=== PATIENT | male | born 1945 | race Caucasian/White ===

== ENCOUNTER 2023-06-14 07:55 | Outpatient (OUT) | payer MEDICARE, OTHER, SELFPAY ==
--- NOTE | 2023-06-14 08:04 | XR_ITS ---
The [address] [address] Patient Name: SARAH VARGAS MRN: [id number] date: 1945 Sex: M Assigned Patient Location: [facility] Current Patient Location: [facility] Accession/Order Number: [id number] Exam Date: 06/14/2023 08:10 Report Date: 06/14/2023 09:34 At the request of: PREETHI DONALD Procedure: XR chest 2V EXAM: XR chest 2V HISTORY: PRE OP EXAM COMPARISON: None. TECHNIQUE: PA and lateral views of the chest. FINDINGS: The cardiomediastinal silhouette is normal. No focal consolidation is identified. There is no pneumothorax. No pleural effusion is noted. The osseous structures are intact. XR/XR chest 2V IMPRESSION: No acute cardiopulmonary process. Electronically authenticated by: RIGO SORIA Date: 06/14/2023 09:34
--- NOTE | 2023-06-14 08:04 | ECG_ITS ---
The [facility] Test Date: 2023-06-14 Pat Name: SARAH VARGAS Department: Room: - Gender: Male Wellness Nurse: : 1945 Requested By: PREETHI DONALD Order Number: [id number] Reading MD: MAX ROGERS Measurements Intervals [place] Rate: 68 P: 60 AR: 235 QRS: 11 QRSD: 90 T: 28 QT: 382 QTc: 409 Interpretive Statements SINUS RHYTHM WITH FIRST DEGREE AV BLOCK No previous ECG available for comparison Electronically Signed On 06-16-2023 18:38:07 EDT by MAX ROGERS
--- NOTE | 2023-06-14 09:08 | P.GSHP_ITS ---
History of Present Illness History of Present Illness Chief complaint: bladder tumor, history of bladder cancer Narrative: Patient presents for preadmission testing. Please see HPI from Dr. Lafleur dated 06/12/2023. Review of Systems ROS Narrative Please see ROS from Dr. Lafleur dated 06/12/2023. [facility] Medical History (Updated 06/14/23 @ 09:01 by Tricia Archer NP) (2021) (2003) Surgical History (Updated 06/14/23 @ 09:01 by Tricia Archer NP) (05/03/22) (05/21/19) (12/16/14) (2009) (2009) (2001) (08/31/21) (06/19/18) Family History (Updated 06/14/23 @ 08:54 by Tricia Archer NP) Other Family history of breast cancer Family history of diabetes mellitus Liver disease Social History (Updated 06/14/23 @ 09:07 by Tricia Archer NP) Within the past year, how often did you have a drink containing alcohol: monthly or less Smoking status: Former smoker Previous occupational history: Retired Highest level of school completed/degree received: high school graduate Meds Home Medications and Allergies Home Medications Medication Instructions Recorded Confirmed Type atorvastatin 20 mg tablet 20 mg PO DAILY 06/14/23 06/14/23 History enalapril maleate 10 mg tablet 10 mg PO DAILY 06/14/23 06/14/23 History hydrochlorothiazide 12.5 mg capsule 12.5 mg PO DAILY 06/14/23 06/14/23 History metformin 500 mg tablet 500 mg PO BID 06/14/23 06/14/23 History omeprazole 40 mg capsule,delayed 40 mg PO BID 06/14/23 06/14/23 History release restore eye supplement PO 06/14/23 History tadalafil 20 mg tablet (Cialis) 20 mg PO DAILY PRN sexual activity 06/14/23 06/14/23 History Allergies Allergy/AdvReac Type Severity Reaction Status Date / Time Iodinated Contrast Media Allergy Rash Verified 06/14/23 08:23 Penicillins Allergy Verified 06/14/23 08:23 BCG treatment Allergy Uncoded 06/14/23 08:23 Exam Narrative Exam Narrative: Constitutional: Awake, alert, comfortable, well-appearing, nontoxic, interactive, vital signs as charted Head: Normocephalic, atraumatic Neck: Supple, normal appearance, normal range of motion, no meningeal signs, no lymphadenopathy Respiratory: No respiratory distress, breath sounds clear Cardiovascular: Regular rate and rhythm, Systolic murmur noted Abdomen: Nontender, normal bowel sounds, soft, no CVA tenderness Musculoskeletal: Normal gait, no swelling or edema Skin: No rashes or induration, no lesions, only visible skin inspected Neuro: No neurological deficits, normal sensation Psychiatric: Oriented ?3, normal affect Assessment and Plan Assessment and Plan (1) Bladder cancer: (2) Bladder tumor: Plan Cystoscopy/TURBT scheduled with Dr. Lafleur 06/20/2023.
[2023-06-14 09:17] LABS: INR 1.04; Partial Thromboplastin Time 24.4 sec (22.3-36.2)
[2023-06-14 09:47] LABS: BUN Creatinine Ratio 15.2; Calcium 8.8 mg/dL (8.5-10.1); Carbon Dioxide 30.1 mmol/L (21.0-32.0); Chloride 101 mmol/L (98-107); Estimated GFR (African America >60 (>=60); Estimated GFR (Non-African Ame >60 (>=60); Glucose 199 mg/dL (74-106); Potassium 4.1 mmol/L (3.5-5.1); Sodium 138 mmol/L (136-145)
== END 2023-06-14 07:56 | disposition home or self-care (01) ==
PROVIDERS: PCP Family Medicine; Visit Provider Urology
DX: Z01.812 Encounter for preprocedural laboratory examination (principal); Z01.810 Encounter for preprocedural cardiovascular examination; D49.4 Neoplasm of unspecified behavior of bladder; Z85.51 Personal history of malignant neoplasm of bladder; R31.9 Hematuria, unspecified; E78.5 Hyperlipidemia, unspecified; K21.9 Gastro-esophageal reflux disease without esophagitis; E11.9 Type 2 diabetes mellitus without complications; I10 Essential (primary) hypertension
CPT/HCPCS: 71046; 80048; 85610; 85730; 93005; G0463

== ENCOUNTER 2023-06-20 09:25 | Day surgery (SDC) | payer MEDICARE, OTHER, SELFPAY ==
[2023-06-14 09:02] VITALS: BP 137/72; PULSE 72; RESP 16; TEMP 36.3; O2SAT 96; BMI 27.4
[2023-06-20] VITALS (12 sets, daily range): BP systolic 132–176; BP diastolic 68–98; PULSE 60–88; RESP 10–23; TEMP 36.4–36.6; O2SAT 93–97; BMI 27.7
[2023-06-20] MEDS: LACTATED RINGER'S SOLUTION 1,000 ML 50 ML IV (09:50)
[2023-06-20 09:55] LABS: Glucometer 157 mg/dL (74-106)
[2023-06-20] MEDS: CIPROFLOXACIN IN 5 % DEXTROSE 400 MG/200 ML PIGGYBACK 200 MG IV (11:02)
--- NOTE | 2023-06-20 12:04 | P.URON_ITS ---
Urology Surgery Operative Note Operative Note Procedure Date: 06/20/23 Time Out Performed: yes Pre-op Diagnosis: recurrent bladder tumors Post-op Diagnosis: same as pre-op Procedures performed: #1. Cystoscopy. #2. Transurethral resection of bladder tumors 3cm. #3. Fulguration of tiny sheets of bladder tumors Anesthesia: FREDO Primary Surgeon: Dylan Lafleur Complications: none Estimated blood loss (mL): 0 Findings: two papillary tumors each one to one and a half centimeters in size. sheets of tiny tumors on the left wall. 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 On surveillance cystoscopy he was found to have a couple more recurren tatianna. He now presents for cystoscopy and transurethral resection of bladder tumors. He has signed an informed consent after all risks were explained to him in great detail. Detailed description of Procedure: The patient was brought to the operating room and placed on the operating room table in the supine position. SCDs were placed on the lower extremities and turned on and functioning during the entire case. Timeout was done by all parties in the room. We all agreed upon the patient's identification and the planned procedures for this patient. Genn. anesthesia was then administered. The patient was then repositioned into the modified dorsal lithotomy position. All pressure points were satisfactorily padded. Genitalia were sterilely prepped and draped in usual fashion.I started by passing a 26 Irish Olympus resectoscope with the standard bipolar loop electrode per urethra and into the bladder. Careful panendoscopy revealed 3 areas of tumors. One papillary TCC tumor on the anterior back wall which was about a centimeter and a half in size. On papillary TCC tumor on the anterior left wall which was about a centimeter and half in size.on the left wall, there was two centimeters worth of sheets of tiny tumors. I started with the papillary tumors. I uniformly and deeply resected both of these. The resection beds were coagulated Love. The ellick was used to get the tumor out of the bladder and these were sent for permanent sections. I then coagulated sheets of tiny tumors on the left wall. Upon completion there was no evidence of any bleeding or remaining tumors. The bladder was drained of its contents and the scope was then removed.the anesthetic was then reversed. The patient was then transferred to a [facility] bed and wheeled to PACU in stable condition.
--- NOTE | 2023-06-20 13:20 | PC.NURSE ---
pt urinates without difficulty
== END 2023-06-20 13:10 | disposition home or self-care (01) ==
PROVIDERS: PCP Family Medicine; Visit Provider Urology
PROC: (CPT 52234; principal; 2023-06-20 10:30)
DX: C67.9 Malignant neoplasm of bladder, unspecified (principal); Z85.51 Personal history of malignant neoplasm of bladder; R31.9 Hematuria, unspecified; E78.5 Hyperlipidemia, unspecified; K21.9 Gastro-esophageal reflux disease without esophagitis; I10 Essential (primary) hypertension; E11.9 Type 2 diabetes mellitus without complications; Z87.891 Personal history of nicotine dependence; Z79.84 Long term (current) use of oral hypoglycemic drugs; N40.1 Benign prostatic hyperplasia with lower urinary tract symptoms; E78.00 Pure hypercholesterolemia, unspecified; R97.20 Elevated prostate specific antigen [PSA]; Z87.442 Personal history of urinary calculi; N52.9 Male erectile dysfunction, unspecified; I35.0 Nonrheumatic aortic (valve) stenosis
CPT/HCPCS: 52234; 36415; 82948; 88307; J2704

== ENCOUNTER 2023-08-01 07:43 | Outpatient (RCR) | payer MEDICARE, OTHER, SELFPAY ==
[2023-08-01 07:54] VITALS: BP 163/74; PULSE 77; RESP 18; TEMP 36.3; O2SAT 96
[2023-08-01] MEDS: MITOMYCIN 40 MG in WATER FOR INJECTION,STERILE 20 ML 20 MG IRR (08:06)
[2023-08-01] MEDS: LIDOCAINE 2% JELLY 10 ML UR (08:06)
--- NOTE | 2023-08-01 08:56 | PC.NURSE ---
0805 Attempted to insert #16 rodgers catheter, unable to pass, meet resistance, notes small amount of blood in rodgers catheter. Reattempted to pass #14 Greek rodgers catheter, able to insert rodgers to y (balloon port) no urine return. irrigated with NS, with no return in rodgers catheter tubing. Balloon slowlyinflated without any complaints of pain or pressure, irrigated rodgers, with some bleeding and fluid leaking around rodgers. Patient denies any pain or discomfort, rodgers catheter dc'd. patient ambulated to bathroom, states passed small amount of blood initially then voided clear michael urine without any problems.[address] Lafleur office, Suzanna from Dr. Lafleur office instructed us to call OR at [facility] and speak with Dr. Lafleur. 0840 Called OR, spoke with charge nurse to relaymessage to Dr. Lafleur. 0845 OR returned call, to take patient to surgery department where Dr. Lafleur will place rodgers. Patient informed of this information, Patient dressed and taken ambulatory to the OR Department.
--- NOTE | 2023-08-01 09:46 | PC.NURSE ---
0940 returned to [facility]is department after having coude catheter placed per Dr. Lafleur. Returned to department with catheter plug in placed. 0938 Mitomicin infused into bladder as ordered. Patient instructed on turning position every 10 mins x 1 hour. verbalizes underdstanding.
--- NOTE | 2023-08-01 10:13 | PC.NURSE ---
0948 repositioned to rt side 1000 repositioned to left side, 1010 repositioned to abd.
== END 2023-08-15 23:59 | disposition home or self-care (01) ==
LOC: INF 07:43
PROVIDERS: PCP Family Medicine; Visit Provider Urology
DX: Z85.51 Personal history of malignant neoplasm of bladder (principal)
CPT/HCPCS: 51700; J9280

== ENCOUNTER 2023-08-01 09:11 | Outpatient (OUT) | payer MEDICARE, OTHER, SELFPAY ==
[2023-08-01] MEDS: LIDOCAINE 2% JELLY 10 ML UR (09:21)
[2023-08-01 11:15] VITALS: BP 182/78; PULSE 79; RESP 20; O2SAT 97
== END 2023-08-01 09:38 | disposition home or self-care (01) ==
PROVIDERS: PCP Family Medicine; Visit Provider Urology
DX: Z85.51 Personal history of malignant neoplasm of bladder (principal)
CPT/HCPCS: 51702; 51700; J9280

== ENCOUNTER 2024-12-14 09:46 | Outpatient (OUT) | payer MEDICARE, OTHER, SELFPAY ==
--- NOTE | 2024-12-14 10:02 | ECG_ITS ---
The [facility] Test Date: 2024-12-14 Pat Name: SARAH VARGAS Department: Room: - Gender: Male Drug Abuse Worker: : 1945 Requested By: PREETHI DONALD Order Number: [id number] Laura MD: IVONNE ALBRECHT M.D. Measurements Intervals [place] Rate: 67 P: 51 HI: 228 QRS: 20 QRSD: 92 T: 29 QT: 396 QTc: 418 Interpretive Statements SINUS RHYTHM WITH SINUS ARRHYTHMIA WITH FIRST DEGREE AV BLOCK Abnormal ECG Compared to ECG 06/14/2023 08:39:06 No significant changes Electronically Signed On 12-14-2024 20:24:59 EDT by IVONNE ALBRECHT M.D.
--- OUTSIDE RECORDS SUMMARY | 2024-12-14 10:08 | XMS_ITS | CCD ---
Author Organization [facility] Care Team Providers Care Triage Specialist Name Role Phone Ron Mcnamara Primary Care Physician Verona Aldridge Unavailable Unavailable Steffanni, Sophia Unavailable Unavailable Holleran, Suzanna Unavailable Unavailable LAFLEUR, DR ORO Consulting Unavailable REQUEST, DR WALTERS LISTED Primary Care Unavaila ble LAFLEUR, DR ORO Admitting Unavailable LAFLEUR, DR ORO Attending Unavailable LAFLEUR, DR ORO Consulting Unavailable MCNAMARA, DR VELASQUEZ Primary Care Unavailable LAFLEUR, DR ORO Attending Unavailable LAFLEUR, DR ORO Admitting Unavailable FULLER, RIAN Consulting Unavailable LAFLEUR, DR ORO Consulting Unavailable LAFLEUR, DR ORO Attending Unavailable MCNAMARA, DR VELASQUEZ Primary Care Unavailable LAFLEUR, DR ORO Admitting Unavailable PACE, FANNIE Consulting Unavailable LAFLEUR, DR ORO Consulting Unavailable LAFLEUR, DR ORO Attending Unavailable MCNAMARA, DR VELASQUEZ Referring Unavailable LAFLEUR, DR ORO Admitting Unavailable REQUEST, DR WALTERS LISTED Primary Care Unavaila ble LAFLEUR, DR ORO Consulting Unavailable LAFLEUR, DR ORO Attending Unavailable MCNAMARA, DR VELASQUEZ Primary Care Unavailable LAFLEUR, DR ORO Admitting Unavailable AGUBOSIM, JOSE FRANCISCO Consulting Unavailable LANGDAVID, YOON Consulting Unavailable LAFLEUR, DR ORO Consulting Unavailable MCNAMARA, DR VELASQUEZ Primary Care Unavailable LAFLEUR, DR ORO Admitting Unavailable LAFLEUR, DR ORO Attending Unavailable LONG, HOLLY Consulting Unavailable GRETCHEN, LISBET Consulting Unavailable LAFLEUR, DR ORO Consulting Unavailable LAFLEUR, DR ORO Attending Unavailable MCNAMARA, DR VELASQUEZ Primary Care Unavailable LAFLEUR, DR ORO Admitting Unavailable LAFLEUR, DR ORO Consulting Unavailable REQUEST, DR WALTERS LISTED Primary Care Unavaila ble LAFLEUR, DR ORO Admitting Unavailable LAFLEUR, DR ORO Attending Unavailable LAFLEUR, DR ORO Consulting Unavailable LAFLEUR, DR ORO Attending Unavailable LAFLEUR, DR ORO Admitting Unavailable REQUEST, NONE LISTED Primary Care Unavaila ble LAFLEUR, DR ORO Consulting Unavailable LAFLEUR, DR ORO Attending Unavailable LAFLEUR, DR ORO Admitting Unavailable REQUEST, NONE LISTED Primary Care Unavaila Ron Clemons MD Unavailable [phone] Ron Mcnamara MD Primary Care Provider [phone] Preethi LAFLEUR Attending Unavailable LAFLEUR, Preethi Arango Attending Unavailable LAFLEUR, Preethi Arango Attending Unavailable LAFLEUR, Preethi Arango Admitting Unavailable RON MCNAMARA Attending Unavailable RON MCNAMARA Attending Unavailable ASH BARROS Attending Unavailable SANDRA AUGUST Attending Unavailab RON Drummond Attending Unavailable Preethi LAFLEUR Attending Unavailable LAFLEURPreethi Attending Unavailable LAFLEUR, Preethi Arango Admitting Unavailable LAFLEUR, Preethi Arango Attending Unavailable Allergies Allergy Classification Reported Allergen(s) Allergy Type Date of Onset Reaction(s) Facility (10 sources) BCG, Live, [place] Strain; Translations: [BCG vaccine] Drug Allergy Fever (finding) [facility] Comment on above: had flu like symptom s (13 sources) Penicillin; Translations: [penicillin] Drug Allergy Eruption of skin (disorder) [facility] (13 sources) IVP - Intravenous pyelogram; Translations: [Intravenous pyelogram (procedure)] Drug allergy Dyspnea (finding[facility] (1 source) Iodine (And Iodine Containting Drugs) Drug allergy (disorder) 5 [facility] (1 source) Penicillins Drug allergy (disorder) 5 [facility] (1 source) BCG Live Drug allergy (disorder) 5 [facility] (10 sources) BCG, Live, [place] Strain Drug Allergy 3 Fever [facility] (10 sources) Iodine Drug Allergy 2 Unknown [facility] (10 sources) Penicillin G Drug Allergy 3 [facility] (10 sources) Iodinated Contrast Media Drug Intolerance 3 [facility] Work Phone: (3 sources) BCG; Translations: [BCG] Propensity to adverse reactions (disorder) [facility] Medications Current Medications Medication Drug Class(es) Dates Sig (Normalized) Sig (Original) aspirin 81 mg delayed release oral tablet (7 sources) Platelet Aggregation Inhibitor, Nonsteroidal Anti-inflammatory Drug Start: 01-25-2022 End: 03-25-2024 take 1 tablet by mouth once daily aspirin 81 mg Oral EC Tab 81 mg = 1 tab(s), Oral, Daily, # 30 tab(s), Refills(s) 0, Pharmacy: [facility], 182.9, cm, 01/24/22 14:35:00 EDT, Height/Length Dosing, 94.1, kg, 01/24/22 14:35:00 EDT, Weight Dosing Start Date: 01/25/22 Status: Ordered Start: 01-25-2022 take 1 tablet by esther th once daily aspirin 81 mg Oral EC Tab 81 mg = 1 tab(s), Oral, Daily, # 30 tab(s), Refills(s) 0, Pharmacy: [facility] 1985, 182.9, cm, 01/24/22 14:35:00 EDT, Height/Length Dosing, 94.1, kg, 01/24/22 14:35:00 EDT, Weight Dosing Start Date: 01/25/22 Status: Ordered atorvastatin 40 mg oral tablet (20 sources) HMG-CoA Reductase Inhibitor Start: 08-26-2023 End: 08-26-2024 atorvastatin (Lipitor) 40 MG tablet Indications: Aortic valve stenosis, etiology of cardiac valve disease unspecified TAKE 1 TABLET ONCE DAILY (INCREASED DOSE) 90 tablet 1 08/26/2024 Active Start: 08-12-2017 take 1 tablet by esther th once daily atorvastatin 20 mg Tab 20 mg = 1 tab(s), Oral, Daily, High cholesterol Start Date: 08/12/17 Status: Ordered cephalexin 500 mg oral capsule (1 source) Cephalosporin Antibacterial Start: 06-27-2022 End: 07-04-2022 take 1 capsule by mouth every twelve hours Keflex 500 mg Cap 500 mg = 1 cap(s), Oral, q12hr, Don't start antibiotic until urine submitted for culture., X 7 day(s), # 14 cap(s), Refills(s) 0, Pharmacy: [facility] 1986, 182, cm, 02/20/22 14:11:00 EDT, Height/Length Dosing, 96, kg, 02/20/22 14:11:00 EDT, Keith... Start Date: 06/27/22 Stop Date: 07/04/22 Status: Ordered ciprofloxacin 500 mg oral tablet (13 sources) Quinolone Antimicrobial Start: 06-04-2024 End: 06-09-2024 take 1 tablet by mouth in the morning ciprofloxacin (Cipro) 500 MG tablet Indications: Encounter for counseling for travel Take 1 tablet (500 mg) by mouth in the morning and 1 tablet (500 mg) before bedtime. Do all this for 5 days. 10 tablet 06/04/2024 06/09/2024 Active Start: 11-14-2022 End: 03-25-2024 ciprofloxacin (Cipro) 500 MG tablet Take 500 mg by mouth 11/14/2022 03/25/2024 Discontinued Start: 12-21-2021 take 1 tablet by esther once daily Cipro 500 mg Tab 500 mg = 1 tab(s), Oral, Daily, Take 1 tablet the day before the procedure and 1 tablet after the procedure, # 2 tab(s), Refills(s) 0, Pharmacy: [facility] 1986, 182, cm, 09/06/21 9:48:00 EST, Height/Length Dosing, 99, kg, 09/06/21 9:48:00 EST,... Start Date: 12/21/21 Status: Ordered Colace (6 sources) Start: 07-01-2023 Colace Oral, B ID, Refills(s) 0 Start Date: 07/01/23 Status: Ordered End: 03-25-2024 Docusate Calcium (STOOL SOFT ENER PO) Stool Softener 03/25/2024 Discontinued enalapril maleate 10 mg oral tablet (10 sources) Angiotensin Converting Enzyme Inhibitor Start: 03-23-2019 take 1 tablet by mouth once daily enalapril 10 mg Tab 10 mg = 1 tab(s), Oral, Daily, Refills(s) 0, High blood pressure Start Date: 03/23/19 Status: Ordered Fish Oils (6 sources) Start: 12-25-2010 take 1000 mg by mouth twice daily Fish Oil 1,000 mg, Oral, BID, Refill(s) 0, Prophylaxis Start Date: 12/25/10 Status: Ordered glipiZIDE 5 mg oral tablet (17 sources) Sulfonylurea Start: 11-13-2023 End: 08-26-2024 take 1 tablet by mouth once daily glipiZIDE (Glucotrol) 5 MG tablet Indications: Type 2 diabetes mellitus without complication, without long-term current use of insulin (CMS/HCC) Take 1 tablet (5 mg) by mouth Daily 90 tablet 1 08/26/2024 Active Start: 09-11-2017 take 5 mg by mouth once daily glipiZIDE 5 mg, Oral, Daily, Refills(s) 0, High blood sugar Start Date: 09/11/17 Status: Ordered hydroCHLOROthiazide 12.5 mg oral capsule (20 sources) Thiazide Diuretic Start: 11-13-2023 End: 08-26-2024 take 1 capsule by mouth in the morning hydroCHLOROthiazide (Microzide) 12.5 MG capsule Indications: Primary hypertension (CMS/HCC) Take 1 capsule (12.5 mg) by mouth in the morning. 90 capsule 1 08/26/2024 Active Start: 09-11-2017 take 12.5 mg by mout h once daily hydrochlorothiazide 12.5 mg, Oral, Daily, Refills(s) 0, diuretic/water pill Start Date: 09/11/17 Status: Ordered hydrocortisone 0.025 mg/mg topical ointment (10 sources) Corticosteroid Start: 08-26-2023 hydrocortisone 2.5 % ointment Indications: Diabetes mellitus without complication (CMS/HCC) APPLY TO AFFECTED AREA TWICE DAILY FOR 30 DAYS 145 g 08/26/2023 Active lisinopril 10 mg oral tablet (13 sources) Angiotensin Converting Enzyme Inhibitor Start: 08-26-2023 End: 08-26-2024 lisinopril 10 MG tablet Indications: Primary hypertension (CMS/HCC) TAKE 1 TABLET ONCE DAILY (REPLACES ENALAPRIL) 90 tablet 08/26/2024 Active metFORMIN hydrochloride 500 mg oral tablet (20 sources) Biguanide Start: 08-26-2024 End: 08-26-2025 take 1 tablet by mouth in the morning metFORMIN (Glucophage) 500 MG tablet Indications: Type 2 diabetes mellitus without complication, without long-term current use of insulin (CMS/HCC) Take 1 tablet (500 mg) by mouth in the morning and 1 tablet (500 mg) in the evening. Take with meals. 180 tablet 1 08/26/2024 08/26/2025 Active Start: 07-12-2023 End: 08-26-2024 take 0.5 tablet by mouth in the morning metFORMIN (Glucophage) 1000 MG tablet Indications: Type 2 diabetes mellitus without complication, without long-term current use of insulin (CMS/HCC) Take 0.5 tablets (500 mg) by mouth in the morning and 0.5 tablets (500 mg) in the evening. Take with meals. 180 tablet 07/12/2023 08/26/2024 Discontinued (Reorder) Start: 10-20-2020 take 1 tablet by esther th twice daily metformin 500 mg oral tablet 500 mg = 1 tab(s), Oral, BID, Refills(s) 0, Blood glucose Start Date: 10/20/20 Status: Ordered omeprazole 40 mg delayed release oral capsule (18 sources) Proton Pump Inhibitor Start: 08-11-2012 End: 08-26-2024 take 1 capsule by mouth in the morning omeprazole (PriLOSEC) [address] capsule Indications: Gastroesophageal reflux disease without esophagitis Take 1 capsule (40 mg) by mouth in the morning and 1 capsule (40 mg) before bedtime. 180 capsule 3 08/26/2024 Active Prilosec 40 mg Cap-EC (3 sources) Start: 08-11-2012 take 1 capsule by mouth twice daily Prilosec 40 mg Cap-EC 40 mg, Oral, BID, Refills(s) 0, Indigestion Start Date: 08/11/12 Status: Ordered restore- eye supplement (10 sources) Start: 10-20-2020 take 2 tablets by mouth once daily restore- eye supplement restore- eye supplement, 2 tab(s), Oral, Daily Start Date: 10/20/20 Status: Ordered sildenafil 100 mg oral tablet (2 sources) Phosphodiesterase 5 Inhibitor Start: 02-20-2024 take 1 tablet by mouth once daily as needed Viagra 100 mg Tab 100 mg = 1 tab(s), Oral, Daily, 1 hour before sexual activity as needed, # 30 tab(s), Refills(s) 3, Pharmacy: [facility], 182, cm, 06/24/23 6:36:00 EDT, Height/Length Dosing, 94.8, kg, 06/24/23 6:36:00 EDT, Weight Dosing Start Date: 02/20/24 Status: Ordered tamsulosin hydrochloride 0.4 mg oral capsule (6 sources) alpha-Adrenergic Gerard Start: 03-03-2023 take 1 capsule by mouth once daily tamsulosin 0.4 mg Cap 0.4 mg = 1 cap(s), Oral, Daily, # 30 cap(s), Refills(s) 3, Pharmacy: [facility] 1986, 182, cm, 11/14/22 7:35:00 EST, Height/Length Dosing, 98.1, kg, 11/14/22 7:35:00 EST, Weight Dosing Start Date: 03/03/23 Status: Ordered Start: 03-03-2023 End: 03-25-2024 take 1 capsule by mouth every twenty-four hours tamsulosin (Flomax) 0.4 MG 24 hr capsule Take 0.4 mg by mouth. 03/03/2023 03/25/2024 Discontinued Completed/Discontinued Medications Medication Drug Class(es) Dates Sig (Normalized) Sig (Original) acetaminophen 325 mg / oxyCODONE hydrochloride 5 mg oral tablet (3 sources) Opioid Agonist Start: 07-01-2023 End: 03-25-2024 take 1 tablet by mouth every six hours as needed oxyCODONE-acetamino phen (Percocet) 5-325 MG tablet TAKE 1 TABLET BY MOUTH EVERY 6 HOURS NEEDED WITH FOOD OR MILK FOR PAIN . DO NOT EXCEED 4000 MG OF ACETAMINOPHEN PER 24 HOURS 07/01/2023 03/25/2024 Discontinued Insulin Lispro (2 sources) Insulin Analog Start: 01-25-2022 End: 01-25-2022 Insulin Lispro Sliding Scale 0-10 Units, Injection-Insulin, SubCutaneous, Start date 01/25/22 16:30:00 EDT Start Date: 01/25/22 Stop Date: 01/25/22 Status: Completed Start: 01-25-2022 End: 01-25-2022 Insulin Lispro Sliding Scale 0-10 Units, Injection-Insulin, SubCutaneous, Start date 01/25/22 11:30:00 EDT Start Date: 01/25/22 Stop Date: 01/25/22 Status: Completed Isopropyl Alcohol (2 sources) Start: 10-01-2022 End: 03-25-2024 SURE COMFORT INS SYR 1CC/28G 28G X 1/2 1 ML misc 10/01/2022 03/25/2024 Discontinued tadalafil 20 mg oral tablet (8 sources) Phosphodiesterase 5 Inhibitor Start: 08-09-2021 take 1 tablet by mouth once daily Cialis 20 mg Tab 20 mg = 1 tab(s), Oral, Daily, Take 1 tab daily, # 30 tab(s), Refills(s) 3, Pharmacy: [facility] 1986, 182, cm, 08/09/21 7:49:00 EST, Height/Length Dosing, 99, kg, 08/09/21 7:49:00 EST, Weight Dosing Start Date: 08/09/21 Status: Ordered Problems Active Problems Problem Classification Problem Date Documented Date Episodic/Chronic Cancer of bladder (20 sources) Malignant tumor of urinary bladder; Translations: [Malignant neoplasm of bladder, unspecified] Onset: 12-07-2021 03-23-2019 Chronic Cancer of bladder (20 sources) History of malignant neoplasm of bladder; Translations: [Personal history of malignant neoplasm of bladder] Onset: 12-26-2018 Episodic Cancer; other and unspecified primary (10 sources) H/O: malignant neoplasm 09-06-2021 Episodic Cancer; other and unspecified primary (10 sources) History of bladder neoplasm 09-04-2019 Episodic Chronic obstructive pulmonary disease and bronchiectasis (3 sources) Chronic obstructive pulmonary disease, unspecified; Translations: [Chronic obstructive lung disease] Onset: 09-12-2021 10-06-2024 Chronic Conduction disorders (10 sources) First degree atrioventricular block; Translations: [Atrioventricular block, first degree] Onset: 05-17-2016 04-10-2023 Chronic Deficiency and other anemia (1 source) Aplastic anemia, unspecified; Translations: [APLASTIC ANEMIA UNSPECIFIED] Onset: 01-17-2022 Chronic Diabetes mellitus with complications (6 sources) Cataract due to diabetes mellitus type 2; Translations: [Type 2 diabetes mellitus with diabetic cataract] 10-06-2024 Chronic Diabetes mellitus without complication (20 sources) Diabetes mellitus; Translations: [Type 2 diabetes mellitus without complication] Onset: 12-25-2018 03-23-2019 Chronic Diabetes mellitus without complication (2 sources) Hyperglycemia; Translations: [Hyperglycemia, unspecified] 10-06-2024 Episodic Disorders of lipid metabolism (20 sources) Hypercholesterolemia; Translations: [Hyperlipidemia] Onset: 01-24-2022 03-23-2019 Chronic Esophageal disorders (20 sources) Gastroesophageal reflux disease; Translations: [Gastroesophageal reflux disease without esophagitis] Onset: 01-24-2022 11-27-2013 Chronic Essential hypertension (20 sources) Essential hypertension; Translations: [Essential (primary) hypertension] Onset: 01-24-2022 Chronic Headache; including migraine (10 sources) Complicated migraine; Translations: [Migraine with aura, not intractable, without status migrainosus] Onset: 03-07-2023 03-07-2023 Chronic Headache; including migraine (1 source) Headache; Translations: [Headache, unspecified] Onset: 01-24-2022 Episodic Heart valve disorders (20 sources) Aortic stenosis, non-rheumatic ; Translations: [Nonrheumatic aortic (valve) stenosis] Onset: 05-17-2016 Chronic Hyperplasia of prostate (20 sources) Benign prostatic hypertrophy with outflow obstruction; Translations: [Benign prostatic hyperplasia with lower urinary tract symptoms] Onset: 09-12-2021 Chronic Osteoarthritis (10 sources) Localized, primary osteoarthritis of the shoulder region; Translations: [Primary osteoarthritis, unspecified shoulder] Onset: 03-07-2023 03-07-2023 Chronic Other aftercare (2 sources) Taking high risk medication; Translations: [Other residential (current) drug therapy] 01-30-2024 Episodic Other diseases of bladder and urethra (20 sources) Mass of urinary bladder; Translations: [Other specified disorders of bladder] Onset: 04-10-2023 05-20-2019 Chronic Other male genital disorders (20 sources) Male erectile dysfunction, unspecified; Translations: [Erectile dysfunction] Onset: 01-03-2022 Chronic Other male genital disorders (10 sources) Impotence 08-18-2019 Chronic Other nervous system disorders (1 source) Aphasia; Translations: [Aphasia] Onset: 01-24-2022 Chronic Other nervous system disorders (1 source) Postoperative pain ; Translations: [Other acute postprocedural pain] Onset: 07-01-2023 Episodic Other nutritional; endocrine; and metabolic disorders (6 sources) Body mass index 25-29 - overweight 05-10-2021 Episodic Spondylosis; intervertebral disc disorders; other back problems (20 sources) Cervical spondylosis; Translations: [Spondylosis without myelopathy or radiculopathy, cervical region] Onset: 02-10-2021 03-07-2023 Chronic Transient cerebral ischemia (10 sources) Transient cerebral ischemia; Translations: [Transient cerebral ischemic attack, unspecified] Onset: 03-07-2023 03-07-2023 Chronic Unclassified (1 source) CONTACT W/AND (SUSP) EXPOS COVID-19; Translations: [CONTACT W/AND (SUSP) EXPOS COVID-19] Onset: 05-01-2022 Past or Other Problems Problem Classification Problem Date Documented Da te Episodic/Chronic Abdominal hernia (20 sources) Right inguinal hernia ; Translations: [Inguinal hernia] Onset: 04-10-2023 10-18-2020 Episodic Calculus of urinary tract (20 sources) Kidney stone; Translations: [Calculus of kidney] Onset: 04-10-2023 03-23-2019 Episodic Genitourinary symptoms and ill-defined conditions (20 sources) Microscopic hematuria; Translations: [Hematuria, unspecified] Onset: 05-01-2022 04-24-2019 Episodic Inflammatory conditions of male genital organs (10 sources) Epididymitis Resolved: 03-23-2019 03-23-2019 Episodic Mood disorders (10 sources) Mood disorders Onset: 01-30-2024 01-30-2024 Neoplasms of unspecified nature or uncertain behavior (20 sources) Neoplasm of bladder; Translations: [Neoplasm of unspecified behavior of bladder] Onset: 01-03-2022 Episodic Other aftercare (1 source) Other residential (current) drug therapy; Translations: [OTH RESIDENTIAL CURRENT DRUG THERAPY] Onset: 05-09-2022 Episodic Other aftercare (1 source) intermediate card tender (current) use of oral hypoglycemic drugs; Translations: [TRACK PRODUCTION ENGINEER USE ORAL HYPOGLYCEMIC DX] Onset: 05-09-2022 Episodic Other aftercare (1 source) intermediate card tender (current) use of aspirin; Translations: [RESIDENTIAL CURRENT USE OF ASPIRIN] Onset: 05-09-2022 Episodic Other aftercare (1 source) snf (current) use of anticoagulants; Translations: [TRACK PRODUCTION ENGINEER CURRNT USE ANTICOAGULANTS] Onset: 05-01-2022 Episodic Other and unspecified benign neoplasm (1 source) Benign neoplasm of bladder; Translations: [BENIGN NEOPLASM OF BLADDER] Onset: 09-12-2021 Episodic Other circulatory disease (1 source) Personal history of transient ischemic attack (TIA), and cerebral infarction without residual deficits; Translations: [PERS HX TIA AND CI NO RESID DEFICIT] Onset: 05-09-2022 Episodic Other connective tissue disease (10 sources) Impingement syndrome of left shoulder region; Translations: [Impingement syndrome of left shoulder] Onset: 03-07-2023 03-07-2023 Episodic Other nutritional; endocrine; and metabolic disorders (14 sources) Overweight; Translations: [Overweight] Onset: 01-30-2024 06-21-2023 Episodic Other nutritional; endocrine; and metabolic disorders (20 sources) Overweight in adulthood with body mass index of 25 or more but less than 30; Translations: [Body mass index (BMI) 29.0-29.9, adult] Onset: 04-10-2023 06-21-2023 Episodic Other screening for suspected conditions (not mental disorders or infectious disease) (20 sources) Raised prostate specific antigen; Translations: [Elevated prostate specific antigen [PSA]] Onset: 09-12-2021 03-23-2019 Episodic Residual codes; unclassified (2 sources) Patient encounter status; Translations: [Other specified health status] Onset: 01-24-2022 Episodic Screening and history of mental health and substance abuse codes (20 sources) Ex-smoker; Translations: [Personal history of nicotine dependence] Onset: 09-12-2021 08-18-2019 Episodic Results Test Name Value Interpretation Reference Range Facility [facility]erson 11-27-2024 Reminders Reminders From: Nuzhat Steve To: EU - Recalls Lafleur; Sent: 07/23/2024 12:57:51 EST Show up: 11/14/2024 12:57:00 EST Subject: Cysto/FISH/cytol Due Date/Time: 12/07/2024 12:57:00 EDT Reminder/Recall Patient is due in February 2025 for 6 month cysto/fish/cytol (bt ck) Patient sched for TURBT on 12/24/24. LG Normal [facility] - Hematology and Cell countson 10-06-2024 HbA1c (Bld) [Mass fraction] 7.2 % [facility] No Panel Informationon 10-06 [facility] UroVysion Fish and Urine Cyt o ([facility])on 09-02-2024 UVFISH & UC Diagnosis Info Invalid Interpretation Code [facility] Comment on above: Result Comment: A:Ur ine,Urine:Voided Diagnosis Summary - Adequate cellularity for evaluation. Diagnosis Summary - The U[facility]Vysion FISH study detected normal copy numbers for chromosomes 3, 7, 17, and 9p21. 73 cells were analyzed in this evaluation. No evidence of aneuploidy for chromosomes 3, 7, or 17 or deletion of the 9p21 locus was found in cells present in this specimen. This test does not rule out the possibility of a low grade non-invasive papillary urothelial carcinoma. These findings should be correlated with cytology and cystoscopy results. * CPT: 03531, 63417. Microscopic Notes - Microscopic Notes - Abnormal cells 9p21 deletions: Abnormal cells aneploid events: Total cells analyzed: 73 Hematuria: Gross Description Site ID:A color Yellow fixative Alcohol Received 110 mls of clear yellow fluid with the patient's name and, Urine on the vial. Electronically signed by : on: 09/02/2024 16:09:23 Performed By: #### 1 [id number] #### [facility] [address] [place] [address] Ambulatory Visit Summaryon 1 10-27-2023 Ambulatory Visit Summary Ambulatory Visit Summary SAMSARAH :1945 Visit Date:08/26/2024 Ambulatory Visit Instructions Your Diagnosis Personal history of bladder cancer BPH with urinary obstruction Erectile dysfunction Bladder neoplasm of uncertain malignant potential Your Care Team Attending Physician - Preethi LAFLEUR MD Primary Care Physician - Los JENKINS, Ron Perea This Is Your Medications List Contact prescribing physician if questions or concerns Non-Formulary Medication (restore- eye supplement) atorvastatin (atorvastatin 20 mg Tab) docusate (Colace) enalapril (enalapril 10 mg Tab) glipiZIDE (glipiZIDE 5 mg Tab) hydrochlorothiazide metformin (metformin 500 mg oral tablet) omeprazole (Prilosec 40 mg Cap-EC) Procedures Performed Cystoscopy (08/26/2024), Flexible cystoscopy (03/25/2024), Laparoscopic repair of inguinal hernia (07/01/2023), Cystoscopy (06/12/2023), Cystoscopy (11/14/2022), Cystoscopy (01/03/2022), Cystoscopy (08/09/2021), Cystoscopy (05/10/2021), Cystoscopy (01/18/2021), Repair of right inguinal hernia (10/27/2020), 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 (08/30/2020), Cystoscopy (06/22/2020), Cystoscopy (03/30/2020), Cystoscopy (01/06/2020), Cystoscope (08/18/2019), TURBT - Transurethral resection of bladder tumour (05/21/2019), Cystoscopy (12/30/2018), Cystoscopy to remove object (06/30/2018), Cystoscopy and transurethral resection of bladder tumour (06/19/2018), History of ureteral stent placement (06/19/2018), Cataract extraction and insertion of intraocular lens (08/12/2017), TURP - Transurethral resection of prostate (06/07/2016), Urodynamics (02/01/2016), Urodynamics (02/01/2016), Laser bladder lesion therapy (05/30/2010), Cystoscopy (07/20/2009), TURBT - Transurethral resection of bladder tumor (05/05/2009), ESWL of kidney (09/16/2008), Removal of ureteral stent (09/16/2003), Cataract. Discharge Vitals Temperature (Temporal Artery) 37 ???C Heart Rate (Peripheral) 78 Respiratory Rate 16 Blood Pressure 121/76 Height 182 cm Height 72 in Weight 97.7 kg Weight 215.391 lb BMI 29.5 What to do next Scheduled Follow-Up Appointments Saturday 9:30 AM EDT With: Preethi LAFLEUR MD Where: [facility] [address] [address]- You Need to Schedule the Following Appointments Follow Up with Preethi LAFLEUR MD, URL When: Where: [facility] [address] , [place] [address]- Medications What How Much When Instructions Unchanged atorvastatin (atorvastatin 20 mg Tab) 1 Tablets By Mouth Every day Contact prescribing physician if questions or concerns Unchanged docusate (Colace) By Mouth 2 times a day Contact prescribing physician if questions or concerns Unchanged enalapril (enalapril 10 mg Tab) 1 Tablets By Mouth Every day Contact prescribing physician if questions or concerns Unchanged glipiZIDE (glipiZIDE 5 mg Tab) Contact prescribing physician if questions or concerns Unchanged hydrochlorothiazide 12.5 Milligram By Mouth Every day Contact prescribing physician if questions or concerns Unchanged metformin (metformin 500 mg oral tablet) 1 Tablets By Mouth 2 times a day Contact prescribing physician if questions or concerns Unchanged Non-Formulary Medication (restore- eye supplement) 2 Tablets By Mouth Every day Contact prescribing physician if questions or concerns Unchanged omeprazole (Prilosec 40 mg Cap-EC) 40 Milligram By Mouth 2 times a day Contact prescribing physician if questions or concerns Medications and Immunizations Administered Given lidocaine Top 2% Gel w/Appl 6 mL, 6 mL, Topical. For: Personal history of bladder cancer, BPH with urinary obstruction, Erectile dysfunction Allergies BCG (Fever) IVP - Intravenous pyelogram (hives, SOB - Shortness of breath) penicillin (Rash) Problems Ongoing - Any problem that you are currently receiving treatment for. Bladder cancer Bladder mass Bladder neoplasm of uncertain malignant potential Bladder tumor BMI 28.0-28.9,adult BPH with urinary obstruction Chronic GERD Diabetes Elevated cholesterol Elevated PSA Erectile dysfunction Former smoker Hematuria, microscopic History of bladder cancer Hyperlipidemia Hypertension Impotence Kidney stone Overweight Personal history of bladder cancer Reducible left inguinal hernia Historical - Any problem that you are no longer receiving treatment for. Acid reflux Epididymitis Right inguinal hernia Patient Survey You may receive a survey via text or e-mail asking about your office visit. Please share your experience with us by completing your survey. We appreciate your feedback and thank you for choosing us for your care. Education Materials Transurethral Resection of Bladder Tumor, Care After The following information offers guidance on how to care for yourself after yo (more content not included)... Normal [facility] UroVysion Fish and Urine Cyt o ([facility])on 08-26-2024 [facility] Method of Extraction Voided Normal [facility] Comment on above: Performed By: #### 1 [id number] #### [facility] [address] [place] [address] [facility] Number of Jars 1 Invalid Interpretation Code [facility] Comment on above: Performed By: #### 1 [id number] #### [facility] [address] [place] [address] [facility] Specimen Urine Normal [facility] Comment on above: Performed By: #### 1 [id number] #### [facility] [address] [place] [address] [facility] Type of Service Technical Only Normal [facility] Comment on above: Performed By: #### 1 [id number] #### [facility] [address] [place] [address] Urology Office/Clinic Noteon 08-26-2024 Urology Office/Clinic Note Urology Office/Clinic Note Chief Complaint personal hx of bladder cancer HPI Staff Cysto ABX TAKEN, need fish/cytol History of Present Illness Tests reviewed: I have reviewed the previous health record information and history for this patient from Dr. Lafleur. I have reviewed and verified the staff HPI to be accurate for this encounter. Review of Systems PHQ Score Initial Depression Screen Score: 0 SCORE ROS - Provider Constitutional: denies weight loss, denies hot flashes. Eyes: denies eye problems. Gastrointestinal: denies nausea, denies vomiting. Cardiovascular: denies chest pain or angina. Integumentary: no dryness Musculoskeletal: denies musculoskeletal symptoms. ENMT: denies otolaryngeal symptoms. Respiratory: no shortness of breath. Heme/Lymph: denies easy bleeding tendency, denies easy bruising tendency. Psychiatric: no confusion, no anxiety. Genitourinary: See HPI. Physical Exam Vitals & Measurements T: 37 ???C(Temporal Artery) HR: 78(Peripheral) RR: 16 BP: 121/76 HT: 72 in HT: 182 cm WT: 97.7 kg WT: 215.391 lb BMI: 29.5 General Appearance: alert, no distress, well nourished, well developed male. Genitourinary: normal scrotum, normal testes, normal urethra, normal epididymis, normal vas deferens/spermatic cord. Flank Pain: none. Bladder: nonpalpable. Procedure Operative Information Anesthesia Type: Local Procedure: Local Cystoscopy Complications: None Surgical risks, benefits, details of the procedure have been explained to the patient. Full informed consent has been obtained. Intraoperative Information Prepped: Patient is brought back to the endoscopy suite. Patient is placed in supine position. Patient prepped in the usual fashion with Betadine solution. 2% Xylocaine Jelly is placed per Urethra. After waiting several minutes, the Cystoscope is introduced. The Urethra is: Normal The Prostatic Urethra is: _Bilobar regrowth. Visual obstruction. The Bladder: _Three 1 cm classic TCC tumors at the back wall and dome, Trabeculated: Moderate (2) The Ureteral orifices: Show efflux of clear urine Specimens Removed: Voided specimen sent for FISH and Cytology test Removal: Cystoscope is removed. The patient tolerated it well. Postoperative Information Patient is discharged home with antibiotic coverage. Follow up arranged. Assessment/Plan 1. Personal history of bladder cancer (Z85.51: Personal history of malignant neoplasm of bladder) We do not have the original path. First record of cysto in [place] was 03/23/09 for hx of bladder cancer. First TURBT in our records 05/05/09 - Papillary transitional cell carcinoma, grade 2, non-invasive. Evolve laser of bladder tumor 08/30/20 - Noninvasive papillary urothelial low grade carcinoma. Mitomycin txs 05/25/21 and 06/26/21. TURBT 08/31/21 - Low grade non-invasive papillary cancer. TURBT 05/03/22 - Noninvasive papillary urothelial carcinoma, low grade. Mitomycin 06/21/22 and 08/23/22. TURBT 06/20/23 - Noninvasive papillary urothelial carcinoma, low grade. Mitomycin 08/01/23 and 08/29/23. Last cysto 03/25/24. Pt had 5 mo IO cysto to check for bladder tumor recurrence without complications today. Pt took prophylactic abx prior to procedure. Will send voided specimen for FISH/cytol and call pt if positive. 2. BPH with urinary obstruction (N40.1: Benign prostatic hyperplasia with lower urinary tract symptoms) S/P TURP 06/07/16. Not taking any BPH meds. 3. Erectile dysfunction (N52.9: Male erectile dysfunction, unspecified) Tri-mix and Cialis 20 mg prn. 4. Bladder neoplasm of uncertain malignant potential (D41.4: Neoplasm of uncertain behavior of bladder) See procedure section. Will schedule Cysto with TURBT. The procedure risks, benefits, details, and treatment alternatives have been discussed with the patient. These include bleeding -- sometimes to the point of hemorrhaging, infection, risk of bladder perforation, recurrence of bladder tumor in 60-70% of patients, need for indwelling catheter for a variable amount of time, as well as the rare risk of needing an open operation to repair the bladder, among others. Additional therapy as well as follow-up bladder evaluation will most likely be required. Full informed consent has been obtained. Will order General anesthesia. Follow-up With When Contact Information Preethi LAFLEUR MD, URL [facility] [address], [place] [address]- Additional Instructions: schedule Cysto with TURBT Patient Education Transurethral Resection of Bladder Tumor, Care After Transurethral Resection of Bladder Tumor ISheryl, personally scribed for Dr. Lafleur on 08/26/2024 08:03:14. . Documentation recorded by the scribe, Sheryl Augustin, accurately reflects the services(s) I performed and decisions made by me. Authenticated by Dr. Lafleur on 08/26/2024 08:04:02. Problem List/Past Medical History Ongoin (more content not included)... Normal [facility] Comment on above: Result Comment: Elec tronically Signed By: Preethi LAFLEUR MD\.br\Date and Time Signed: 08/26/24 08:04 EST\.br\Electronically Co-Signed By: Sheryl Augustin\.br\Date and Time Co-Signed: 08/26/24 08:03 EST Laboratory - Hematology and Cell countson 08-25-2024 HbA1c (Bld) [Mass fraction] 8.4 % [facility] No Panel Informationon 08-25 [facility] Reminderson 07-23-2024 Reminders Reminders From: Nuzhat Steve To: [facility] [place]; Sent: 03/31/2024 11:04:56 EDT Show up: 07/17/2024 11:04:00 EDT Subject: cysto/fish/cytol Due Date/Time: 08/10/2024 11:04:00 EST Reminder/Recall Patient is due in Sep 2024 for 6 month cysto/fish/cytol, bt ck Patient sched 08/26/24 due to vacation schedule.LG Normal [facility] Reminderson 03-31-2024 Reminders Reminders From: Nuzhat Steve To: [facility] - Recalls Lafleur; Sent: 02/04/2024 13:46:11 EDT Show up: 03/24/2024 13:46:00 EDT Subject: Cysto - Due Date/Time: 04/13/2024 13:46:00 EDT Reminder/Recall Patient is leaving 06/11/24 for cruise [place] 75 days. He will need a Cysto on return. Patient had cysto completed on 03/25/24. He is 6 month cysto/fish/cytol. Normal [facility] UroVysion Fish and Urine Cyt o ([facility])on 03-30-2024 [facility] Diagnosis Info Invalid Interpretation Code [facility] Comment on above: Result Comment: A:Ur ine,Urine:Voided Diagnosis Summary - Adequate cellularity for evaluation. Diagnosis Summary - The UroVysion FISH study detected normal copy numbers for chromosomes 3, 7, 17, and 9p21. 200 cells were analyzed in this evaluation. No evidence of aneuploidy for chromosomes 3, 7, or 17 or deletion of the 9p21 locus was found in cells present in this specimen. This test does not rule out the possibility of a low grade non-invasive papillary urothelial carcinoma. These findings should be correlated with cytology and cystoscopy results.* Microscopic Notes - Microscopic Notes - Abnormal cells 9p21 deletions: Abnormal cells aneploid events: Total cells analyzed: 200 Hematuria: Gross Description Site ID:A color Dark Yellow fixative Alcohol Received 100 mls of clear dark yellow fluid with the patient's name and, Urine on the vial. Electronically signed by : on: 03/30/2024 17:51:11 Performed By: #### 1 [id number] #### [facility] [address] [place] [address] Ambulatory Visit Summaryon 0 03-25-2024 Ambulatory Visit Summary Ambulatory Visit Summary SARAH MAGAÑA :1945 Visit Date:03/25/2024 Ambulatory Visit Instructions Your Diagnosis History of bladder cancer BPH with urinary obstruction Erectile dysfunction Your Care Team Attending Physician - Preethi LAFLEUR MD Primary Care Physician - Los JENKINS, Ron Perea This Is Your Medications List ciprofloxacin (Cipro 500 mg Tab) sildenafil (Viagra 100 mg Tab) tamsulosin (tamsulosin 0.4 mg Cap) Contact prescribing physician if questions or concerns Non-Formulary Medication (restore- eye supplement) atorvastatin (atorvastatin 20 mg Tab) docusate (Colace) enalapril (enalapril 10 mg Tab) hydrochlorothiazide metformin (metformin 500 mg oral tablet) omeprazole (Prilosec 40 mg Cap-EC) Procedures Performed Flexible cystoscopy (03/25/2024), Laparoscopic repair of inguinal hernia (07/01/2023), Cystoscopy (06/12/2023), Cystoscopy (11/14/2022), Cystoscopy (01/03/2022), Cystoscopy (08/09/2021), Cystoscopy (05/10/2021), Cystoscopy (01/18/2021), Repair of right inguinal hernia (10/27/2020), 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 (08/30/2020), Cystoscopy (06/22/2020), Cystoscopy (03/30/2020), Cystoscopy (01/06/2020), Cystoscope (08/18/2019), TURBT - Transurethral resection of bladder tumour (05/21/2019), Cystoscopy (12/30/2018), Cystoscopy to remove object (06/30/2018), Cystoscopy and transurethral resection of bladder tumour (06/19/2018), History of ureteral stent placement (06/19/2018), Cataract extraction and insertion of intraocular lens (08/12/2017), TURP - Transurethral resection of prostate (06/07/2016), Urodynamics (02/01/2016), Urodynamics (02/01/2016), Laser bladder lesion therapy (05/30/2010), Cystoscopy (07/20/2009), TURBT - Transurethral resection of bladder tumor (05/05/2009), ESWL of kidney (09/16/2008), Removal of ureteral stent (09/16/2003), Cataract. Discharge Vitals Temperature (Temporal Artery) 37 ?C Heart Rate (Peripheral) 76 Respiratory Rate 16 Blood Pressure 130/86 Height 182 cm Height 72 in Weight 96.9 kg Weight 213.18 lb BMI 29.25 What to do next You Need to Schedule the Following Appointments Follow Up with ODILON JENKINS, CHIDI [place] When: Where: [facility] [address], [place] [address]- Medications What How Much When Instructions Unchanged ciprofloxacin (Cipro 500 mg Tab) 1 Tablets By Mouth Every day Take 1 tablet the day before the procedure and 1 tablet after the procedure Unchanged sildenafil (Viagra 100 mg Tab) 1 Tablets By Mouth Every day 1 hour before sexual activity as needed Unchanged tamsulosin (tamsulosin 0.4 mg Cap) 1 Capsules By Mouth Every day Unchanged atorvastatin (atorvastatin 20 mg Tab) 1 Tablets By Mouth Every day Contact prescribing physician if questions or concerns Unchanged docusate (Colace) By Mouth 2 times a day Contact prescribing physician if questions or concerns Unchanged enalapril (enalapril 10 mg Tab) 1 Tablets By Mouth Every day Contact prescribing physician if questions or concerns Unchanged hydrochlorothiazide 12.5 Milligram By Mouth Every day Contact prescribing physician if questions or concerns Unchanged metformin (metformin 500 mg oral tablet) 1 Tablets By Mouth 2 times a day Contact prescribing physician if questions or concerns Unchanged Non-Formulary Medication (restore- eye supplement) 2 Tablets By Mouth Every day Contact prescribing physician if questions or concerns Unchanged omeprazole (Prilosec 40 mg Cap-EC) 40 Milligram By Mouth 2 times a day Contact prescribing physician if questions or concerns Medications and Immunizations Administered Given lidocaine Top 2% Gel w/Appl 11 mL, 11 mL, Topical. For: Allergies BCG (Fever) IVP - Intravenous pyelogram (hives, SOB - Shortness of breath) penicillin (Rash) Problems Ongoing - Any problem that you are currently receiving treatment for. Bladder cancer Bladder mass Bladder tumor BMI 28.0-28.9,adult BPH with urinary obstruction Chronic GERD Diabetes Elevated cholesterol Elevated PSA Erectile dysfunction Former smoker Hematuria, microscopic History of bladder cancer Hyperlipidemia Hypertension Impotence Kidney stone Overweight Personal history of bladder cancer Reducible left inguinal hernia Historical - Any problem that you are no longer receiving treatment for. Acid reflux Epididymitis Right inguinal hernia Patient Survey You may receive a survey via text or e-mail asking about your office visit. Please share your experience with us by completing your survey. We appreciate your feedback and thank you for choosing us for your care. Education Materials Cancer Screening for Men A cancer screening is a test or exam that checks for cancer. Your health care provider will recommend specific cancer screenings based on your age, medical history (including risk factors), and family history of cancer. Work with your health car (more content not included)... Normal [facility] UroVysion Fish and Urine Cyt o ( Labs)on 03-25-2024 [facility] Method of Extraction Bladder Urine Normal [facility] Comment on above: Performed By: #### 1 [id number] #### [facility] [address] [place] [address] [facility] Number of Jars 1 Invalid Interpretation Code [facility] Comment on above: Performed By: #### 1 [id number] #### [facility] [address] [place] [address] [facility] Specimen Urine Normal [facility] Comment on above: Performed By: #### 1 [id number] #### [facility] [address] [place] [address] [facility] Type of Service Technical Only Normal [facility] Comment on above: Performed By: #### 1 [id number] #### [facility] [address] [place] [address] Urology Office/Clinic Noteon 03-25-2024 Urology Office/Clinic Note Urology Office/Clinic Note Chief Complaint hx of bladder cancer HPI Staff Pt here for 9 mos cysto/FISH/cytol. Abx taken. S/p TURBT 06/20/23 - Noninvasive papillary urothelial carcinoma, low grade. Mitomycin 08/01/23 and 08/29/23. History of Present Illness Tests reviewed: reviewed I have reviewed the previous health record information and history for this patient from Dr. Lafleur. I have reviewed and verified the staff HPI to be accurate for this encounter. There have been no associated fever, chills, flank pain, or blood in the urine. Denies any urinary infections since last encounter. Review of Systems PHQ Score Initial Depression Screen Score: 0 SCORE ROS - Provider Constitutional: denies weight loss, denies hot flashes. Eyes: denies eye problems. Gastrointestinal: denies nausea, denies vomiting. Cardiovascular: denies chest pain or angina. Integumentary: no dryness Musculoskeletal: denies musculoskeletal symptoms. ENMT: denies otolaryngeal symptoms. Respiratory: no shortness of breath. Heme/Lymph: denies easy bleeding tendency, denies easy bruising tendency. Psychiatric: no confusion, no anxiety. Genitourinary: See HPI. Physical Exam Vitals & Measurements T: 37 ?C(Temporal Artery) HR: 76(Peripheral) RR: 16 BP: 130/86 HT: 72 in HT: 182 cm WT: 96.9 kg WT: 213.18 lb BMI: 29.25 General Appearance: alert, no distress, well nourished, well developed male. Genitourinary: normal scrotum, normal testes, normal urethra, normal epididymis, normal vas deferens/spermatic cord. Flank Pain: none. Bladder: nonpalpable. Procedure Operative Information Anesthesia Type: Local Procedure: Local Cystoscopy Complications: None Surgical risks, benefits, details of the procedure have been explained to the patient. Full informed consent has been obtained. Intraoperative Information Prepped: Patient is brought back to the endoscopy suite. Patient is placed in supine position. Patient prepped in the usual fashion with Betadine solution. 2% Xylocaine Jelly is placed per Urethra. After waiting several minutes, the Cystoscope is introduced. The Urethra is: Normal The Prostatic Urethra is: Bilobar regrowth. visual obstruction The Bladder: no tumors , diverticuli diffusly _, Trabeculated: Moderate (2) The Ureteral orifices: Show efflux of clear urine Specimens Removed: Voided specimen sent for FISH and Cytology test Removal: Cystoscope is removed. The patient tolerated it well. Postoperative Information Patient is discharged home with antibiotic coverage. Follow up arranged. Assessment/Plan 1. History of bladder cancer (Z85.51: Personal history of malignant neoplasm of bladder) We do not have the original path. First record of cysto in [place] was 03/23/09 for hx of bladder cancer. First TURBT in our records 05/05/09 - Papillary transitional cell carcinoma, grade 2, non-invasive. Evolve laser of bladder tumor 08/30/20 - Noninvasive papillary urothelial low grade carcinoma. Mitomycin txs 05/25/21 and 06/26/21. TURBT 08/31/21 - Low grade non-invasive papillary cancer. TURBT 05/03/22 - Noninvasive papillary urothelial carcinoma, low grade. Mitomycin 06/21/22 and 08/23/22. TURBT 06/20/23 - Noninvasive papillary urothelial carcinoma, low grade. Mitomycin 08/01/23 and 08/29/23. Pt had 8 mos IO cysto to check for bladder tumor recurrence without complications today. Pt took prophylactic abx prior to procedure. Will send voided specimen for FISH/cytol and call pt if positive. Follow up 6 mos surveillance cysto/bt ck/FISH/cytol or sooner if needed. Pt understands and agrees with plan. 2. BPH with urinary obstruction (N40.1: Benign prostatic hyperplasia with lower urinary tract symptoms) S/P TURP 06/07/16. 3. Erectile dysfunction (N52.9: Male erectile dysfunction, unspecified) Tri-mix and Cialis 20 mg prn. Follow-up With When Contact Information DOILON JENKINS, Preethi Arango, URL [facility] [address], [place] [address]- Additional Instructions: 6 mos surveillance cysto/bt ck/FISH/cytol Patient Education Cancer Screening for Men I, Sheryl Augustin, personally scribed for Dr. Lafleur on 03/25/2024 07:51:16. . Documentation recorded by the scribe, Vidhya Aly, accurately reflects the services(s) I performed and decisions made by me. Authenticated by Dr. Lafleur on 03/25/2024 08:04:11. Problem List/Past Medical History Ongoing Bladder cancer Bladder mass Bladder tumor BMI 28.0-28.9,adult BPH with urinary obstruction Chronic GERD Diabetes Elevated cholesterol Elevated PSA Erectile dysfunction Former smoker Hematuria, microscopic History of bladder cancer Hyperlipidemia Hypertension Impotence Kidney stone Overweight Personal history of bladder cancer Reducible left inguinal hernia Historical Acid reflux Epididymitis Right inguinal hernia Procedure/Surgical History Flexible cysto (more content not included)... Normal [facility] Comment on above: Result Comment: Elec tronically Signed By: Preethi LAFLEUR MD\.br\Date and Time Signed: 03/25/24 08:04 EDT\.br\Electronically Co-Signed By: Sheryl Augustin\.br\Date and Time Co-Signed: 03/25/24 08:03 EDT Laboratory - Hematology and Cell countson 01-30-2024 HbA1c (Bld) [Mass fraction] 6.9 % [facility] No Panel Informationon 01-29 Interpretation and review of laboratory results Normal [facility] CHEMISTRYOrdered By: Lab ROP User on 07-01-2023 Glucose [Mass/Vol] 182 mg/dL High 55 - 99 mg/dL [facility] POC Subsection Comment on above: Result Comment: Amy payton Meter POC Username [email or web address] [email or web address] Invalid Interpretation Code [facility] POC Subsection Sodium [Moles/Vol] [id number] mmol/L Invalid Interpretation Code [facility] POC Subsection Sodium [Moles/Vol] [id number] mmol/L Invalid Interpretation Code [facility] POC Subsection HEMATOLOGYOrdered By: Tavia Charles on 07-01-2023 Erythrocyte distribution width (RBC) [Ratio] 12.7 % Normal 10.9 - 14.2 % [facility] Hematocrit (Bld) [Volume fraction] 43.6 % Normal 37.7 - 49.0 % [facility] Hemoglobin (Bld) [Mass/Vol] 14.9 g/dL Normal 13.5 - 17.5 gm/dL [facility] MCH (RBC) [Entitic mass] 31.0 pg Normal 27.0 - 34.0 pg [facility]SS MCHC (RBC) [Mass/Vol] 34.2 g/dL Normal 31.4 - 36.0 gm/dL [facility] MCV (RBC) [Entitic vol] 90.8 fL Normal 80.0 - 100.0 fL [facility] Platelet mean volume (Bld) [Entitic vol] 8.6 fL Normal 6.4 - 10.8 fL [facility] Platelets (Bld) [#/Vol] 211.0 E9/L Normal 150.0 - 500.0 E9/L [facility] RBC (Bld) [#/Vol] 4.8 E12/L Normal 4.3 - 5.9 E12/L [facility] WBC corrected for nucl RBC Auto (Bld) [#/Vol] 8.3 E9/L Normal 4.0 - 11.0 E9/L [facility] POINT OF CARE GLUCOSEon 04-16 Glucose [Mass/Vol] 142 mg/dL Critically high 74-106 [facility] [facility] Comment on above: Performed By: #### P OCGLUC #### [facility] [address] [place], [place] [address] Dr. Michael Scott CBC AUTO DIFFon 04-27-2022 BASO # 0.1 103/ul Normal 0.0-0.1 [facility] Comment on above: Performed By: #### C BC ####[facility] [address] [place] [id number] Scott Basophils/100 WBC (Bld) 1.0 % Normal 0.2-2.0 [facility] Comment on above: Performed By: #### C BC ####[facility] Xvzncqdteq60[address] [place] [id number] Scott EO # 0.2 103/ul Normal 0.0-0.7 [facility] Comment on above: Performed By: #### C BC ####[facility] Lmzituejui38[address] [place] [id number]. Michael Scott Eosinophils/100 WBC (Bld) 2.1 % Normal 0.9-7.0 [facility] Comment on above: Performed By: #### C BC ####[facility] Gdialsdubo8[address] [place] [id number] Scott Erythrocyte distribution width (RBC) [Ratio] 12.0 % Normal 11.0-15.0 [facility] Comment on above: Performed By: #### C BC ####[facility] Gjhbproeyk6[address] [place] [id number] Scott Hematocrit (Bld) [Volume fraction] 46.9 % Normal 42.0-54.0 [facility] Comment on above: Performed By: #### C BC ####[facility] Wbyqwidffu2571 [place] [id number]. Michael Scott Hemoglobin (Bld) [Mass/Vol] 15.3 g/dL Normal 14.0-18.0 [facility] Comment on above: Performed By: #### C BC ####[facility] Ljmgehlpyd9[address] [place] [phone]. Michael Scott IG # 0.01 10e3/ul Normal 0.00-0.03 [facility] Comment on above: Performed By: #### C BC ####[facility] [address]yrbzbvt[address] [place] [address]Dr. Michael Scott IG % 0.1 % Normal 0.0-0.5 [facility] Comment on above: Performed By: #### C BC ####[facility] Sz[address]yretal[address] [place] [address]Dr. Michael Scott LYMPH # 2.8 103/ul Normal 1.2-3.8 [facility] Comment on above: Performed By: #### C BC ####[facility] Oxlxbtxbxr[address] [place] [address]Dr. Michael Scott Lymphocytes/100 WBC (Bld) 36.4 % Normal 20.5-60.0 [facility] Comment on above: Performed By: #### C BC ####[facility] Llwvfaahmf[address] [place] [address]Dr. Michael Scott MANUAL DIFF REQ NO Normal [facility] Comment on above: Performed By: #### C BC ####[facility] [address] [place], [place] [address]Dr. Michael Scott MCH (RBC) [Entitic mass] 30.8 pg Normal 25.9-34.0 [facility] Comment on above: Performed By: #### C BC ####[facility] [address]dh[address] [place], [place] [address]Dr. Michael Scott MCHC (RBC) [Mass/Vol] 32.6 g/dL Normal 29.9-35.2 [facility] Comment on above: Performed By: #### C BC ####[facility] Wyfjchreqa4[address] [place] [phone]. Michael Scott MCV (RBC) [Entitic vol] 94.4 fL Critically high 80.0-94.0 [facility] Comment on above: Performed By: #### C BC ####[facility] Hnqssxvhyk58[address] [place] [phone]. Michael Scott MONO # 0.6 103/ul Normal 0.3-0.8 [facility] Comment on above: Performed By: #### C BC ####[facility] Lmnyssifdq3556 [place] [phone]. Michael Scott Monocytes/100 WBC (Bld) 8.2 % Normal 1.7-12.0 [facility] Comment on above: Performed By: #### C BC ####[facility] Fwlqrdrkcd[address] [place], [place] [address]Dr. Michael Scott NEUT # 4.0 103/ul Normal 1.4-6.5 [facility] Comment on above: Performed By: #### C BC ####[facility] Xiapcjizss[address] [place], [place] [id number]. Michael Scott Neutrophils/100 WBC (Bld) 52.2 % Normal 43.0-75.0 [facility] Comment on above: Performed By: #### C BC ####[facility] Vbateumq[address] [place], [place] [address]Dr. Michael Scott Platelet mean volume (Bld) [Entitic vol] 10.4 fL Normal 9.5-13.5 [facility] Comment on above: Performed By: #### C BC ####[facility] Lvruuvsiar[address] [place] [phone]. Michael Scott PLT 194 103/ul Normal 150-450 [facility] Comment on above: Performed By: #### C BC ####[facility] Vhgzud[address] [place], [place] [address]Dr. Michael Tyler RBC 4.97 106/ul Normal 4.70-6.10 [facility] Comment on above: Performed By: #### C BC ####[facility] [address] [place] [phone]. Michael Scott WBC 7.7 103/ul Normal 4.0-11.0 [facility] Comment on above: Performed By: #### C BC ####[facility] Sy[address]ltfqdl32[address] [place] [phone]. Michael Scott Covid-19 PCR (CVDTB)on 04-16 SARS-CoV-2 (COVID-19) RNA JOHNATHON+probe Ql (Unsp spec) Not detected Normal NOT DETECTED [facility] Comment on above: Result Comment: This test is not yet approved or cleared by the [place] FDA. When there are no FDA-approved or cleared tests available, and other criteria are met, FDA can make tests available under an emergency access mechanism called an Emergency Use Authorization (EUA). The EUA for this test is supported by the [place] of Health and Human Service's (HHS's) declaration that circumstances exist to justify the emergency use of in vitro diagnostics for the detection and/or diagnosis of the virus that causes COVID-19. This EUA will remain in effect (meaning this test can be used) for the duration of the COVID-19 declaration justifying emergency of IVDs, unless it is terminated or revoked by FDA (after which the test may no longer be used). When diagnostic testing is negative, the possibility of a false negative should be considered in the context of a patient's recent exposures and the presence of clinical signs and symptoms consistent with SARS-CoV-2. Performed By: #### C VDTBH #### [facility] [address] [place] [address] Dr. Michael Scott PROF CHEM 8 (BAS METB)on Anion gap [Moles/Vol] 12.8 mmol/L Normal [facility] Comment on above: Performed By: #### B MP #### [facility] [address] [place], [place] [id number] Dr. Michael Scott Calcium [Mass/Vol] 9.1 mg/dL Normal 8.5-10.1 [facility] Comment on above: Performed By: #### B MP #### [facility] [address] [place] [address] Dr. Michael Scott Chloride [Moles/Vol] 100 mmol/L Normal 98-107 [facility] Comment on above: Performed By: #### B MP #### [facility] [address] [place] [address] [address] Michael Scott CO2 [Moles/Vol] 30.2 mmol/L Normal 21.0-32.0 [facility] Comment on above: Performed By: #### B MP #### [facility] [address] [place] [address] [address] Michael Scott Creatinine [Mass/Vol] 1.18 mg/dL Normal 0.70-1.30 [facility] Comment on above: Performed By: #### B MP #### [facility] [address] [place] [address] Dr. Michael Scott EGFR-AF HUNGARIAN >60 Normal >=60 [facility] Comment on above: Performed By: #### B MP #### [facility] [address] [place] [address] Dr. Michael Scott EGFR-NON AF HUNGARIAN 60 mL/min/1.73m2 Normal >=60 [facility] Comment on above: Performed By: #### B MP #### [facility] [address] [place] [address] [address] Michael Scott Glucose [Mass/Vol] 173 mg/dL Critically high 74-106 [facility] Comment on above: Performed By: #### B MP #### [facility] [address] [place] [address] Dr. Michael Scott Potassium [Moles/Vol] 5.0 mmol/L Normal 3.5-5.1 [facility] Comment on above: Performed By: #### B MP #### [facility] [address] [place] [address] [address] Michael Scott Sodium [Moles/Vol] 138 mmol/L Normal 136-145 [facility] Comment on above: Performed By: #### B MP #### [facility] [address] [place] [address] [address] Michael Scott Urea nitrogen [Mass/Vol] 16.0 mg/dL Normal 7.0-18.0 [facility] Comment on above: Performed By: #### B MP #### [facility] [address] [place] [address] Dr. Michael Soctt Urea nitrogen/Creatinine [Mass ratio] 13.6 mg/mg Normal [facility] Comment on above: Performed By: #### B MP #### [facility] [address] [place] [address] Dr. Michael Scott PROTIMEon 04-27-2022 INR Coag (PPP) [Relative time] 1.06 {INR} Normal [facility] Comment on above: Performed By: #### P T, PTT #### [facility] [address] [place] [address] Dr. Michael Scott INR GUIDELINES SEE BELOW Normal [facility] Comment on above: Result Comment: ELENA RED INR: 2.0 - 3.0 CONDITIONS NOT LISTED BELOW 2.5 - 3.5 FOR PROSTHETIC HEART VALVE REPLACEMENT 2.5 - 3.5 RECURRENT THROMBOSIS Performed By: #### P T, PTT #### [facility] [address] [place] [address] Dr. Michael Scott PT Coag (PPP) [Time] 11.4 s Normal 9.0-11.6 [facility] Comment on above: Performed By: #### P T, PTT #### [facility] [address] [place] [address] Dr. Michael Scott PTTon 04-27-2022 aPTT Coag (Bld) [Time] 25.0 s Normal 22.3-36.2 [facility] Comment on above: Performed By: #### P T, PTT #### [facility] [address] [place] [address] Dr. Michael Scott CHEMISTRYOrdered By: Lab ROP User on 01-25-2022 Glucose [Mass/Vol] 131 mg/dL High 55 - 99 mg/dL [facility] POC Subsection Comment on above: Result Comment: Amy payton Meter POC Device SN [id number] Invalid Interpretation Code [facility] POC Subsection POC User ID [id number] Invalid Interpretation Code [facility] POC Subsection POC Username DEVYN LARIOS Invalid Interpretation Code [facility] POC Subsection Glucose [Mass/Vol] 106 mg/dL High 55 - 99 mg/dL [facility] POC Subsection Comment on above: Result Comment: Bryce colmenares RN/ POC Device SN [id number] Invalid Interpretation Code [facility] POC Subsection POC User ID [id number] Invalid Interpretation Code [facility] POC Subsection POC Username PIPPA LUGO Invalid Interpretation Code [facility] POC Subsection Glucose [Mass/Vol] 129 mg/dL High 55 - 99 mg/dL [facility] POC Subsection Comment on above: Result Comment: Bryce colmenares RN/ POC Device SN [id number] Invalid Interpretation Code [facility] POC Subsection POC User ID [id number] Invalid Interpretation Code [facility] POC Subsection POC Username DEVYN LARIOS Invalid Interpretation Code [facility] POC Subsection CHEMISTRYOrdered By: SYSTEM SYSTEM on 01-25-2022 Cholesterol [Mass/Vol] 165 mg/dL Normal 120 - 200 mg/dL [facility] Cholesterol in HDL [Mass/Vol] 34 mg/dL Invalid Interpretation Code [facility] Cholesterol in LDL [Mass/Vol] 100 mg/dL Normal <=129mg/dL [facility] Cholesterol in VLDL [Mass/Vol] 32 mg/dL Normal 7 - 40 mg/dL [facility] Triglyceride [Mass/Vol] 160 mg/dL High <=149mg/dL [facility] Troponin I.cardiac [Mass/Vol] 8.00 pg/mL Low 15.90 - 38.40 pg/mL [facility] CHEMISTRYOrdered By: Janis ross on 01-25-2022 HbA1c (Bld) [Mass fraction] 8.0 % High <=5.9% [facility] ChemAutoSS CHEMISTRYOrdered By: Xcalia SYSTEM on 01-24-2022 Troponin I.cardiac [Mass/Vol] 7.60 pg/mL Low 15.90 - 38.40 pg/mL [facility] Troponin I.cardiac [Mass/Vol] 7.40 pg/mL Low 15.90 - 38.40 pg/mL [facility] Anion gap [Moles/Vol] 14 mmol/L Normal 6 - 16 mEq/L F [facility] Calcium [Mass/Vol] 9.3 mg/dL Normal 8.9 - 11. 1 mg/dL [facility] Chloride [Moles/Vol] 99 mmol/L Low 101 - 1 11 mmol/L [facility] CO2 [Moles/Vol] 26 mmol/L Normal 21 - 31 mmol/L [facility] Creatinine [Mass/Vol] 1.1 mg/dL Normal 0.5 - 1.3 mg/dL [facility] GFR/1.73 sq M.predicted among blacks MDRD (S/P/Bld) [Vol rate/Area] mL/min/1.73 m2 Normal >=59mL/min/1 .73 m2 [facility] Chem S GFR/1.73 sq M.predicted among non-blacks MDRD (S/P/Bld) [Vol rate/Area] mL/min/1.73 m2 Normal >=59mL/min/1 .73 m2 FT Chem S Glucose [Mass/Vol] 130 mg/dL Normal 55 - 199 mg/dL [facility] Potassium [Moles/Vol] 4.1 mmol/L Normal 3.5 - 5.3 mmol/L [facility] Sodium [Moles/Vol] 135 mmol/L Normal 135 - 145 mmol/L [facility] Urea nitrogen [Mass/Vol] 21 mg/dL Normal 5 - 21 mg/dL [facility] Urea nitrogen/Creatinine [Mass ratio] 19 mg/mg Normal 10 - 20 [facility] COAGULATIONOrdered By: River Wahl on 01-24-2022 aPTT Coag (PPP) [Time] 23.5 s Low 25.1 - 36.5 second(s) [facility] Auto Coag INR Coag (PPP) [Relative time] 1.0 {INR} Invalid Interpretation Code [facility] Auto Coag PT Coag (PPP) [Time] 12.4 s Normal 10.2 - 12.9 second(s) [facility] Auto Coag HEMATOLOGYOrdered By: SYSTEM SYSTEM on 01-24-2022 Basophils/100 WBC (Bld) 0.6 % Normal 0.0 - 2.0 % [facility] HemeAutoSS Basophils/Leukocytes Auto (Bld) [Pure # fraction] 0.0 E9/L Normal 0.0 - 0.2 E9/L [facility] HemeAutoSS Eosinophils/100 WBC (Bld) 2.0 % Normal 0.0 - 8.0 % [facility] HemeAutoSS Eosinophils/Leukocyte s Auto (Bld) [Pure # fraction] 0.2 E9/L Normal 0.0 - 0.5 E9/L [facility] HemeAutoSS Lymphocytes/100 WBC (Bld) 37.8 % Normal 14.0 - 50.0 % [facility] HemeAutoSS Lymphocytes/Leukocyte s Auto (Bld) [Pure # fraction] 2.9 E9/L Normal 1.0 - 4.0 E9/L [facility] HemeAutoSS Monocytes/100 WBC (Bld) 9.2 % Normal 4.0 - 14.0 % [facility] HemeAutoSS Monocytes/Leukocytes Auto (Bld) [Pure # fraction] 0.7 E9/L Normal 0.2 - 1.0 E9/L [facility] HemeAutoSS Neutrophils/100 WBC (Bld) 50.4 % Normal 36.0 - 75.0 % [facility] HemeAutoSS Neutrophils/Leukocyte s Auto (Bld) [Pure # fraction] 3.9 E9/L Normal 2.0 - 7.5 E9/L [facility] HemeAutoSS HEMATOLOGYOrdered By: Janis Lindsey on 01-24-2022 Erythrocyte distribution width (RBC) [Ratio] 12.8 % Normal 10.9 - 14.2 % [facility] HemeAutoSS Hematocrit (Bld) [Volume fraction] 43.7 % Normal 37.7 - 49.0 % [facility] HemeAutoSS Hemoglobin (Bld) [Mass/Vol] 15.0 g/dL Normal 13.5 - 17.5 gm/dL [facility] HemeAutoSS MCH (RBC) [Entitic mass] 31.5 pg Normal 27.0 - 34.0 pg [facility] HemeAutoSS MCHC (RBC) [Mass/Vol] 34.4 g/dL Normal 31.4 - 36.0 gm/dL [facility] HemeAutoSS MCV (RBC) [Entitic vol] 91.7 fL Normal 80.0 - 100.0 fL [facility] HemeAutoSS Platelet mean volume (Bld) [Entitic vol] 8.7 fL Normal 6.4 - 10.8 fL [facility] HemeAutoSS Platelets (Bld) [#/Vol] 215.0 E9/L Normal 150.0 - 500.0 E9/L [facility] HemeAutoSS RBC (Bld) [#/Vol] 4.8 E12/L Normal 4.3 - 5.9 E12/L [facility] HemeAutoSS WBC corrected for nucl RBC Auto (Bld) [#/Vol] 7.8 E9/L Normal 4.0 - 11.0 E9/L [facility] HemeAutoSS URINALYSISOrdered By: River valentine on 01-24-2022 Bilirubin Ql (U) Negative (01/24/22 6:50 PM) Normal Negative [facility] UA Auto SS Clarity (U) Clear (01/24/22 6:50 PM) Normal Clear [facility] UA Auto SS Color (U) Yellow (01/24/22 6:50 PM) Normal Yellow [facility] UA Auto SS Crystals LM Ql (Urine sed) Present (01/24/22 6:50 PM) Normal [facility] UA Auto SS Epithelial cells.squamous LM.HPF (Urine sed) [#/Area] 0-2 /HPF Normal 0-2/HPF [facility] UA Aut o SS Glucose Test strip (U) [Mass/Vol] Negative (01/24/22 6:50 PM) Normal Negative [facility] UA Auto SS Hemoglobin Ql (U) Negative (01/24/22 6:50 PM) Normal Negative [facility] UA Auto SS Ketones (U) [Mass/Vol] 1+ *ABN* (01/24/22 6:50 PM) Invalid Interpretation Code Negative [facility] UA Auto SS [place].plasma/Lithiu m.RBC (Bld) [Mass ratio] 0-3 /HPF Normal 0-3/HPF [facility] UA Auto SS Nitrite Ql (U) Negative (01/24/22 6:50 PM) Normal Negative [facility] UA Auto SS pH (U) 5.5 *NA* (01/24/22 6:50 PM) Invalid Interpretation Code 5.0 - 9.0 [facility] UA Auto SS Protein (U) [Mass/Vol] Trace *ABN* (01/24/22 6:50 PM) Invalid Interpretation Code Negative [facility] UA Auto SS Specific gravity (U) [Rel density] 1.020 *NA* (01/24/22 6:50 PM) Invalid Interpretation Code 1.005 - 1.030 [facility] UA Auto SS UA Spec Desc Clean Catch (01/24/22 6:50 PM) Normal [facility] UA Auto SS Urobilinogen Qn (U) [id number] {Davide'U}/dL Normal 0.0 - 1.0 EU/dL [facility] UA Auto SS WBC Auto Ql (U) Negative (01/24/22 6:50 PM) Normal Negative [facility] UA Auto SS WBC LM.HPF (Urine sed) [#/Area] 0-5 /HPF Normal 0-5/HPF [facility] UA Auto SS CBC AUTO DIFFon 01-16-2022 BASO # 0.1 103/ul Normal 0.0-0.1 [facility] Comment on above: Performed By: #### C BC ####[facility] [address] [place] [address]Dr. Michael Scott Basophils/100 WBC (Bld) 0.7 % Normal 0.2-2.0 [facility] Comment on above: Performed By: #### C BC ####[facility] [address] [place], [place] [address]Dr. Michael Scott EO # 0.2 103/ul Normal 0.0-0.7 [facility] Comment on above: Performed By: #### C BC ####[facility] [address]fc[address] [place], [place] [address]Dr. Michael Scott Eosinophils/100 WBC (Bld) 1.8 % Normal 0.9-7.0 [facility] Comment on above: Performed By: #### C BC ####[facility] [address] [place], [place] [address]Dr. Michael Scott Erythrocyte distribution width (RBC) [Ratio] 12.2 % Normal 11.0-15.0 [facility] Comment on above: Performed By: #### C BC ####[facility] [address]ome[address] [place], [place] [address]Dr. Michael Scott Hematocrit (Bld) [Volume fraction] 45.8 % Normal 42.0-54.0 [facility] Comment on above: Performed By: #### C BC ####[facility] [address] [place], [place] [address]Dr. Michael Scott Hemoglobin (Bld) [Mass/Vol] 14.9 g/dL Normal 14.0-18.0 [facility] Comment on above: Performed By: #### C BC ####[facility] Q[address] [place], [place] [address]Dr. Michael Scott IG # 0.02 10e3/ul Normal 0.00-0.03 [facility] Comment on above: Performed By: #### C BC ####[facility] [address]ocirm[address] [place] [address]Dr. Michael Scott IG % 0.2 % Normal 0.0-0.5 [facility] Comment on above: Performed By: #### C BC ####[facility] [address] [place] [address]Dr. Michael Tyler LYMPH # 2.9 103/ul Normal 1.2-3.8 [facility] Comment on above: Performed By: #### C BC ####[facility] R[address]jcxhn[address] [place] [address]DrKristine Michael Tyler Lymphocytes/100 WBC (Bld) 34.2 % Normal 20.5-60.0 [facility] Comment on above: Performed By: #### C BC ####[facility] Us[address] [place], [place] [address]Dr. Michael Tyler MANUAL DIFF REQ NO Normal [facility] Comment on above: Performed By: #### C BC ####[facility] [address]vx[address] [place] [address]Dr. Michael Tyler MCH (RBC) [Entitic mass] 31.0 pg Normal 25.9-34.0 [facility] Comment on above: Performed By: #### C BC ####[facility] [address] [place] [address]Dr. Michael Tyler MCHC (RBC) [Mass/Vol] 32.5 g/dL Normal 29.9-35.2 [facility] Comment on above: Performed By: #### C BC ####[facility] [address]okkout[address] [place] [address]DrKristine Michael Tyler MCV (RBC) [Entitic vol] 95.2 fL Critically high 80.0-94.0 [facility] Comment on above: Performed By: #### C BC ####[facility] [address] [place], [place] [address]Dr. Michael Scott MONO # 0.5 103/ul Normal 0.3-0.8 [facility] Comment on above: Performed By: #### C BC ####[facility] [address] [place] [address]Dr. Michael Scott Monocytes/100 WBC (Bld) 6.1 % Normal 1.7-12.0 [facility] Comment on above: Performed By: #### C BC ####[facility] [address] [place] [address]Dr. Michael Scott NEUT # 4.9 103/ul Normal 1.4-6.5 [facility] Comment on above: Performed By: #### C BC ####[facility] [address] [place] [address]Dr. Michael Scott Neutrophils/100 WBC (Bld) 57.0 % Normal 43.0-75.0 [facility] Comment on above: Performed By: #### C BC ####[facility] [address] [place], [place] [address]Dr. Michael Scott Platelet mean volume (Bld) [Entitic vol] 10.3 fL Normal 9.5-13.5 [facility] Comment on above: Performed By: #### C BC ####[facility] [address] [place], [place] [address]Dr. Michael Scott PLT 211 103/ul Normal 150-450 [facility] Comment on above: Performed By: #### C BC ####[facility] [address] [place], [place] [address]Dr. Michael Scott RBC 4.81 106/ul Normal 4.70-6.10 [facility] Comment on above: Performed By: #### C BC ####[facility] [address] [place], [place] [address]Dr. Michael Scott WBC 8.6 103/ul Normal 4.0-11.0 [facility] Comment on above: Performed By: #### C BC ####[facility] [address] [place], [place] [address]Dr. Lettytory Scott PROF CHEM 8 (BAS METB)on Anion gap [Moles/Vol] 11.5 mmol/L Normal [facility] Comment on above: Performed By: #### B MP #### [facility] [address] [place] [address] Dr. Michael Scott Calcium [Mass/Vol] 8.4 mg/dL Critically low 8.5-10.1 [facility] Comment on above: Performed By: #### B MP #### [facility] [address] [place] [address] Dr. Michael Scott Chloride [Moles/Vol] 103 mmol/L Normal 98-107 [facility] Comment on above: Performed By: #### B MP #### [facility] [address] [place] [address] Dr. Michael Scott CO2 [Moles/Vol] 29.0 mmol/L Normal 21.0-32.0 [facility] Comment on above: Performed By: #### B MP #### [facility] [address] [place] [address] Dr. Michael Scott Creatinine [Mass/Vol] 0.98 mg/dL Normal 0.70-1.30 [facility] Comment on above: Performed By: #### B MP #### [facility] [address] [place] [address] Dr. Michael Scott EGFR-AF HUNGARIAN >60 Normal >=60 [facility] Comment on above: Performed By: #### B MP #### [facility] [address] [place] [address] Dr. Michael Scott EGFR-NON AF HUNGARIAN >60 Normal >=60 [facility] Comment on above: Performed By: #### B MP #### [facility] [address] [place] [address] Dr. Michael Scott Glucose [Mass/Vol] 122 mg/dL Critically high 74-106 [facility] Comment on above: Performed By: #### B MP #### [facility] [address] [place] [address] Dr. Michael Scott Potassium [Moles/Vol] 4.5 mmol/L Normal 3.5-5.1 [facility] Comment on above: Performed By: #### B MP #### [facility] [address] [place] [address] Dr. Michael Scott Sodium [Moles/Vol] 139 mmol/L Normal 136-145 [facility] Comment on above: Performed By: #### B MP #### [facility] [address] [place] [address] Dr. Michael Scott Urea nitrogen [Mass/Vol] 15.0 mg/dL Normal 7.0-18.0 [facility] Comment on above: Performed By: #### B MP #### [facility] [address] [place] [address] Dr. Michael Scott Urea nitrogen/Creatinine [Mass ratio] 15.3 mg/mg Normal [facility] Comment on above: Performed By: #### B MP #### [facility] [address] [place] [address] Dr. Michael Scott PROTIMEon 01-16-2022 INR Coag (PPP) [Relative time] 1.08 {INR} Normal [facility] Comment on above: Performed By: #### P TT, PT #### [facility] [address] [place] [address] Dr. Michael Scott INR GUIDELINES SEE BELOW Normal [facility] Comment on above: Result Comment: ELENA RED INR: 2.0 - 3.0 CONDITIONS NOT LISTED BELOW 2.5 - 3.5 FOR PROSTHETIC HEART VALVE REPLACEMENT 2.5 - 3.5 RECURRENT THROMBOSIS Performed By: #### P TT, PT #### [facility] [address] [place] [address] Dr. Michael Scott PT Coag (PPP) [Time] 11.6 s Normal 9.0-11.6 [facility] Comment on above: Performed By: #### P TT, PT #### [facility] [address] [place] [address] Dr. Michael Scott PTTon 01-16-2022 aPTT Coag (Bld) [Time] 24.7 s Normal 22.3-36.2 [facility] Comment on above: Performed By: #### P TT, PT #### [facility] [address] [place], [place] [address] Dr. Michael Scott XR CHEST 2 Von 01-16-2022 XR CHEST 2 V EXAM: XR CHEST 2 V EXAM: XR CHEST 2 V INDICATION: 76 years old Male Pre-surgery evaluation COMPARISON: May 202018 FINDINGS: The cardiac silhouette is normal. There is no pulmonary edema. The lungs are clear. There is no pneumonia. There is no pneumothorax. There is no abnormal foreign body. IMPRESSION: There is no acute abnormality. Electronically authenticated by: FANNIE PACE Date: 2022-01-16 12:22 Normal [facility] POINT OF CARE GLUCOSEon 12- Glucose [Mass/Vol] 154 mg/dL Critically high 74-106 T he [facility] Comment on above: Performed By: #### P OCGLUC #### [facility] [address] [place] [id number] Michael Scott Bladder Cancer FISHon 2020 Specimen Type: Normal [facility] Comment on above: Result Comment: See report. Scanned copy available in EMR. PERFORMED BY: [facility] [address] [place] [id number] PATHOLOGIST FL[employer] CARRIER GAGE NAVARRETE M.D. Performed By: #### F MONICA BLADD #### [facility] , [facility] 08-09-2021 L -- ---- Specimen: [id number] Received: 08/11/21 Status: JYOTI Rodriguez Num: [id number] Spec Type: Cytology Subm Dr: Preethi Lafleur MD Tissues: A URINECYTO (BLADDER WASH URINE) Procedures: Pap Stain, Cyto Prepstain ---- Patient Age/Sex Location Account Attending Physician ---- Sarah Magaña /[facility] [id number] Preethi Lafleur MD ---- SPEC NUM: [id number] RECD: 08/11/21 STATUS: JYOTI RODRIGUEZ NUM: [id number] SONYA: 08/09/21 DR: Preethi Lafleur MD ENTERED: 08/11/21 [facility] DR: KANU TYPE: Cytology DEPT: CN ENTERED BY: [id number] RECV BY: [id number] ORDERED: Pap Stain, Cyto Prepstain ORDERED: Pap Stain, Cyto Prepstain Pathological Diagnosis Urine, ThinPrep cytology: - No evidence of high-grade urothelial carcinoma identified. - Specimen consists of benign urothelial cells singly and few macrophages. Clinical Information Bladder cancer; urine - bladder wash Gross Description Received is 35 ml of yellow to brown, clear, watery unfixed fluid said to have been obtained as urine - bladder wash. ThinPrep is prepared for microscopic examination. (TERENCE/jeanne) Microscopic Description One Papanicolaou stained thin prep slide has been examined. The microscopic findings support the above diagnosis. CPT Codes 72729 ---- ---- Specimen: [id number] Received: 08/11/21 Status: JYOTI Rodriguez Num: [id number] Spec Type: Cytology Subm Dr: Preethi Lafleur MD Tissues: A URINECYTO (BLADDER WASH URINE) Procedures: Pap Stain, Cyto Prepstain ---- Patient: Sarha Magaña [id number] (Continued) ---- Signed (signature on file) Jil Grewal MD 08/11/21 1527 [facility] Vital Signs Date Time Vital Sign Value Performing Clinician Facility 10-06-2024 09:02-0500 Body height 182.9 cm Ron Mcnamara MD Work Phone: [facility] 10-06-2024 09:02-0500 Body mass index (BMI) [Ratio] 28.26 kg/m2 Ron Mcnamara MD Work Phone: [facility] 10-06-2024 09:02-0500 Body temperature 97.81 [degF] Ron Mcnamara MD Work Phone: [facility] 10-06-2024 09:02-0500 Body weight 94.53 kg Ron Mcnamara MD Work Phone: [facility] 10-06-2024 09:02-0500 Diastolic blood pressure 72 mm[Hg] Ron Mcnamara MD Work Phone: [facility] 10-06-2024 09:02-0500 Heart rate 55 /min Ron Mcnamara MD Work Phone: [facility] 10-06-2024 09:02-0500 SaO2% (BldA) [Mass fraction] 95 % Ron Mcnamara MD Work Phone: [facility] 10-06-2024 09:02-0500 Systolic blood pressure 126 mm[Hg] Ron Mcnamara MD Work Phone: [facility] 08-25-2024 15:26-0500 Body height 182.9 cm Ron Mcnamara MD Work Phone: [facility] 08-25-2024 15:26-0500 Body mass index (BMI) [Ratio] 29.43 kg/m2 Ron Mcnamara MD Work Phone: [facility] 08-25-2024 15:26-0500 Body temperature 98.6 [degF] Ron Mcnamara MD Work Phone: [facility] 08-25-2024 15:26-0500 Body weight 98.43 kg Ron Mcnamara MD Work Phone: [facility] 08-25-2024 15:26-0500 Diastolic blood pressure 76 mm[Hg] Ron Mcnamara MD Work Phone: [facility] 08-25-2024 15:26-0500 Heart rate 81 /min Ron Mcnamara MD Work Phone: [facility] 08-25-2024 15:26-0500 SaO2% (BldA) [Mass fraction] 97 % Ron Mcnamara MD Work Phone: [facility] 08-25-2024 15:26-0500 Systolic blood pressure 138 mm[Hg] Ron Mcnamara MD Work Phone: [facility] 03-25-2024 07:32-0400 Blood Pressure Location Preethi LAFLEUR [facility] 03-25-2024 07:32-0400 Body temperature 98.6 [degF] Preethi LAFLEUR [facility] 03-25-2024 07:32-0400 Diastolic blood pressure 86 mm[Hg] Preethi LAFLEUR [facility] 03-25-2024 07:32-0400 Heart rate 76 /min Preethi LAFLEUR [facility] 03-25-2024 07:32-0400 Respiratory rate 16 /min Preethi LAFLEUR [facility] 03-25-2024 07:32-0400 Systolic blood pressure 130 mm[Hg] Preethi LAFLEUR [facility] 01-30-2024 08:48-0400 Body height 182.9 cm Ron Mcnamara MD Work Phone: [facility] 01-30-2024 08:48-0400 Body mass index (BMI) [Ratio] 28.07 kg/m2 Ron Mcnamara MD Work Phone: [facility] 01-30-2024 08:48-0400 Body temperature 97.7 [degF] Ron Mcnamara MD Work Phone: [facility] 01-30-2024 08:48-0400 Body weight 93.89 kg Ron Mcnamara MD Work Phone: [facility] 01-30-2024 08:48-0400 Diastolic blood pressure 70 mm[Hg] Ron Mcnamara MD Work Phone: [facility] 01-30-2024 08:48-0400 Heart rate 78 /min Ron Mcnamara MD Work Phone: [facility] 01-30-2024 08:48-0400 SaO2% (BldA) [Mass fraction] 97 % Ron Mcnamara MD Work Phone: [facility] 01-30-2024 08:48-0400 Systolic blood pressure 122 mm[Hg] Ron Mcnamara MD Work Phone: [facility] 07-01-2023 14:20-0400 Body temperature 97.88 [degF] Venkata NILL [facility] 07-01-2023 14:20-0400 Diastolic blood pressure 75 mm[Hg] Venkata NILL [facility] 07-01-2023 14:20-0400 Heart rate 72 /min Venkata NILL [facility] 07-01-2023 14:20-0400 Respiratory rate 16 /min Venkata NILL [facility] 07-01-2023 14:20-0400 SaO2% (BldA) [Mass fraction] 97 % Venkata NILL [facility] 07-01-2023 14:20-0400 Systolic blood pressure 160 mm[Hg] Venkata NILL [facility] 07-01-2023 14:18-0400 Heart rate 59 /min Venkata NILL [facility] 07-01-2023 14:18-0400 SaO2% (BldA) [Mass fraction] 96 % Venkata NILL [facility] 07-01-2023 14:17-0400 Diastolic blood pressure 82 mm[Hg] Venkata NILL [facility] 07-01-2023 14:17-0400 Mean blood pressure 111 mm[Hg] Venkata NILL [facility] 07-01-2023 14:17-0400 Systolic blood pressure 171 mm[Hg] Venkata NILL [facility] 07-01-2023 13:16-0400 Heart rate 74 /min Venkata NILL [facility] 07-01-2023 13:16-0400 SaO2% (BldA) [Mass fraction] 94 % Venkata NILL [facility] 07-01-2023 13:15-0400 Diastolic blood pressure 73 mm[Hg] Venkata NILL [facility] 07-01-2023 13:15-0400 Mean blood pressure 99 mm[Hg] Venkata NILL [facility] 07-01-2023 13:15-0400 Systolic blood pressure 150 mm[Hg] Venkata NILL [facility] 07-01-2023 13:14-0400 Respiratory rate 16 /min Venkata NILL [facility] 07-01-2023 13:05-0400 Blood Pressure Location Venkata NILL [facility] 07-01-2023 13:05-0400 Body temperature 97.88 [degF] Venkata NILL [facility] 07-01-2023 13:05-0400 Mean blood pressure 98 mm[Hg] Venkata NILL [facility] 07-01-2023 13:05-0400 Respiratory rate 12 /min Venkata NILL [facility] 07-01-2023 12:55-0400 Blood Pressure Location Venkata NILL [facility] 07-01-2023 12:55-0400 Mean blood pressure 91 mm[Hg] Venkata NILL [facility] 07-01-2023 12:55-0400 Respiratory rate 10 /min Venkata NILL [facility] 07-01-2023 12:50-0400 Blood Pressure Location Venkata NILL [facility] 07-01-2023 12:50-0400 Mean blood pressure 97 mm[Hg] Venkata NILL [facility] 07-01-2023 12:50-0400 Respiratory rate 18 /min Venkata NILL [facility] 07-01-2023 12:41-0400 Body temperature 97.7 [degF] Venkata NILL [facility] 07-01-2023 10:10-0400 Heart rate 68 /min Venkata NILL [facility] 07-01-2023 09:53-0400 Mean blood pressure 97 mm[Hg] Venkata NILL [facility] 07-01-2023 09:52-0400 Respiratory rate 16 /min Venkata NILL [facility] 07-01-2023 09:51-0400 Body temperature 97.52 [degF] Venkata NILL [facility] 08-22-2022 11:11-0500 Blood Pressure Location Elizabeth ROLDAN [facility] 08-22-2022 11:11-0500 Diastolic blood pressure 61 mm[Hg] Elizabeth ROLDAN [facility] 08-22-2022 11:11-0500 Heart rate 68 /min Elizabethgeovanni ROLDAN [facility] 08-22-2022 11:11-0500 Respiratory rate 18 /min Elizabeth ROLDAN [facility] 08-22-2022 11:11-0500 SaO2% (BldA) [Mass fraction] 96 % Elizabeth ROLDAN [facility] 08-22-2022 11:11-0500 Systolic blood pressure 132 mm[Hg] Elizabeth ROLDAN [facility] 02-20-2022 14:09-0400 Blood Pressure Location Kalen Adan [facility] 02-20-2022 14:09-0400 Diastolic blood pressure 68 mm[Hg] Kalen Adan [facility] 02-20-2022 14:09-0400 Heart rate 75 /min Kaeln Adan [facility] 02-20-2022 14:09-0400 Respiratory rate 18 /min Kalen Adan [facility] 02-20-2022 14:09-0400 SaO2% (BldA) [Mass fraction] 98 % Kalen Adan [facility] 02-20-2022 14:09-0400 Systolic blood pressure 137 mm[Hg] Kalen Adan [facility] 01-25-2022 16:20-0400 Hourly Rounding Hasan AMIR [facility] 01-25-2022 16:20-0400 Promise to Return Hasan AMIR [facility] 01-25-2022 16:19-0400 gluc 131 mg/dL Hasan AMIR [facility] 01-25-2022 15:25-0400 Body temperature 98.24 [degF] Hasan AMIR [facility] 01-25-2022 15:25-0400 Diastolic blood pressure 36 mm[Hg] Hasan AMIR [facility] 01-25-2022 15:25-0400 Heart rate 67 /min Hasan AMIR [facility] 01-25-2022 15:25-0400 Mean blood pressure 62 mm[Hg] Hasan AMIR [facility] 01-25-2022 15:25-0400 SaO2% (BldA) [Mass fraction] 94 % Hasan AMIR [facility] 01-25-2022 15:25-0400 Systolic blood pressure 116 mm[Hg] Hasan AMIR [facility] 01-25-2022 15:20-0400 SaO2% (BldA) [Mass fraction] 94 % Hasan AMIR [facility] 01-25-2022 15:00-0400 Body temperature 97.7 [degF] Hasan AMIR [facility] 01-25-2022 15:00-0400 Diastolic blood pressure 81 mm[Hg] Hasan AMIR [facility] 01-25-2022 15:00-0400 gluc 129 mg/dL Hasan AMIR [facility] 01-25-2022 15:00-0400 Systolic blood pressure 131 mm[Hg] Hasan AMIR [facility] 01-25-2022 13:00-0400 Diastolic blood pressure 82 mm[Hg] Hasan AMIR [facility] 01-25-2022 13:00-0400 Heart rate 72 /min Hasan AMIR [facility] 01-25-2022 13:00-0400 Mean blood pressure 99 mm[Hg] Hasan AMIR [facility] 01-25-2022 13:00-0400 Respiratory rate 16 /min Hasan AMIR [facility] 01-25-2022 13:00-0400 Systolic blood pressure 133 mm[Hg] Hasan AMIR [facility] 01-25-2022 12:34-0400 gluc 106 mg/dL Hasan AMIR [facility] 01-25-2022 09:00-0400 Heart rate 68 /min Hasan AMIR [facility] 01-25-2022 09:00-0400 SaO2% (BldA) [Mass fraction] 98 % Hasan AMIR [facility] 01-25-2022 05:40-0400 Mean blood pressure 96 mm[Hg] Hasan AMIR [facility] 01-25-2022 05:40-0400 Respiratory rate 15 /min Hasan AMIR [facility] 01-24-2022 18:30-0400 Blood Pressure Location Hasan AMIR [facility] 01-24-2022 17:00-0400 Heart rate 75 /min Hasan AMIR [facility] 01-24-2022 17:00-0400 Respiratory rate 18 /min Hasan AMIR [facility] 01-24-2022 16:00-0400 Heart rate 81 /min Hasan AMIR [facility] 01-24-2022 14:26-0400 gluc Hasan AMIR [facility] 01-03-2022 07:43-0400 Blood Pressure Location Preethi LAFLEUR [facility] 01-03-2022 07:43-0400 Diastolic blood pressure 70 mm[Hg] Preethilacho LAFLEUR [facility] 01-03-2022 07:43-0400 Heart rate 72 /min Preethilacho LAFLEUR [facility] 01-03-2022 07:43-0400 Respiratory rate 16 /min Preethi LAFLEUR [facility] 01-03-2022 07:43-0400 Systolic blood pressure 135 mm[Hg] Preethi LAFLEUR [facility] Encounters Encounter Date Encounter Type Care Provider Facility Start: 12-30-2024 ambulatory Preethi R LAFLEUR Facili ty:[facility] Start: 12-24-2024 ambulatory Preethi R LAFLEUR Facili ty:[id number] Start: 10-06-2024 End: 10-06-2024 Marcy Mcnamara MD Work Phone: [facility] Start: 10-06-2024 End: 10-06-2024 Marcy Mcnamara MD Work Phone: [facility] Start: 10-06-2024 End: 10-06-2024 Office outpatient visit 15 minutes Ron Mcnamara MD Work Phone: [facility] Comment on above: Diabetes mellitus wi thout complication (CMS/HCC) (Primary Dx); Hyperglycemia; Primary hypertension (CMS/HCC); History of bladder cancer; Type 2 diabetes mellitus with diabetic cataract (CMS/HCC); 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); Malignant neoplasm of overlapping sites of bladder (CMS/HCC); Malignant neoplasm of bladder, unspecified (CMS/HCC); Type 2 diabetes mellitus with other specified complication (CMS/HCC); Male erectile dysfunction, unspecified; Malignant neoplasm of bladder neck (CMS/HCC); Chronic obstructive pulmonary disease, unspecified (CMS/HCC) Start: 10-06-2024 End: 10-06-2024 ambulatory RON MCNAMARA Not Available Start: 08-26-2024 End: 08-26-2024 Telephone encounter Muna Simón [facility] Comment on above: Med Refill Start: 08-26-2024 End: 08-26-2024 ambulatory Preethi LAFLEUR Facility:[facility] Start: 08-25-2024 End: 08-25-2024 Office outpatient visit 15 minutes Ron Mcnamara MD Work Phone: [facility] Comment on above: Diabetes mellitus wi thout complication (CMS/HCC) Start: 08-25-2024 End: 08-25-2024 ambulatory RON MCNAMARA Not Available Start: 08-25-2024 End: 08-25-2024 Bamboo flowsheet Ron Mcnamara MD Work Phone: [facility] Start: 08-25-2024 End: 08-25-2024 Bamboo flowsumm Mcnamara MD Work Phone: [facility] Start: 06-04-2024 End: 06-04-2024 Telephone encounter Sandra August NP Work Phone: [facility] Comment on above: Care Coordination Start: 03-25-2024 End: 03-25-2024 ambulatory SANDRA AUGUST Not Available Start: 03-25-2024 End: 03-25-2024 Lab Drop off Preethi LAFLEUR [facility] Start: 03-25-2024 End: 03-25-2024 ambulatory Preethi LAFLEUR Facility:[facility] Start: 03-25-2024 End: 03-25-2024 Patient encounter procedure Preethi LAFLEUR [facility] Start: 02-13-2024 End: 02-13-2024 ambulatory ASH BARROS Not Available Start: 01-30-2024 End: 01-30-2024 Patient encounter procedure Ron Mcnaamra MD Work Phone: [facility] Comment on above: Screening for hyperc holesterolemia (Primary Dx); Type 2 diabetes mellitus without complication, without long-term current use of insulin (CMS/[facility]); High risk medication use; Aortic valve stenosis, etiology of cardiac valve disease unspecified; Primary hypertension (CMS/HCC) Start: 01-30-2024 End: 01-30-2024 ambulatory RON MCNAMARA Not Available Start: 07-26-2023 End: 07-26-2023 Patient encounter procedure Venkata RODG[facility] Start: 07-01-2023 End: 07-01-2023 Admission to same day surgery center Venkata RODGERS [facility] Start: 04-10-2023 Patient encounter status Jacquelin August NP Work Phone: [facility] Start: 08-23-2022 End: 08-23-[address] PREETHI LAFLEUR Facility: Start: 08-22-2022 End: 08-22-2022 Patient encounter procedure Elizabeth ROLDAN [facility] Start: 06-28-2022 End: 06-28-2022 Patient encounter procedure JOSE MCFADDEN [facility] Start: 06-21-2022 End: 06-21-[address] PREETHI LAFLEUR Facility:[facility] Start: 06-18-2022 End: 06-18-2022 Patient encounter procedure Preethi LAFLEUR [facility] Start: 05-03-2022 End: 05-03-[address] PREETHI LAFLEUR Facility:[facility] Start: 05-01-2022 Encounter for prepro cedural laboratory examination DR PREETHI LAFLEUR [facility] Start: 04-27-2022 End: 04-28-[address] PREETHI LAFLEUR Facility:[facility] Start: 04-27-2022 End: 04-28-2022 Encounter for preprocedural laboratory examination DR PREETHI LAFLEUR Facility:[facility] Start: 02-20-2022 End: 02-20-2022 Patient encounter procedure Kalen Adan [facility] Start: 01-25-[address] PREETHI LAFLEUR [facility] ity:[facility] Start: 01-24-2022 End: 01-25-2022 Observation Jinjohnson ANTONINA [facility] Start: 01-17-2022 Encounter for prepro cedural cardiovascular examination DR PREETHI LAFLEUR [facility] Start: 01-17-2022 Encounter for prepro cedural laboratory examination DR PREETHI LAFLEUR [facility] Start: 01-16-2022 End: 01-17-[address] PREETHI LAFLEUR Facility:[facility] Start: 01-16-2022 End: 01-17-2022 Encounter for preprocedural cardiovascular examination DR PREETHI LAFLEUR Facility:[facility] Start: 01-03-2022 End: 01-03-2022 Patient encounter procedure Preethi LAFLEUR [facility] Start: 11-06-2021 End: 11-06-[address] PREETHI LAFLEUR Facility:[facility] Start: 10-09-2021 End: 10-09-[address] PREETHI LAFLEUR Facility:[facility] Start: 08-31-2021 End: 08-31-[address] PREETHI LAFLEUR Facility:[facility] Start: 08-28-[address] PREETHI LAFLEUR Facil ity:[facility] Procedures Date Procedure Procedure Detail Performing Clinician Start: 10-06-2024 Hemoglobin glycosylated a1c Ron Mcnamara MD Work Phone: Start: 08-25-2024 Hemoglobin glycosylated a1c Ron Mcnamara MD Work Phone: Start: 03-25-2024 Flexible cystoscopy Iveth LAFLEUR Start: 01-30-2024 Hemoglobin glycosylated a1c Ron Mcnamara MD Work Phone: Start: 07-01-2023 Laparoscopic repair of inguinal hernia Venkata NILL Start: 06-12-2023 Cystoscopy Venkata [facility] Start: 11-14-2022 Cystoscopy [facility] Start: 01-03-2022 Cystoscopy Preethi COKER TERS Start: 08-09-2021 Cystoscopy Preethi COKER TERS Start: 05-10-2021 Cystoscopy Preethi COKER TERS Start: 01-18-2021 Cystoscopy Preethi LITTLES Start: 10-27-2020 Repair of right ingu inal hernia Preethi LAFLEUR Start: 08-30-2020 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 Preethi LAFLEUR Start: 06-22-2020 Cystoscopy Preethi COKER TERS Start: 03-30-2020 Cystoscopy Preethi LITTLES Start: 01-06-2020 Cystoscopy Preethi MOORE Start: 08-18-2019 Cystoscope, device (physical object) Preethi LAFLEUR Start: 05-21-2019 Transurethral resect ion of bladder neoplasm Preethi LAFLEUR Start: 12-30-2018 Cystoscopy Preethi MOORE Comment on above: 07/20/09, 10/26/09, 08/25, 05/03/10, 09/20/10, 12/27/10, 04/11/11, 07/11/11, 10/10/15, 01/09/12, 04/02/12, 10/08/12, 09/30/13, 11/03/14, 03/30/15, 06/22/15, 09/27/15, 01/25/16 Start: 06-30-2018 Cystoscopy to remove object Preethi LAFLEUR Comment on above: R stent removal in 2 004 L stent removal 06/30/18 Start: 06-19-2018 Cystoscopy and transurethral resection of bladder tumor Preethi LAFLEUR Comment on above: w/ lL stent placemen t Start: 06-19-2018 History of insertion of stent into ureter Preethi LAFLEUR Start: 08-12-2017 Cataract extraction and insertion of intraocular lens Preethi LAFLEUR Comment on above: Right eye Start: 06-07-2016 Transurethral prostatectomy Preethi LAFLEUR Comment on above: cysto lithalopaxy Start: 02-01-2016 Urodynamic studies Ivethr avi LAFLEUR Start: 05-30-2010 Laser bladder lesion therapy Preethi LAFLEUR Start: 07-20-2009 Cystoscopy Preethi MOORE Comment on above: 10/26/09, 01/25/10, 03/07, 09/20/10, 12/27/10, 04/11/11, 07/11/11, 10/10/15, 01/09/12, 04/02/12, 10/08/12, 09/30/13, 11/03/14, 03/30/15, 06/22/15, 09/27/15, 08/24/16, 01/25/16, 11/23/16, 05/21/17, 12/30/18 Start: 05-05-2009 Transurethral resect ion of bladder neoplasm Preethi LAFLEUR Comment on above: 12/26/14 06/19/2018 Start: 09-16-2008 Extracorporeal shock wave lithotripsy of calculus of kidney Preethi LAFLEUR Comment on above: w/stent removal Start: 09-16-2003 Removal of ureteral stent Preethi LAFLEUR Comment on above: 2008, 06/30/18 Cataract (disorder) Preethi LAFLEUR Comment on above: left Plan of Treatment Date Care Activity Detail Author Start: 01-29-2025 Medicare Annual Wellness (AWV) Medicare Annual Wellness (AWV) [facility] Start: 01-04-2025 Hemoglobin A1c measurement Diabetes: Hemoglobin A1C [facility] Start: 01-04-2025 End: 01-04-2025 Patient encounter procedure 01/04/2025 9:15 AM EDT Office Visit [facility] [address] [place] [phone] Ron Mcnamara MD [address] [place] [address] [facility] Start: 11-23-2024 Hemoglobin A1c measurement Diabetes: Hemoglobin A1C [facility] Start: 10-06-2024 End: 10-06-2024 Patient encounter procedure [facility] Comment on above: Arrived Start: 08-27-2024 End: 08-27-2024 Patient encounter procedure 08/27/2024 8:15 AM EST Office Visit [facility] [address] [place] [phone] Ron Mcnamara MD [address] [place] [address] [facility]LO[facility] Start: 08-25-2024 End: 08-25-2024 Patient encounter procedure 08/25/2024 3:15 PM EST Office Visit [facility] [address] [place] [phone] Ron Mcnamara MD [address] [place] [address] Arrived [facility] Comment on above: Arrived Start: 05-17-2024 Influenza vaccination Influenza Vaccine (#1) [facility] Start: 05-01-2024 Hemoglobin A1c measurement Diabetes: Hemoglobin A1C [facility] Start: 01-30-2024 End: 01-29-2025 Comprehensive metabolic 2000 panel - Serum or Plasma Comprehensive metabolic panel Lab Routine Type 2 diabetes mellitus without complication, without long-term current use of insulin ([facility]) High risk medication use Expected: 01/30/2024 (Approximate), Expires: 01/29/2025 [facility] Work Phone: Comment on above: Expected: 01/30/2024 (Approximate), Expi res: 01/29/2025 Start: 01-30-2024 End: 01-29-2025 Lipid 1996 panel - Serum or Plasma Lipid panel Lab Routine Screening for hypercholesterolemia Expected: 01/30/2024 (Approximate), Expires: 01/29/2025 [facility] Comment on above: Expected: 01/30/2024 (Approximate), Expi res: 01/29/2025 Start: 01-09-2024 Urine screening for protein Diabetes: Urine Protein Screening [facility] Start: 03-29-2023 Urine screening for protein Diabetes: Urine Protein Screening [facility] Start: 03-06-2023 Glaucoma screening Diabetes: Retinopathy Screening [facility] Immunizations Immunization Date Immunization Notes Care Provider Fa cili 05-19-2024 influenza virus vaccine, unspecified formulation Ron Mcnamara MD Work Phone: [facility] 06-24-2023 Influenza, High-dose Seasonal, Quadrivalent, Preservative Free Sandra Donnamiller STAFF COUNSEL Work Phone: [facility] 06-24-2023 influenza virus vaccine, unspecified formulation Sandra Donnamiller STAFF COUNSEL Work Phone: [facility] 06-18-2022 influenza, high dose seasonal, preservative-free Sandra Donnamiller STAFF COUNSEL Work Phone: [facility] 06-18-2022 Influenza, High-dose Seasonal, Quadrivalent, Preservative Free Sandra Donnamiller STAFF COUNSEL Work Phone: [facility] 07-17-2021 Covid-19 Non-us Vaccine, Product Unknown Sandra Donnamiller STAFF COUNSEL Work Phone: [facility] 07-17-2021 Moderna Bivalent Booster Vaccination Sandra Donnamiller STAFF COUNSEL Work Phone: [facility] Work Phone: 06-22-2021 Covid-19 Non-us Vaccine, Product Unknown Sandra Donnamiller STAFF COUNSEL Work Phone: [facility] 06-22-2021 influenza, high dose seasonal, preservative-free Sandra Donnamiller STAFF COUNSEL Work Phone: [facility] 06-22-2021 Influenza, High-dose Seasonal, Quadrivalent, Preservative Free Sandra Donnamiller STAFF COUNSEL Work Phone: [facility] 06-22-2021 Moderna Bivalent Booster Vaccination Sandra Donnamiller STAFF COUNSEL Work Phone: [facility] 11-25-2020 SARS-CoV-2 (COVID-19 ) Ad26 vaccine, recombinant Preethi LAFLEUR [facility] 11-04-2020 SARS-CoV-2 (COVID-19 ) Ad26 vaccine, recombinant Preethi LAFLEUR [facility] 06-20-2020 Influenza, Seasonal, Quadrivalent, Adjuvanted Sandra Donnamiller STAFF COUNSEL Work Phone: [facility] 06-16-2020 influenza virus vaccine, unspecified formulation Preethi LAFLEUR [facility] 06-06-2019 influenza, high dose seasonal, preservative-free Sandra Donnamiller STAFF COUNSEL Work Phone: [facility] 01-06-2019 pneumococcal polysaccharide vaccine, 23 valent Sandra Donnamiller STAFF COUNSEL Work Phone: [facility] 07-08-2018 influenza, high dose seasonal, preservative-free Sandra Donnamiller STAFF COUNSEL Work Phone: [facility] 07-08-2018 influenza, seasonal, injectable, preservative free Sandra Donnamiller STAFF COUNSEL Work Phone: [facility] 07-01-2017 influenza, high dose seasonal, preservative-free Sandra Donnamiller STAFF COUNSEL Work Phone: [facility] 07-02-2016 influenza, high dose seasonal, preservative-free Sandra Donnamiller STAFF COUNSEL Work Phone: [facility] 2015 influenza, high dose seasonal, preservative-free Sandra Donnamiller STAFF COUNSEL Work Phone: [facility] 2015 pneumococcal conjuga te vaccine, 13 valent Sandra Donnamiller STAFF COUNSEL Work Phone: [facility] 06-02-2014 influenza, seasonal, injectable Sandra Donnamiller STAFF COUNSEL Work Phone: [facility] 06-30-2013 influenza, seasonal, injectable Sandra Donnamiller STAFF COUNSEL Work Phone: [facility] Payers Date Payer Category Payer Private Health Insurance [facility] [id number] 2022 Unknown [employer] [place] [employer] [place] [id number] 2022-Present [address] [place] [address] [id number] 2009 Medicare [id number] 1959 Medicare [id number] 1959 Unknown [id number] 1944 Unknown [id number] .840.1.030821.3.579 .2.59 1944 Unknown [id number] .840.1.285061.3.579 .2.59 1944 Unknown [id number] 11.01.830.1.262011.3.579 .2.59 1944 Unknown [id number] .840.1.568061.3.579 .2.593 1944 Unknown [id number] 2.16840.1.529483.3.579 .2.59 1944 Unknown [id number] .840.1.712621.3.579 .2.59 1944 Unknown [id number] 2.840.1.744865.3.579 .2.593 1944 Unknown [id number] 2.16.840.1.972541.3.579 .2.593 1944 Unknown [id number] 2.16.840.1.254426.3.579 .2.593 1944 Unknown [id number] 2.16.840.1.547195.3.579 .2.593 1944 Unknown [id number] 2.16.840.1.032088.3.579 .2.727 1944 Unknown [id number] 2.16.840.1.811911.3.579 .2.727 1944 Unknown [id number] 2.16.840.1.907758.3.579 .2.727 1944 Unknown [id number] 2.16.840.1.370482.3.579 .2.1259 1944 Unknown [id number] 2.16.840.1.736335.3.579 .2.1259 1944 Unknown [id number] 2.16.840.1.880114.3.579 .2.1259 1944 Unknown [id number] 2.16.840.1.240150.3.579 .2.1259 1944 Unknown [id number] 2.16.840.1.501757.3.579 .2.1259 1944 Unknown [id number] 2.16.840.1.532483.3.579 .2.727 1944 Unknown [id number] 2.16.840.1.061273.3.579 .2.727 Social History Date Type Detail Facility Start: 01-03-2022 End: 03-07-2023 Tobacco smoking status Ex-smoker (finding) [facility] Start: 03-07-2023 End: 01-30-2024 Sex Assigned At Male [facility] Tobacco smoking status Never [facility] [place] End: 09-16-1994 History of tobacco use Current smoker [facility] End: 09-16-1994 History of tobacco use Cigarette Smoker [facility] Start: 03-07-2023 Tobacco use and exposure Smokeless tobacco non-user [facility] Start: 01-30-2024 End: 10-06-2024 Alcoholic beverage intake Ex-drinker (finding) [facility] Start: 03-07-2023 End: 01-30-2024 History of Social function [facility] How often to you hav e a drink containing alcohol? Never [facility] Do you feel stress - tense, restless, nervous, or anxious, or unable to sleep at night because your mind is troubled all the time - these days [OSQ] Not at all [facility] (I/We) worried wheth er (my/our) food would run out before (I/we) got money to buy more. Never true [facility] In the past 12 month s, was there a time when you were not able to pay the mortgage or rent on time? No [facility] Start: 1945 Sex assigned at Not on file [facility] Medical Equipment Procedure Code Equipment Code Equipment Origin al Text Equipment Identifier Dates FDA Start: 10-27-2020 FDA Start: 10-27-2020 FDA Start: 10-27-2020 INGUINAL HERNIA REPAIR ADULT Venkata RODGERS MD 10/27/20 Unknown Unknown FDA Start: 10-27-2020 INGUINAL HERNIA REPAIR ADULT Venkata RODGERS MD 10/27/20 Unknown Unknown FDA Start: 10-27-2020 INGUINAL HERNIA REPAIR ADULT Venkata RODGERS MD 10/27/20 Unknown Unknown FDA Start: 10-27-2020 INGUINAL HERNIA REPAIR ADULT Venkata RODGERS MD 10/27/20 Unknown Unknown FDA Start: 10-27-2020 INGUINAL HERNIA REPAIR ADULT Venkata RODGERS MD 07/01/23 Non Biological Other {[id number] FDA Start: 07-01-2023 INGUINAL HERNIA REPAIR ADULT Venkata RODGERS MD 10/27/20 Unknown Unknown FDA Start: 02-11-2021 INGUINAL HERNIA REPAIR ADULT Venkata RODGERS MD 10/27/20 Unknown Unknown FDA Start: 10-27-2020 INGUINAL HERNIA REPAIR ADULT Venkata RODGERS MD 10/27/20 Unknown Unknown FDA Start: 10-27-2020 Functional Status Date Assessment Result Facility 03-25-2024 Functional Status N/A [facility] 06-24-2023 Functional Status No [facility] 08-22-2022 Functional Status N/A [facility] Clinical Notes 01-03-2022 to 10-06-2024 Ron Mcnamara MD - 10/06/2024 9:00 AM ESTTelephone Encounter - Muna Gr - 08/26/2024 11:18 AM ESTTelephone Encounter - Muna Ochoaroe - 08/26/2024 11:18 AM ESTRadiology Note Date & Type Note Facility 10-06-2024 History of Presen t illness Narrative Images from the original note were not included. Sarah Magaña is a 79 y.o. male presents with chief complaint of Diabetes HPI: History of Present Illness The patient is an 79-year-old male who presents for evaluation of diabetes mellitus. He reports a significant improvement in his blood glucose levels, with no episodes of hypoglycemia characterized by weakness or shakiness. He has been actively managing his diabetes, which has resulted in a weight loss of 9 pounds. He attributes this weight loss to dietary changes, including reduced food intake due to his 's health condition, which has necessitated that he take over meal preparation. He expresses concern about the potential for further weight loss and its impact on his blood glucose levels. MEDICATIONS glipizide MEDICATIONS: Current Outpatient Medications Medication Instructions atorvastatin (Lipitor) 40 MG tablet TAKE 1 TABLET ONCE DAILY (INCREASED DOSE) glipiZIDE (GLUCOTROL) 5 mg, Oral, Daily hydroCHLOROthiazide (MICROZIDE) 12.5 mg, Oral, Every morning hydrocortisone 2.5 % ointment APPLY TO AFFECTED AREA TWICE DAILY FOR 30 DAYS lisinopril 10 MG tablet TAKE 1 TABLET ONCE DAILY (REPLACES ENALAPRIL) metFORMIN (GLUCOPHAGE) 500 mg, Oral, 2 times daily with meals omeprazole (PRILOSEC) 40 mg, Oral, 2 times daily ALLERGIES: Allergies Allergen Reactions Bacillus Calmette Wicho Live Fever had flu like symptoms Iodinated Contrast Media Other Reaction(s): hives Iodine Unknown Penicillin G Other Reaction(s): hives Review of Systems Constitutional: Negative. HENT: Negative. Respiratory: Negative for cough and shortness of breath. Cardiovascular: Negative for chest pain and palpitations. Gastrointestinal: Negative. Medical, Surgical, Family, and Social History reviewed. OBJECTIVE: Visit Vitals BP 126/72 (BP Location: Right arm, Patient Position: Sitting, BP Cuff Size: Adult) Pulse 55 Temp 97.8 F (Temporal) Ht 6' Wt 208 lb 6.4 oz SpO2 95% BMI 28.26 kg/m Smoking Status Former BSA 2.19 m BP Readings from Last 3 Encounters: 10/06/24 126/72 08/25/24 138/76 03/25/24 120/60 Wt Readings from Last 3 Encounters: 10/06/24 208 lb 6.4 oz 08/25/24 217 lb 03/25/24 207 lb 6.4 oz Physical Exam Constitutional: Appearance: Normal appearance. HENT: Head: Normocephalic and atraumatic. Cardiovascular: Rate and Rhythm: Normal rate and regular rhythm. Heart sounds: No murmur heard. No gallop. Pulmonary: Breath sounds: No wheezing, rhonchi or rales. Musculoskeletal: Right lower leg: No edema. Left lower leg: No edema. Skin: General: Skin is warm and dry. Neurological: Mental Status: He is alert. Physical Exam Results Laboratory Studies Hemoglobin A1c is 7.2. ASSESSMENT AND PLAN: Assessment & Plan 1. Diabetes Mellitus. His hemoglobin A1c has decreased to 7.2, indicating improved glycemic control. He has lost 9 pounds, which is beneficial for his overall health. He is advised to discontinue glipizide 5 mg if he experiences symptoms of hypoglycemia such as weakness or shakiness. The potential side effects and the mechanism of action of glipizide were discussed. Follow-up The patient will follow up in 3 months. Assessment/Plan Health Maintenance Due Topic Date Due Diabetes: Retinopathy Screening 03/06/2023 Diabetes: Urine Protein Screening 03/29/2023 documented in this encounter [facility] 12-11-2024 Telephone encounter Note Pt would like all of his meds refilled at 90 day supply if possible, sent out beginning of the yr. He is only using [facility] in [place]. Also he requests that the metformin be sent in lower mg so that he doesn't have to cut the pills in half. [facility] 08-26-2024 Miscellaneous Notes Pt would like all of his meds refilled at 90 day supply if possible, sent out beginning of the yr. He is only using [facility] in [place]. Also he requests that the metformin be sent in lower mg so that he doesn't have to cut the pills in half. documented in this encounter [facility] 08-26-2024 Note Patient Education Oncology Transurethral Resection of Bladder Tumor, Care After The following information offers guidance on how to care for yourself after your procedure. Your health care provider may also give you more specific instructions. If you have problems or questions, contact your health care provider. What can I expect after the procedure? After the procedure, it is common to have: ??? A small amount of blood or small blood clots in your urine for up to 2 weeks. ??? Soreness or mild pain from your catheter. After your catheter is removed, you may have mild soreness, especially when urinating. ??? A need to urinate often. ??? Pain in your lower abdomen. Follow these instructions at home: Medicines ??? Take nzhl-dxy-cawyswr and prescription medicines only as told by your health care provider. ??? If you were prescribed an antibiotic medicine, take it as told by your health care provider. Do not stop taking the antibiotic even if you start to feel better. ??? Ask your health care provider if the medicine prescribed to you: ? Requires you to avoid driving or using machinery. ? Can cause constipation. You may need to take these actions to prevent or treat constipation: ? Drink enough fluid to keep your urine pale yellow. ? Take yvkq-jlj-xqkqmno or prescription medicines. ? Eat foods that are high in fiber, such as beans, whole grains, and fresh fruits and vegetables. ? Limit foods that are high in fat and processed sugars, such as fried or sweet foods. Activity ??? If you were given a sedative during the procedure, it can affect you for several hours. Do not drive or operate machinery until your health care provider says that it is safe. ??? Rest as told by your health care provider. ??? Avoid sitting for a long time without moving. Get up to take short walks every 1?2 hours. This is important to improve blood flow and breathing. Ask for help if you feel weak or unsteady. ??? Do not lift anything that is heavier than 10 lb (4.5 kg), or the limit that you are told, until your health care provider says that it is safe. ??? Avoid intense physical activity for as long as told by your health care provider. ??? Do not have sex until your health care provider approves. ??? Return to your normal activities as told by your health care provider. Ask your health care provider what activities are safe for you. General instructions ??? If you have a catheter, follow instructions from your health care provider about caring for your catheter and your drainage bag. ??? Do not drink alcohol for as long as told by your health care provider. This is especially important if you are taking prescription pain medicines. ??? Do not use any products that contain nicotine or tobacco. These products include cigarettes, chewing tobacco, and vaping devices, such as e-cigarettes. If you need help quitting, ask your health care provider. ??? Wear compression stockings as told by your health care provider. These stockings help to prevent blood clots and reduce swelling in your legs. ??? Keep all follow-up visits. This is important. ? You will need to be followed closely with regular checks of your bladder and urethra (cystoscopies) to make sure that the cancer does not come back. Contact a health care provider if: ??? You have blood in your urine for more than 2 weeks. ??? You become constipated. Signs of constipation may include: ? Having fewer than three bowel movements in a week. ? Difficulty having a bowel movement. ? Stools that are dry, hard, or larger than normal. ??? You have a urinary catheter in place, and you have: ? Spasms or pain. ? Problems with your catheter or your catheter is blocked. ??? Your catheter has been taken out but you are unable to urinate. ??? You have signs of infection, such as: ? Fever or chills. ? Cloudy or bad-smelling urine. Get help right away if: ??? You have severe abdominal pain that gets worse or does not improve with medicine. ??? You have a lot of large blood clots in your urine. ??? You develop swelling or pain in your leg. ??? You have difficulty breathing. These symptoms may be an emergency. Get help right away. Call 911. ??? Do not wait to see if the symptoms will go away. ??? Do not drive yourself to the hospital. Summary ??? After your procedure, it is common to have a small amount of blood or small blood clots in your urine, soreness or mild pain from your catheter, and pain in your lower abdomen. ??? Take lvpa-ncb-zbdafze and prescription medicines only as told by your health care provider. ??? Rest as told by your health care provider. Follow your health care provider's instructions about returning to normal activities. Ask what activities are safe for you. ??? If you have a catheter, follow instructions from your health care provider about caring for your catheter and your drainage bag. (more content not included)... [facility] 08-25-2024 History of Presen t illness Narrative Images from the original note were not included. Sarah Magaña is a 79 y.o. male presents with chief complaint of Follow-up, Foot Injury (Patient reporting issue on pads of both feet), and Diabetes HPI: History of Present Illness The patient is an 79-year-old male who presents for evaluation of diabetes mellitus. He reports a sensation of swelling in the pad of his foot when he curls his toes, which he attributes to his diabetes. This sensation does not cause him pain or discomfort at night but is noticeable when he wears shoes. He has not experienced any episodes of hypoglycemia characterized by weakness or shakiness. He also reports no chest pain or shortness of breath. He has been on a cruise for the past 72 days, during which he consumed a significant amount of Coca-Cola, approximately 3 to 4 times daily, over a period of 2.5 months. He abstained from desserts during this time, with the exception of ice cream. Since returning home, he has discontinued his Coca-Cola consumption and has been drinking flavored water from [employer]. He has not consumed Diet Coke for several years. He is currently on metformin 500 mg twice daily, having reduced the dosage from 1000 mg due to diarrhea. He has a 2-month supply remaining. He continues to take glipizide 5 mg once daily. Supplemental Information He experiences occasional lightheadedness upon standing. He plans to start a workout program and go skiing in November. FAMILY HISTORY Both of his parents lived to be 91 years old. MEDICATIONS Current: Metformin, glipizide MEDICATIONS: Current Outpatient Medications Medication Instructions atorvastatin (Lipitor) 40 MG tablet TAKE 1 TABLET ONCE DAILY (INCREASED DOSE) glipiZIDE (GLUCOTROL) 5 mg, Oral, Daily hydroCHLOROthiazide (MICROZIDE) 12.5 mg, Oral, Every morning hydrocortisone 2.5 % ointment APPLY TO AFFECTED AREA TWICE DAILY FOR 30 DAYS lisinopril 10 MG tablet TAKE 1 TABLET ONCE DAILY (REPLACES ENALAPRIL) metFORMIN (GLUCOPHAGE) 500 mg, Oral, 2 times daily with meals omeprazole (PRILOSEC) 40 mg, Oral, 2 times daily ALLERGIES: Allergies Allergen Reactions Bacillus Calmette Wicho Live Fever had flu like symptoms Iodinated Contrast Media Other Reaction(s): hives Iodine Unknown Penicillin G Other Reaction(s): hives Review of Systems Constitutional: Negative. HENT: Negative. Respiratory: Negative for cough and shortness of breath. Cardiovascular: Negative for chest pain and palpitations. Gastrointestinal: Negative. Medical, Surgical, Family, and Social History reviewed. OBJECTIVE: Visit Vitals BP 138/76 (BP Location: Right arm, Patient Position: Sitting, BP Cuff Size: Adult) Pulse 81 Temp 98.6 F (Temporal) Ht 6' Wt 217 lb SpO2 97% BMI 29.43 kg/m Smoking Status Former BSA 2.24 m BP Readings from Last 3 Encounters: 08/25/24 138/76 03/25/24 120/60 02/13/24 124/72 Wt Readings from Last 3 Encounters: 08/25/24 217 lb 03/25/24 207 lb 6.4 oz 02/13/24 207 lb Physical Exam Constitutional: Appearance: He is obese. HENT: Head: Normocephalic and atraumatic. Cardiovascular: Rate and Rhythm: Normal rate and regular rhythm. Heart sounds: No murmur heard. No gallop. Pulmonary: Breath sounds: No wheezing, rhonchi or rales. Musculoskeletal: Right lower leg: No edema. Left lower leg: No edema. Skin: General: Skin is warm and dry. Neurological: Mental Status: He is alert. Mental status is at baseline. Psychiatric: Mood and Affect: Mood normal. Physical Exam Lungs were auscultated. Results Laboratory Studies Hemoglobin A1c is 8.4. ASSESSMENT AND PLAN: Assessment & Plan 1. Diabetes mellitus. His hemoglobin A1c level has increased to 8.4, up from the previous reading of 7.7. This could potentially be attributed to his recent dietary habits, including the consumption of regular Coke during his cruise. He reports no symptoms of hypoglycemia such as weakness or shakiness. He is currently taking metformin 500 mg twice a day and glipizide 5 mg once a day. He is advised to switch to diet beverages if he craves soda. No changes to his medication regimen are recommended at this time. If there is no improvement in his hemoglobin A1c level at the next visit, adjustments to his medication regimen will be considered. Follow-up The patient will follow up in 6 weeks. Assessment/Plan Health Maintenance Due Topic Date Due Diabetes: Retinopathy Screening 03/06/2023 Diabetes: Urine Protein Screening 03/29/2023 Diabetes: Hemoglobin A1C 05/01/2024 documented in this encounter [facility] 06-04-2024 Telephone encounter Note Patient in office today with - they are planning a trip next week and is concerned about health during the trip - 72 day cruise. He has been prescribed a course of antibiotics by Dr. Mcnamara for similar trips in the past. Requesting same. [facility] 06-04-2024 Miscellaneous Notes Patient in office today with - they are planning a trip next week and is concerned about health during the trip - 72 day cruise. He has been prescribed a course of antibiotics by Dr. Mcnamara for similar trips in the past. Requesting same. documented in this encounter [facility] 03-25-2024 Evaluation + Plan note Diagnostic Tests PendingUroVysion Fish and Urine Cyto ([facility]) 03/25/[address] [facility] 03-25-2024 Hospital Discharg e instructions Patient Education 03/25/2024 07:50:50 Cancer Screening for Men Cancer Screening for Men A cancer screening is a test or exam that checks for cancer. Your health care provider will recommend specific cancer screenings based on your age, medical history (including risk factors), and family history of cancer. Work with your health care provider to create a cancer screening schedule that protects your health. Who should have screening? All men should be considered for screening of certain cancers, including colorectal cancer, prostate cancer, lung cancer, and skin cancer. Your health care provider may recommend screenings for other types of cancer if: You had cancer before. You have a family member with cancer. You have abnormal genes that could increase the risk of cancer. You have risk factors for certain cancers, such as current or past use of tobacco products, or being overweight. When you should be screened for cancer depends on: Your age. Your medical history and your family's medical history. Certain lifestyle factors, such as smoking or other use of tobacco products. Environmental exposure, such as to asbestos. How is screening done? Colorectal cancer All adults should have screenings starting at age 45 and continuing until age 75. Your health care provider may recommend screening before age 45. You will have tests every 1 10 years, depending on your results and the type of screening test. People at increased risk should start screening at an earlier age. Talk with your health care provider about which screening test is right for you and how often you should be screened. Colorectal cancer screening looks for cancer or for growths called polyps that often form before cancer starts. Tests to look for cancer or polyps include: Colonoscopy or flexible sigmoidoscopy. For these procedures, a flexible tube with a small camera is inserted into the rectum. CT colonography. This test uses X-rays and a contrast dye to check the colon for polyps. If a polyp is found, you may need to have a colonoscopy so the polyp can be located and removed. Tests to look for cancer in the stool (feces) include: Guaiac-based fecal occult blood test (FOBT). This test can find blood in stool. It can be done at home with a kit. Fecal immunochemical test (FIT). This test can find blood in stool. For this test, you will need to collect stool samples at home. Stool DNA test. This test looks for blood in stool and any changes in DNA that can lead to colon cancer. For this test, you will need to collect a stool sample at home and send it to a lab. Prostate cancer Prostate cancer screening for men with average risk may start at age 50. Men with risk factors may need to be screened earlier, at ages 40 45. Talk with your health care provider about whether screening is right for you and, if so, how often you should be screened. Prostate cancer screening is done with blood tests and a digital rectal exam. During this exam, a health care provider uses a gloved finger to check prostate size. You may need to be screened for prostate cancer if: You have risk factors for prostate cancer, such as being or having a close family member with prostate cancer. You have had gene changes or a genetic condition that was passed on to you from a parent (inherited). These gene changes or genetic conditions include BRCA1 or BRCA2 gene mutations or Uriarte syndrome. You have symptoms of prostate cancer, such as problems urinating or problems getting or keeping an erection (erectile dysfunction). When you have been screened for prostate cancer, future screening may be recommended based on the results of your blood tests. Lung cancer Lung cancer screening is done with a CT scan that looks for abnormal changes in the lungs. Discuss lung cancer screening with your health care provider if you are 50 80 years old and if any of the following apply to you: You currently smoke. You used to smoke heavily. You have a smoking history of 1 pack of cigarettes a day for 20 years or 2 packs a day for 10 years. You have quit smoking within the past 15 years. You may need to be screened every year if you smoke heavily or if you used to smoke. Skin cancer Skin cancer screening is done by checking the skin for unusual moles or spots and any changes in existing moles. Your health care provider should check your skin for signs of skin cancer at every physical exam. You should check your skin every month and tell your health care provider right away if anything looks unusual. Men with a udkpzt-nrgp-mezmbh risk for skin cancer may want to see a multimedia educational specialist (drop wire aliner) for an annual body check. What are the benefits of screening? Cancer screening is done to look for cancer in the very early stages, before it spreads and becomes harder to treat and before you would start to notice symptoms. Finding cancer early improves the chances of successful treatment. It may save your life. Where to find more information [place] [employer]: www.cancer.org Centers for Disease Control and Prevention: www.cdc.gov National Cancer [place]: www.cancer.gov Contact a health care provider if: You have concerns about any signs or symptoms of cancer. These may include: Skin problems. You may have: ?Moles of an unusual shape or color. ?Changes in existing moles. ?A sore on your skin that does not heal. Tiredness (fatigue) that does not go away. Losing weight without trying. Blood in your urine or stool. Problems with urination. You may have: ?Changes in urination habits. ?Painful urination. Painful ejaculation. Problems with coughing or breathing. These may include: ?Coughing or trouble breathing that does not go away. ?Coughing up blood. Frequent pain or cramping in your abdomen. Summary Your health care provider will recommend specific cancer screenings based on your age, medical history, and family history of cancer. Work with your health care provider to create a cancer screening schedule that protects your health. Finding cancer early improves the chances of successful treatment. It may save your life. Contact a health care provider if you have concerns about any signs or symptoms of cancer. This information is not intended to replace advice given to you by your health care provider. Make sure you discuss any questions you have with your health care provider. Document Revised: 01/29/2022 Document Reviewed: 07/29/2020 [employer] Patient Education 2022 [employer] Follow Up Care 03/09/2024 14:16:55 With:ODILON JENKINS, Preethi Arango, URL Address: [facility] [address] , [place] [address]- When: Unknown [facility] 03-25-2024 Note Patient Education Oncology Cancer Screening for Men A cancer screening is a test or exam that checks for cancer. Your health care provider will recommend specific cancer screenings based on your age, medical history (including risk factors), and family history of cancer. Work with your health care provider to create a cancer screening schedule that protects your health. Who should have screening? All men should be considered for screening of certain cancers, including colorectal cancer, prostate cancer, lung cancer, and skin cancer. Your health care provider may recommend screenings for other types of cancer if: ? You had cancer before. ? You have a family member with cancer. ? You have abnormal genes that could increase the risk of cancer. ? You have risk factors for certain cancers, such as current or past use of tobacco products, or being overweight. When you should be screened for cancer depends on: ? Your age. ? Your medical history and your family's medical history. ? Certain lifestyle factors, such as smoking or other use of tobacco products. ? Environmental exposure, such as to asbestos. How is screening done? Colorectal cancer All adults should have screenings starting at age 45 and continuing until age 75. Your health care provider may recommend screening before age 45. You will have tests every 1?10 years, depending on your results and the type of screening test. People at increased risk should start screening at an earlier age. Talk with your health care provider about which screening test is right for you and how often you should be screened. Colorectal cancer screening looks for cancer or for growths called polyps that often form before cancer starts. Tests to look for cancer or polyps include: ? Colonoscopy or flexible sigmoidoscopy. For these procedures, a flexible tube with a small camera is inserted into the rectum. ? CT colonography. This test uses X-rays and a contrast dye to check the colon for polyps. If a polyp is found, you may need to have a colonoscopy so the polyp can be located and removed. Tests to look for cancer in the stool (feces) include: ? Guaiac-based fecal occult blood test (FOBT). This test can find blood in stool. It can be done at home with a kit. ? Fecal immunochemical test (FIT). This test can find blood in stool. For this test, you will need to collect stool samples at home. ? Stool DNA test. This test looks for blood in stool and any changes in DNA that can lead to colon cancer. For this test, you will need to collect a stool sample at home and send it to a lab. Prostate cancer Prostate cancer screening for men with average risk may start at age 50. Men with risk factors may need to be screened earlier, at ages 40?45. Talk with your health care provider about whether screening is right for you and, if so, how often you should be screened. Prostate cancer screening is done with blood tests and a digital rectal exam. During this exam, a health care provider uses a gloved finger to check prostate size. You may need to be screened for prostate cancer if: ? You have risk factors for prostate cancer, such as being or having a close family member with prostate cancer. ? You have had gene changes or a genetic condition that was passed on to you from a parent (inherited). These gene changes or genetic conditions include BRCA1 or BRCA2 gene mutations or Uriarte syndrome. ? You have symptoms of prostate cancer, such as problems urinating or problems getting or keeping an erection (erectile dysfunction). When you have been screened for prostate cancer, future screening may be recommended based on the results of your blood tests. Lung cancer Lung cancer screening is done with a CT scan that looks for abnormal changes in the lungs. Discuss lung cancer screening with your health care provider if you are 50?80 years old and if any of the following apply to you: ? You currently smoke. ? You used to smoke heavily. ? You have a smoking history of 1 pack of cigarettes a day for 20 years or 2 packs a day for 10 years. ? You have quit smoking within the past 15 years. You may need to be screened every year if you smoke heavily or if you used to smoke. Skin cancer Skin cancer screening is done by checking the skin for unusual moles or spots and any changes in existing moles. Your health care provider should check your skin for signs of skin cancer at every physical exam. You should check your skin every month and tell your health care provider right away if anything looks unusual. Men with a wejgkr-lwef-kokaao risk for skin cancer may want to see a multimedia educational specialist (drop wire aliner) for an annual body check. What are the benefits of screening? Cancer screening is done to look for cancer in the very early stages, before it spreads and becomes harder to treat and before you would start to notice symptoms. Finding cancer early improves the chances of success (more content not included)... [facility] 01-30-2024 History of Presen t illness Narrative Images from the original note were not included. Sarah Magaña is a 78 y.o. male presents with chief complaint of Diabetes and Medicare Annual Wellness Visit Initial HPI: History of Present Illness MEDICATIONS: Current Outpatient Medications Medication Instructions aspirin 81 mg, Oral, Daily atorvastatin (Lipitor) 40 MG tablet TAKE 1 TABLET ONCE DAILY (INCREASED DOSE) ciprofloxacin (CIPRO) 500 mg, Oral Docusate Calcium (STOOL SOFTENER PO) Stool Softener glipiZIDE (GLUCOTROL) 5 mg, Oral, Daily hydroCHLOROthiazide (MICROZIDE) 12.5 mg, Oral, Every morning hydrocortisone 2.5 % ointment APPLY TO AFFECTED AREA TWICE DAILY FOR 30 DAYS lisinopril 10 MG tablet TAKE 1 TABLET ONCE DAILY (REPLACES ENALAPRIL) metFORMIN (GLUCOPHAGE) 500 mg, Oral, 2 times daily with meals omeprazole (PRILOSEC) 40 mg, Oral, 2 times daily oxyCODONE-acetaminophen (Percocet) 5-325 MG tablet TAKE 1 TABLET BY MOUTH EVERY 6 HOURS NEEDED WITH FOOD OR MILK FOR PAIN . DO NOT EXCEED 4000 MG OF ACETAMINOPHEN PER 24 HOURS SURE COMFORT INS SYR 1CC/28G 28G X 1/2 1 ML misc tamsulosin (FLOMAX) 0.4 mg, Oral ALLERGIES: Allergies Allergen Reactions Bacillus Calmette Wicho Live Fever had flu like symptoms Iodinated Contrast Media Other Reaction(s): hives Iodine Unknown Penicillin G Other Reaction(s): hives Review of Systems Medical, Surgical, Family, and Social History reviewed. OBJECTIVE: Visit Vitals BP 122/70 Pulse 78 Temp 97.7 F Ht 6' Wt 207 lb SpO2 97% BMI 28.07 kg/m Smoking Status Former BSA 2.18 m BP Readings from Last 3 Encounters: 01/30/24 122/70 09/04/23 126/75 06/13/23 124/74 Wt Readings from Last 3 Encounters: 01/30/24 207 lb 09/04/23 203 lb 07/12/23 203 lb Physical Exam Physical Exam Results ASSESSMENT AND PLAN: Assessment & Plan Assessment/Plan Health Maintenance Due Topic Date Due Diabetes: Retinopathy Screening 03/06/2023 Diabetes: Hemoglobin A1C 10/12/2023 Medicare Annual Wellness (AWV) 01/03/2024 Diabetes: Urine Protein Screening 01/09/2024 documented in this encounter [facility] 07-12-2023 Hospital Discharg e instructions Follow Up Care 07/12/2023 09:35:04 With:ANA MARIA JENKINS, ALIX Torres Address: [place] [address]- When: only if needed [facility] [place] 07-01-2023 Hospital Discharg e instructions Patient Education 07/01/2023 13:06:41 How to Use an Incentive Spirometer How to Use an Incentive Spirometer An incentive spirometer is a tool that measures how well you are filling your lungs with each breath. Learning to take long, deep breaths using this tool can help you keep your lungs clear and active. This may help to reverse or lessen your chance of developing breathing (pulmonary) problems, especially infection. You may be asked to use a spirometer: After a surgery. If you have a lung problem or a history of smoking. After a long period of time when you have been unable to move or be active. If the spirometer includes an indicator to show the highest number that you have reached, your health care provider or respiratory therapist will help you set a goal. Keep a log of your progress as told by your health care provider. What are the risks? Breathing too quickly may cause dizziness or cause you to pass out. Take your time so you do not get dizzy or light-headed. If you are in pain, you may need to take pain medicine before doing incentive spirometry. It is harder to take a deep breath if you are having pain. How to use your incentive spirometer 1.Sit up on the edge of your bed or on a chair. 2.Hold the incentive spirometer so that it is in an upright position. 3.Before you use the spirometer, breathe out normally. 4.Place the mouthpiece in your mouth. Make sure your lips are closed tightly around it. 5.Breathe in slowly and as deeply as you can through your mouth, causing the piston or the ball to rise toward the top of the chamber. 6.Hold your breath for 3 5 seconds, or for as long as possible. If the spirometer includes a strength and conditioning coach indicator, use this to guide you in breathing. Slow down your breathing if the indicator goes above the marked areas. 7.Remove the mouthpiece from your mouth and breathe out normally. The piston or ball will return to the bottom of the chamber. 8.Rest for a few seconds, then repeat the steps 10 or more times. Take your time and take a few normal breaths between deep breaths so that you do not get dizzy or light-headed. Do this every 1 2 hours when you are awake. 9.If the spirometer includes a goal marker to show the highest number you have reached (best effort), use this as a goal to work toward during each repetition. 10.After each set of 10 deep breaths, cough a few times. This will help to make sure that your lungs are clear. If you have an incision on your chest or abdomen from surgery, place a pillow or a rolled-up towel firmly against the incision when you cough. This can help to reduce pain while taking deep breaths and coughing. General tips When you are able to get out of bed: ?Walk around often. ?Continue to take deep breaths and cough in order to clear your lungs. Keep using the incentive spirometer until your health care provider says it is okay to stop using it. If you have been in the hospital, you may be told to keep using the spirometer at home. Contact a health care provider if: You are having difficulty using the spirometer. You have trouble using the spirometer as often as instructed. Your pain medicine is not giving enough relief for you to use the spirometer as told. You have a fever. Get help right away if: You develop shortness of breath. You develop a cough with bloody mucus from the lungs. You have fluid or blood coming from an incision site after you cough. Summary An incentive spirometer is a tool that can help you learn to take long, deep breaths to keep your lungs clear and active. You may be asked to use a spirometer after a surgery, if you have a lung problem or a history of smoking, or if you have been inactive for a long period of time. Use your incentive spirometer as instructed every 1 2 hours while you are awake. If you have an incision on your chest or abdomen, place a pillow or a rolled-up towel firmly against your incision when you cough. This will help to reduce pain. Get help right away if you have shortness of breath, you cough up bloody mucus, or blood comes from your incision when you cough. This information is not intended to replace advice given to you by your health care provider. Make sure you discuss any questions you have with your health care provider. Document Revised: 11/21/2020 Document Reviewed: 11/21/2020 [employer] Patient Education 2022 [employer] 07/01/2023 13:06:40 Post Op Patient Instructions - FT (CUSTOM) Follow Up Care 06/21/2023 13:56:36 With:ALIX Pretty Address: [address], [facility] [address] [address]- Business (1) When: Unknown Comments:Call for any problems.Call for followup appointment [facility] 01-21-2023 Evaluation + Plan note Future Scheduled TestsEcho Transthoracic Complete 01/21/[address] [facility] 02-20-2022 Hospital Discharg e instructions Follow Up Care 02/20/2022 14:37:23 With:Loco JENKINS, Kalen De La Torre Address: [address] [place] [address]- [phone] When: Unknown [facility] 01-25-2022 Evaluation + Plan note Extrac constantin from: Title:APSO Note Author:ANTONINA JENKINS, Karina Date: 1. Expressive aphasia (R47.0 1: Aphasia) - rule out TIA/CVA, could be a complicated migraine - telemetry - ASA, fasting lipid profile - MRI/MRA brain, MRA neck, echo with saline bubbles -PT/OT/ST - consult neurology Ordered: 2. Headache (R51.9: Headache, unspecified) - could be complicated migraine - magnesium 2 grams IV q12 x 2 doses, depacon 500 mg IV q8 hours x 3 doses - headache resolved -neurology consulted 3. Diabetes (E11.9: Type 2 diabetes mellitus without complications) -SSI -glipizide - hold metformin 4. Hypertension (I10: Essential (primary) hypertension) - enalapril,hctz 5. Hyperlipidemia (E78.5: Hyperlipidemia, unspecified) -atorvastatin 6. Chronic GERD (K21.9: Gastro-esophageal reflux disease without esophagitis) -omeprazole 7. No contraindication to deep vein thrombosis (DVT) prophylaxis (Z78.9: Other specified health status) - SCDs,heparin subcutaneous Orders: acetaminophen, 650 mg = 2 tab(s), Tab, Oral, q6hr PRN Pain, Routine, Start date 01/24/22 16:48:00 EDT, 01/24/22 16:48:00 EDT Al hydroxide/Mg hydroxide/simethicone, 30 mL, Susp-Oral, Oral, q6hr PRN Indigestion, STAT, Start date 01/24/22 16:48:00 EDT aspirin, 81 mg = 1 tab(s), Tab-EC, Oral, Daily, Routine, Start date 01/25/22 9:00:00 EDT, 01/24/22 16:48:00 EDT glucose, 40 mL, Soln-IV, IV Push, Once PRN Blood glucose, STAT, Start date 01/24/22 17:13:00 EDT heparin, 5,000 unit(s) = 1 mL, Injection, SubCutaneous, BID, Routine, Start date 01/24/22 21:00:00 EDT insulin lispro, 0-10 Units, Injection-Insulin, SubCutaneous, QIDACHS, Routine, Start date 01/24/22 21:00:00 EDT ketorolac, 30 mg = 1 mL, Injection, IV Push, Once, Stop date 01/24/22 19:00:00 EDT, Routine, Start date 01/24/22 19:00:00 EDT, 01/24/22 18:38:00 EDT magnesium hydroxide, 30 mL, Susp-Oral, Oral, q6hr PRN Constipation, STAT, Start date 01/24/22 16:48:00 EDT magnesium sulfate + Generic Diluent 50 mL, 2 gram = 50 mL, Soln-IV, IV Piggyback, q12hr for 2 dose(s), Stop date 01/25/22 18:59:00 EDT, Routine, Start date 01/24/22 18:40:00 EDT, 25 mL/hr, Infuse over 2 hour(s) ondansetron, 4 mg = 2 mL, Injection, IV Push, q6hr PRN Nausea, Routine, Start date 01/24/22 16:48:00 EDT, 01/24/22 16:48:00 EDT valproic acid + Sodium Chloride 0.9% intravenous solution 50 mL, 500 mg = 5 mL, Injection, IV Piggyback, q8hrFT for 3 dose(s), Stop date 01/25/22 21:59:00 EDT, Routine, Start date 01/24/22 23:00:00 EDT, 55 mL/hr, Infuse over 60 minute(s) Ambulate with Assistance Below the Knee Intermittent Pneumatic Compression Device Capillary Glucose POC Capillary Glucose POC Capillary Glucose POC Cardiac Diet Cardiac Monitoring Communication Order Communication Order Physician to Nursing Consult to Neurology Dysphagia Screen Echo w/ Saline Bubbles Evaluate Need For Continued Telemetry HgbA1c Hypoglycemia Protocol Responsive Patient Hypoglycemia Protocol Unresponsive Patient Incentive Spirometry Lipid Panel MRA Head w/o Contrast MRA Neck w/o Contrast MRI Brain w/o Contrast Neurological Assessment Neurological Assessment Occupational Therapy Evaluate Patient, Develop a Plan of Care and Implement Plan Oxygen Protocol Physical Therapy Evaluate Patient, Develop a Plan of Care and Implement Plan Place in Status Pulse Oximetry Routine Capillary Glucose POC Speech Language Pathology Evaluate Patient, Develop a Plan of Care and Implement Plan Stroke Education Stroke Quality Measures Vital Signs Weight Extracted from: Title:Consult Note-neurology Author:Yaa SIERRA N ichole Date:01/25/22 The patient is a 6-year-old right-handed white male with a history of hypertension, diabetes mellitus, hyperlipidemia, who was admitted to the hospital with sudden onset of confusion manifest as word finding difficulties and staring episodes. Possible etiologies include cerebral ischemia or transient ischemic attack secondary to artery to artery embolus, cerebral artery thrombosis, or cardioembolic event. I cannot exclude cerebral hypoperfusion from intracranial or extracranial cerebral artery stenosis contributing to the patient's symptoms. I cannot completely exclude underlying partial complex seizure contributing to a component of the patient's symptoms. Given the patient's headache associated with recent events I cannot exclude a complicated migraine contributing to a component of his symptoms. Due to the high morbidity and mortality associated with stroke the patient is admitted to the hospital for further workup and evaluation. -I have personally reviewed the MRI of the brain which does not reveal evidence of cerebral ischemia or other intracranial process which may be contributing to the patient's symptoms -I have personally reviewed the MR angiogram of the brain neck which does not reveal evidence of extracranial or intracranial cerebral artery stenosis -I recommend obtaining a cardiac echo to assess for any hypokinesis, akinesis, valve disease, or cardiac thrombus which may contribute to a cardioembolic event -I recommend continuing the patient on telemetry to assess for a cardiac arrhythmia which may contribute to a cardioembolic event -I recommend aspirin 81 mg daily for secondary stroke prevention -I recommend to continue monitoring the patient's blood pressure to keep them normotensive -I recommend to continue monitoring the patient's blood sugar to keep them normoglycemic -I recommend obtaining a lipid panel and hemoglobin A1c to assess the patient's stroke risk factors -I recommend speech therapy assessed the patient for swallow evaluation and therapy needs -I recommend physical therapy and occupational therapy assessed the patient for therapy and rehabilitation needs -I recommend DVT prevention with SCD stockings or an equivalent -I counseled the patient on stroke signs and symptoms and advised them to alert nursing should save developed these symptoms while in the hospital and in the future go immediately to the emergency room -I counseled the patient on the possible diagnoses, prognosis, evaluation, and treatment options. I answered all questions. -I discussed the above recommendations with the hospitalist Dr. Ness 1. Expressive aphasia (R47.01: Aphasia) 2. Headache (R51.9: Headache, unspecified) 3. Diabetes (E11.9: Type 2 diabetes mellitus without complications) 4. Hypertension (I10: Essential (primary) hypertension) 5. Hyperlipidemia (E78.5: Hyperlipidemia, unspecified) 6. Chronic GERD (K21.9: Gastro-esophageal reflux disease without esophagitis) 7. No contraindication to deep vein thrombosis (DVT) prophylaxis (Z78.9: Other specified health status) Extracted from: Title:Admission H & P Author:Karina NESS MD Date :01/24/22 1. Expressive aphasia (R47.0 1: Aphasia) - rule out TIA/CVA, could be a complicated migraine - telemetry - ASA, fasting lipid profile - MRI/MRA brain, MRA neck, echo with saline bubbles -PT/OT/ST - consult neurology 2. Headache (R51.9: Headache, unspecified) - could be complicated migraine - magnesium 2 grams IV q12 x 2 doses, depacon 500 mg IV q8 hours x 3 doses -neurology consulted 3. Diabetes (E11.9: Type 2 diabetes mellitus without complications) -SSI -glipizide - hold metformin 4. Hypertension (I10: Essential (primary) hypertension) - enalapril,hctz 5. Hyperlipidemia (E78.5: Hyperlipidemia, unspecified) -atorvastatin 6. Chronic GERD (K21.9: Gastro-esophageal reflux disease without esophagitis) -omeprazole 7. No contraindication to deep vein thrombosis (DVT) prophylaxis (Z78.9: Other specified health status) - SCDs,heparin subcutaneous pt will be admitted for observation possible discharge in next 24 hours Orders: acetaminophen, 650 mg = 2 tab(s), Tab, Oral, q6hr PRN Pain, Routine, Start date 01/24/22 16:48:00 EDT, 01/24/22 16:48:00 EDT Al hydroxide/Mg hydroxide/simethicone, 30 mL, Susp-Oral, Oral, q6hr PRN Indigestion, STAT, Start date 01/24/22 16:48:00 EDT aspirin, 81 mg = 1 tab(s), Tab-EC, Oral, Daily, Routine, Start date 01/25/22 9:00:00 EDT, 01/24/22 16:48:00 EDT glucose, 40 mL, Soln-IV, IV Push, Once PRN Blood glucose, STAT, Start date 01/24/22 17:13:00 EDT heparin, 5,000 unit(s) = 1 mL, Injection, SubCutaneous, BID, Routine, Start date 01/24/22 21:00:00 EDT insulin lispro, 0-10 Units, Injection-Insulin, SubCutaneous, QIDACHS, Routine, Start date 01/24/22 21:00:00 EDT ketorolac, 30 mg = 1 mL, Injection, IV Push, Once, Stop date 01/24/22 19:00:00 EDT, Routine, Start date 01/24/22 19:00:00 EDT, 01/24/22 18:38:00 EDT magnesium hydroxide, 30 mL, Susp-Oral, Oral, q6hr PRN Constipation, STAT, Start date 01/24/22 16:48:00 EDT magnesium sulfate + Generic Diluent 50 mL, 2 gram = 50 mL, Soln-IV, IV Piggyback, q12hr for 2 dose(s), Stop date 01/25/22 18:39:00 EDT, Routine, Start date 01/24/22 18:40:00 EDT, 25 mL/hr, Infuse over 2 hour(s) ondansetron, 4 mg = 2 mL, Injection, IV Push, q6hr PRN Nausea, Routine, Start date 01/24/22 16:48:00 EDT, 01/24/22 16:48:00 EDT valproic acid + Sodium Chloride 0.9% intravenous solution 50 mL, 500 mg = 5 mL, Injection, IV Piggyback, q8hrFT for 3 dose(s), Stop date 01/25/22 15:59:00 EDT, Routine, Start date 01/24/22 19:00:00 EDT, 55 mL/hr, Infuse over 60 minute(s) Ambulate with Assistance Below the Knee Intermittent Pneumatic Compression Device Cardiac Diet Cardiac Monitoring Communication Order Communication Order Physician to Nursing Consult to Neurology Dysphagia Screen Echo w/ Saline Bubbles Evaluate Need For Continued Telemetry [id number] Hypoglycemia Protocol Responsive Patient Hypoglycemia Protocol Unresponsive Patient Incentive Spirometry Lipid Panel MRA Head w/o Contrast MRA Neck w/o Contrast MRI Brain w/o Contrast Neurological Assessment Neurological Assessment Occupational Therapy Evaluate Patient, Develop a Plan of Care and Implement Plan Oxygen Protocol Physical Therapy Evaluate Patient, Develop a Plan of Care and Implement Plan Place in Status Pulse Oximetry Routine Capillary Glucose POC Speech Language Pathology Evaluate Patient, Develop a Plan of Care and Implement Plan Stroke Education Stroke Quality Measures Vital Signs Weight Extracted from: Title:ED Note Author:Elsy Frazier Date:01/24/22 1. Stroke-like symptom (R29. 90: Unspecified symptoms and signs involving the nervous system) Orders: Automated Diff Basic Metabolic Panel CBC w/ Auto Diff [place] Stroke Scale Communication Order Physician to Nursing Continuous Pulse Oximetry CT Head or Brain w/o Contrast CVA/TIA Inclusion/Exclusion Criteria ECG 12 Lead Adult ED Cardiac Monitoring eGFR NIH Stroke Scale Oxygen Therapy PT & PTT Routine Capillary Glucose POC Saline Lock Insert Stroke Quality Measures Troponin 0 Hr. Troponin 3 Hr. Troponin 6 Hr. Troponin 9 Hr. UA With Cult Reflex Vital Signs XR Chest Single View [facility]05-12-2022 Hospital Discharge instructions Patient Education 01/25/2022 08:45:46 Core Measures: Stroke (Cerebrovascular Accident) [facility], (Custom) Stroke (Cerebrovascular Accident) A stroke is acute of brain tissue, and it is a neurologic emergency. A stroke can cause permanent loss of function of the central nervous system (brain). If the symptoms of a stroke end withoutcomplications in 24 hours, it is diagnosed as a transient ischemic attack (TIA). If the symptoms are not resolved within 24 hours, it is defined as a stroke. CAUSES A stroke is caused by a decrease of oxygen supply to an area of your brain. It is usually the result of a small blood clot or hardening of the arteries. Blockages in, or damage to, the carotid arteries leading to the brain can also cause a stroke. Bleeding in the brain can cause, or accompany, a stroke. SYMPTOMS These symptoms usually develop suddenly (or may be newly present upon awakening from sleep): Loss of vision. Double vision. Confusion. Numbness or weakness on one side of the face or body. Inability to speak (aphasia). DIAGNOSIS Your caregiver can often determine the presence or absence of a stroke based on your symptoms, history, and examination. A CT scan of the brain is usually performed to confirm the stroke, look for causes, and determine the severity. Other tests may be done to find the cause of the stroke, including: An EKG and heart monitoring. An echocardiogram (ultrasound evaluation of the heart). An ultrasound evaluation of your carotid arteries. Determination of blood oxygen level and blood tests. PREVENTION The likelihood of a stroke can be decreased by appropriate treatment of high blood pressure, high cholesterol, diabetes, and by stopping smoking. RISK FACTORS: If you have been told by your doctor or nurse practitioner that you have any of the following risk factors for stroke, work with your health manager long term care to control them. High Blood Pressure: High blood pressure is one of the main causes of stroke. It is the most important risk factor to control. Take your blood pressure medication, lose weight, increase your activity, and limit your salt intake to help control your blood pressure.Take your your blood pressure and write it down and then take them to your next doctor's appointment. Smoking: If you smoke: QUIT! We can help. Please call [facility]essation [facility] at [phone] ([facility]), or [phone], ext. [phone] Diabetes: Work with your healthcare professional to keep your blood sugar under control. Check yourblood sugar and take the results to your next doctor's visit. Take your medications as directed. Eating a healthy diet and exercising will also help keep your diabetes under control. For information on [facility] please call, . Carotid or other Artery Diseases: The carotid arteries in your neck carry blood to the brain. A stroke can be caused by a blood clot blocking an artery that has been damaged by a fatty buildup insidethe artery wall. Discuss ways to manage this with your health care provider. Atrial Fibrillation (A Fib): In A fib, your heart does not have a normal beat. This may allow clotsto form and puts you at a greater risk for having a stroke. Work with your health care provider to control your A fib. Your doctor may order special medication that helps prevent clots from forming. High blood cholesterol or high blood fats: High cholesterol increases your risk of stroke. Exerciseregularly, but talk to your health care provider first. A diet low in fat and cholesterol can help.If you have any questions about a low fat, low cholesterol diet, you can call our [facility] antisqueak filler at [phone] Ext. [phone]. The goal for total cholesterol is less than 200, and for LDL or thebad cholesterol is less than 100. Lifestyle Management: You increase your risk of stroke if you are overweight or obese, are not veryactive, or drink too much alcohol. Enjoy a diet rich in fruits and vegetables. Exercise regularly and drink alcohol in moderation or no more than two drinks a day for men and no more than one drink aday for non- women, or don't drink at all. This will help decrease your risk of stroke. Oral Contraceptives: Taking control pills or the pill can be a risk factor for stroke especially if you smoke. Discuss using the oral contraceptives and your risk of stroke with your health manager long term care. TREATMENT TIME IS OF THE ESSENCE! Medications to dissolve a blood clot can only be used within four and a half hours of the onset of symptoms. After that time, treatment of stroke depends on duration of symptoms, severity, and cause. Medications and diet measures may be used to address diabetes, high blood pr essure, and other risk factors. Physical therapy, speech therapy, and occupational therapy specialists will assess you and work to improve any functions impaired by the stroke. Measures will be takento prevent short and intermediate card tender complications, including aspiration pneumonia, blood clots in the leg s, bedsores, and falls. HOME CARE INSTRUCTIONS Care at home after a stroke can be complicated. Medications Blood thinners may be used to prevent another stroke. Blood thinners need to be used exactly as instructed. Medicines may also be used to control risk factors for a stroke. Be sure you understand all your medication instructions. It is very important to not run out of your medicine. Getmore while you still have a one-week supply. Do not stop taking your medicine without speaking to your healthcare professional. Take all of your medications or an updated list of your medications to all of your doctor's appointments. Physical, occupational, and speech therapy Ongoing therapy is often necessary to maximize recovery after a stroke. If you have been advised to use a walker or a cane, use it at all times. Be sure youkeep your therapy appointments. Diet Certain diets may be prescribed to address high blood pressure, high cholesterol, or diabetes.Foods may need to be a special consistency (soft, pureed, small bites) to avoid food going into your lungs or choking. Home safety A safe home environment is important to reduce the risk of falls. Your caregiver may arrange for specialists to evaluate your home. Grab bars in the bedroom and bathroom are often important. Your caregiver may arrange for special equipment to be used at home, such as raised toilets and a seat for the shower. It s important to know and control your risk factors, but it is also important to recognize the signs and symptoms of stroke/TIA and know what to do: Call 911 if any of these things happen: Sudden numbness or weakness of the face, arm, or leg especially on one side of the body. Sudden confusion, trouble speaking, or understanding. Sudden trouble seeing in one or both eyes. Sudden trouble walking, dizziness, loss of balance or coordination Sudden severe headache with no known cause * It is very important for you to follow-up with your Primary Care Doctor and your Neurologist after you go home. Make sure that you keep your doctor visits. Remember: TIME LOST is BRAIN LOST Resources: for more information on strokes, log onto www.[employer].com or www.strokeassociation.org or call the [place] [employer] at . Revised 09/2018 Follow Up Care 01/24/2022 14:20:25 With:Kolton Rosas Address: [facility] [address] [place] [address]- Business (1) When:02/08/2022 10:40:00 With:Ron Mcnamara Address: [address] [facility] [place] [address]- Business (1) When:02/02/2022 10:30:[address] [facility]04-20-2022 Evaluation + Plan note Diagnostic Tests Pending * [facility] Fish [facility] Urine Cyto ([facility]) 01/03/[address] [facility] [id number] Hospital Discharge instructions Patient Education 01/03/2022 08:01:54 Erectile Dysfunction Erectile Dysfunction Erectile dysfunction (ED) is the inability to get or keep an erection in order to have sexual intercourse. Erectile dysfunction may include: Inability to get an erection. Lack of enough hardness of the erection to allow penetration. Loss of the erection before sex is finished. What are the causes? This condition may be caused by: Certain medicines, such as: ?Pain relievers. ?Antihistamines. ?Antidepressants. ?Blood pressure medicines. ?Water pills (diuretics). ?Ulcer medicines. ?Muscle relaxants. ?Drugs. Excessive drinking. Psychological causes, such as: ?Anxiety. ?Depression. ?Sadness. ?Exhaustion. ?Performance fear. ?Stress. Physical causes, such as: ?Artery problems. This may include diabetes, smoking, liver disease, or atherosclerosis. ?High blood pressure. ?Hormonal problems, such as low testosterone. ?Obesity. ?Nerve problems. This may include back or pelvic injuries, diabetes mellitus, multiple sclerosis, or Parkinson disease. What are the signs or symptoms? Symptoms of this condition include: Inability to get an erection. Lack of enough hardness of the erection to allow penetration. Loss of the erection before sex is finished. Normal erections at some times, but with frequent unsatisfactory episodes. Low sexual satisfaction in either partner due to erection problems. A curved penis occurring with erection. The curve may cause pain or the penis may be too curved to allow for intercourse. Never having nighttime erections. How is this diagnosed? This condition is often diagnosed by: Performing a physical exam to find other diseases or specific problems with the penis. Asking you detailed questions about the problem. Performing blood tests to check for diabetes mellitus or to measure hormone levels. Performing other tests to check for underlying health conditions. Performing an ultrasound exam to check for scarring. Performing a test to check blood flow to the penis. Doing a sleep study at home to measure nighttime erections. How is this treated? This condition may be treated by: Medicine taken by mouth to help you achieve an erection (oral medicine). Hormone replacement therapy to replace low testosterone levels. Medicine that is injected into the penis. Your health care provider may instruct you how to give yourself these injections at home. Vacuum pump. This is a pump with a ring on it. The pump and ring are placed on the penis and used to create pressure that helps the penis become erect. Penile implant surgery. In this procedure, you may receive: ?An inflatable implant. This consists of cylinders, a pump, and a reservoir. The cylinders can be inflated with a fluid that helps to create an erection, and they can be deflated after intercourse. ?A semi-rigid implant. This consists of two silicone rubber rods. The rods provide some rigidity. They are also flexible, so the penis can both curve downward in its normal position and become straight for sexual intercourse. Blood vessel surgery, to improve blood flow to the penis. During this procedure, a blood vessel from a different part of the body is placed into the penis to allow blood to flow around (bypass) damaged or blocked blood vessels. Lifestyle changes, such as exercising more, losing weight, and quitting smoking. Follow these instructions at home: Medicines Take cotd-lef-eyrolra and prescription medicines only as told by your health care provider. Do not increase the dosage without first discussing it with your health care provider. If you are using self-injections, perform injections as directed by your health care provider. Makesure to avoid any veins that are on the surface of the penis. After giving an injection, apply pressure to the injection site for 5 minutes. General instructions Exercise regularly, as directed by your health care provider. Work with your health care provider to lose weight, if needed. Do not use any products that contain nicotine or tobacco, such as cigarettes and e-cigarettes. If you need help quitting, ask your health care provider. Before using a vacuum pump, read the instructions that come with the pump and discuss any questionswith your health care provider. Keep all follow-up visits as told by your health care provider. This is important. Contact a health care provider if: You feel nauseous. You vomit. Get help right away if: You are taking oral or injectable medicines and you have an erection that lasts longer than 4 hours. If your health care provider is unavailable, go to the nearest emergency room for evaluation. An erection that lasts much longer than 4 hours can result in permanent damage to your penis. You have severe pain in your groin or abdomen. You develop redness or severe swelling of your penis. You have redness spreading up into your groin or lower abdomen. You are unable to urinate. You experience chest pain or a rapid heart beat (palpitations) after taking oral medicines. Summary Erectile dysfunction (ED) is the inability to get or keep an erection during sexual intercourse. This problem can usually be treated successfully. This condition is diagnosed based on a physical exam, your symptoms, and tests to determine the cause. Treatment varies depending on the cause, and may include medicines, hormone therapy, surgery, orvacuum pump. You may need follow-up visits to make sure that you are using your medicines or devices correctly. Get help right away if you are taking or injecting medicines and you have an erection that lasts longer than 4 hours. This information is not intended to replace advice given to you by your health care provider. Make sure you discuss any questions you have with your health care provider. Document Released: 08/30/2001 Document Revised: 08/15/2018 Document Reviewed: 09/18/2017 [employer] Patient Education 2020 [employer]. Follow Up Care 12/21/2021 13:26:24 With:ODILON JENKINS, Preethi Arango, URL Address: [facility] [address] [place] [address]- [phone] When: Unknown [facility] Evaluation + Plan note Future Appointments Appointment Date:08/22/2022 11:15:00 AM Scheduled Provider:[facility]an [facility] Future Appointments Appointment Date:08/20/2022 08:00:00 AM Scheduled Provider: Location:[facility] Appointment Type:URO Nurse Visit Appointment Date:08/22/2022 11:15:00 AM Scheduled Provider:Kalen Adan MD Location:.[facility]iology Clinic Appointment Type:Cardiology Follow Up (FT) [facility] Evaluation + Plan note Future Appointments Appointment Date:08/20/2022 08:00:00 AM Scheduled Provider: Location:[facility] Appointment Type:URO Nurse Visit Appointment Date:08/22/2022 11:15:00 AM Scheduled Provider:Kalen Adan MD Location:.Cardiology Clinic Appointment Type:Cardiology Follow Up (FT) Diagnostic Tests Pending * Urine Culture [facility] [facility] [address] Future Appointments Appointment Date:08/21/2023 08:30:00 AM Scheduled Provider: Location:[facility] Appointment Type:URO Nurse Visit Future Scheduled Tests Radiology* Echo Transthoracic Complete 01/21/23 [facility] [place] Evaluation note* Diagnosis Screening for hypercholesterolemia- Primary Screening for lipoid disorders Type 2 diabetes mellitus without complication, without long-term current use of insulin ([facility]/HCC) High risk medication use Aortic valve stenosis, etiology of cardiac valve disease unspecified Primary hypertension (CMS/HCC) Unspecified essential hypertension documented in this encounter [facility] HealthcareEvaluation note* Diagnosis Aortic valve stenosis, etiology of cardiac valve disease unspecified Type 2 diabetes mellitus without complication, without long-term current use of insulin (CMS/HCC) Primary hypertension (CMS/HCC) Unspecified essential hypertension Gastroesophageal reflux disease without esophagitis Esophageal reflux documented in this encounter [facility]* Diagnosis Diabetes mellitus without complication (CMS/HCC) Type II or unspecified type diabetes mellitus without mention of complication, not stated as uncontrolled documented in this encounter [facility]* Diagnosis Encounter for counseling for travel- Primary documented in this encounter [facility]* Diagnosis Diabetes mellitus without complication (CMS/HCC)- Primary Type II or unspecified type diabetes mellitus without mention of complication, not stated as uncontrolled Hyperglycemia Other abnormal glucose Primary hypertension (CMS/HCC) Unspecified essential hypertension History of bladder cancer Personal history of malignant neoplasm of bladder Type 2 diabetes mellitus with diabetic cataract (CMS/HCC) Type II or unspecified type diabetes mellitus with ophthalmic manifestations, not stated as uncontrolled 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 Discharge instructions No data available for this section [facility] No data available for this section [facility] Summary Purpose Family History No Family History Records FoundNo Family History Records Found No data available for this section No data available for this section No data available for this section No data available for this section No Family History Records FoundNo Family History Records FoundNo Family History Records FoundNo Family History Records Found Advance Directives No Advanced Directives Records FoundNo Advanced Directives Records FoundNo Advanced Directives Records FoundNo Advanced Directives Records FoundNo Advanced Directives Records FoundNo Advanced Directives Records Found Additional Source Comments (unrecognized sect ion and content) No Status Records FoundNo Status Records FoundNo Status Records FoundNo Status Records FoundNo Status Records FoundNo Status Records Found INFORMATION SOURCE (unrecogn ized section and content) DATE CREATED AUTHOR 10/11/2021 [facility] DATE CREATED AUTHOR AUTHOR'S ORGANIZ ATION 08/27/2022 [facility] DATE CREATED AUTHOR AUTHOR'S ORGANIZ ATION 09/01/2024 [facility] DATE CREATED AUTHOR AUTHOR'S ORGANIZ ATION 10/07/2024 [facility] EPIC DATE CREATED AUTHOR AUTHOR'S ORGANIZ ATION 11/07/2024 [facility] DATE CREATED AUTHOR AUTHOR'S ORGANIZ ATION 11/30/2024 [facility] Care Team (unrecognized sect ion and content) Triage Specialist Relationship Specialty Start Date End Date Ron Mcnamara MD [address] [place] [address] PCP - ACO Reach 02/07/23 Ron Mcnamara MD [address] [place] [address] PCP - General Family Medicine 02/25/23 Triage Specialist Relationship Specialty Start Date End Date Ron Mcnamara MD [address] [place] [address] PCP - ACO Reach 02/07/23 Ron Mcnamara MD [address] [place] [address] PCP - General Family Medicine 02/25/23 Triage Specialist Relationship Specialty Start Date End Date Ron Mcnamara MD [address] [place] [address] PCP - ACO Reach 02/07/23 Ron Mcnamara MD [address] [place] [address] PCP - General Family Medicine 02/25/23 Triage Specialist Relationship Specialty Start Date End Date Ron Mcnamara MD [address] [place] [address] PCP - ACO Reach 02/07/23 Ron Mcnamara MD [address] [place] [address] PCP - General Family Medicine 02/25/23 Triage Specialist Relationship Specialty Start Date End Date Ron Mcnamara MD [address] [place] [address] PCP - ACO Reach 02/07/23 Ron Mcnamara MD [address] [place] [address] PCP - General Family Medicine 02/25/23 Reason for Visit (unrecogniz ed section and content) Reason Comments Diabetes Medicare Annual Wellness Visit Initial Reason Onset Date Comments Med Refill 08/26/2024 Reason Comments Follow-up Foot Injury Patient reporting is julissa on pads of both feet Diabetes Reason Onset Date Comments Care Coordination 06/04/2024 Reason Comments Diabetes FOR RECORDS PERTAINING TO PATIENTS WHO ARE OR HAVE BEEN ENROLLED IN A CHEMICAL DEPENDENCY/SUBSTANCEABUSE PROGRAM, SOME INFORMATION MAY BE OMITTED. This clinical summary was aggregated from multiple sources. Caution should be exercised in using it in the provision of clinical care. This summary normalizes information from multiple sources, and as a consequence, information in this document may materially change the coding, format and clinical context of patient data. In addition, data may be omitted in some cases. CLINICAL DECISIONS SHOULD BE BASED ON THE PRIMARY CLINICAL RECORDS. [employer] [facility]. provides no warranty or guarantee of the accuracy or completeness of information in this document.
[2024-12-14 10:46] LABS: Basophils Absolute Auto 0.1 10^3/uL (0.0-0.1); Basophils Percent Auto 1.3 % (0.2-2.0); Eosinophils Absolute Auto 0.3 10^3/uL (0.0-0.7); Hemoglobin 13.7 g/dL (14.0-18.0); Immature Granulocytes Abs Auto 0.02 10^3/uL (0.00-0.03); Immature Granulocytes Pct Auto 0.3 % (0.0-0.5); Lymphocytes Percent Auto 29.4 % (20.5-60.0); Mean Corpuscular HGB Conc 34.3 g/dL (29.9-35.2); Mean Corpuscular Hemoglobin 32.2 pg (25.9-34.0); Mean Corpuscular Volume 94.1 fL (80.0-94.0); Mean Platelet Volume 10.1 fL (9.5-13.5); Monocytes Absolute Auto 0.5 10^3/uL (0.3-0.8); Monocytes Percent Auto 7.6 % (1.7-12.0); Neutrophils Percent Auto 57.4 % (43.0-75.0); Platelet Count 224 10^3/uL (150-450); Red Blood Count 4.25 10^6/uL (4.70-6.10); Red Cell Distribution Width 12.5 % (11.0-15.0); White Blood Count 6.9 10^3/uL (4.0-11.0)
--- NOTE | 2024-12-14 10:49 | P.GSHP_ITS ---
History of Present Illness History of Present Illness Chief complaint: Bladder Tumor/Lesion Narrative: Patient presents for presurgical testing. The patient reports a history of bladder tumors. He states he had a cystoscopy done in August. He denies urinary complaints at this time. Review of Systems ROS Narrative REVIEW OF SYSTEMS: Constitutional: No fever, chills, weakness ENT: No sore throat or epistaxis Cardiovascular: No edema, chest pain, palpitations, or activity intolerance Respiratory: No shortness of breath, cough, or wheezing Musculoskeletal: No joint pain or swelling Gastrointestinal: No abdominal pain, constipation, diarrhea, or vomiting Genitourinary: No dysuria or hematuria Neurological: No numbness, tingling, weakness, or headache Psychiatric: No mood changes PFSH [facility] Medical History (Updated 06/14/23 @ 09:01 by Tricia Archer NP) Erectile dysfunction ?N52.9 - Male erectile dysfunction, unspecified (ICD-10) Aortic stenosis ?I35.0 - Nonrheumatic aortic (valve) stenosis (ICD-10) S/P extracorporeal shock wave therapy (2003) ?Z98.890 - Other specified postprocedural states (ICD-10) Cataracts, bilateral ?H26.9 - Unspecified cataract (ICD-10) Arthritis ?M19.90 - Unspecified osteoarthritis, unspecified site (ICD-10) Neck pain ?M54.2 - Cervicalgia (ICD-10) Heart murmur ?R01.1 - Cardiac murmur, unspecified (ICD-10) Aortic insufficiency ?I35.1 - Nonrheumatic aortic (valve) insufficiency (ICD-10) S/P extracorporeal shock wave therapy ?Z98.890 - Other specified postprocedural states (ICD-10) Calcaneal spur ?M77.30 - Calcaneal spur, unspecified foot (ICD-10) CVA (cerebral vascular accident) (2021) ?I63.9 - Cerebral infarction, unspecified (ICD-10) Migraine ?G43.909 - Migraine, unspecified, not intractable, without status migrainosus (ICD-10) Bladder cancer ?C67.9 - Malignant neoplasm of bladder, unspecified (ICD-10) Bladder tumor ?D49.4 - Neoplasm of unspecified behavior of bladder (ICD-10) Kidney stones ?N20.0 - Calculus of kidney (ICD-10) Hypertension ?I10 - Essential (primary) hypertension (ICD-10) High cholesterol ?E78.00 - Pure hypercholesterolemia, unspecified (ICD-10) Diabetes ?E11.9 - Type 2 diabetes mellitus without complications (ICD-10) Surgical History (Updated 12/14/24 @ 10:20 by Tricia Archer NP) H/O left inguinal hernia repair (~2023) ?Z98.890 - Other specified postprocedural states (ICD-10) ?Z87.19 - Personal history of other diseases of the digestive system (ICD-10) H/O transurethral resection of bladder tumor (TURBT) (06/20/23) ?Z98.890 - Other specified postprocedural states (ICD-10) ?Z86.03 - Personal history of neoplasm of uncertain behavior (ICD-10) H/O transurethral resection of bladder tumor (TURBT) (2001) ?Z98.890 - Other specified postprocedural states (ICD-10) ?Z86.03 - Personal history of neoplasm of uncertain behavior (ICD-10) H/O transurethral resection of bladder tumor (TURBT) (2009) ?Z98.890 - Other specified postprocedural states (ICD-10) ?Z86.03 - Personal history of neoplasm of uncertain behavior (ICD-10) H/O transurethral resection of bladder tumor (TURBT) (2009) ?Z98.890 - Other specified postprocedural states (ICD-10) ?Z86.03 - Personal history of neoplasm of uncertain behavior (ICD-10) H/O eye surgery ?Z98.890 - Other specified postprocedural states (ICD-10) History of tonsillectomy ?Z90.89 - Acquired absence of other organs (ICD-10) History of dental surgery ?Z92.89 - Personal history of other medical treatment (ICD-10) H/O transurethral resection of bladder tumor (TURBT) (12/16/14) ?Z98.890 - Other specified postprocedural states (ICD-10) ?Z86.03 - Personal history of neoplasm of uncertain behavior (ICD-10) S/P TURP ?Z90.79 - Acquired absence of other genital organ(s) (ICD-10) S/P cataract extraction and insertion of intraocular lens ?Z98.49 - Cataract extraction status, unspecified eye (ICD-10) ?Z96.1 - Presence of intraocular lens (ICD-10) S/P cystoscopy (06/19/18) ?Z98.890 - Other specified postprocedural states (ICD-10) H/O transurethral resection of bladder tumor (TURBT) (05/21/19) ?Z98.890 - Other specified postprocedural states (ICD-10) ?Z86.03 - Personal history of neoplasm of uncertain behavior (ICD-10) H/O right inguinal hernia repair ?Z98.890 - Other specified postprocedural states (ICD-10) ?Z87.19 - Personal history of other diseases of the digestive system (ICD-10) S/P cystoscopy (08/31/21) ?Z98.890 - Other specified postprocedural states (ICD-10) H/O transurethral resection of bladder tumor (TURBT) (05/03/22) ?Z98.890 - Other specified postprocedural states (ICD-10) ?Z86.03 - Personal history of neoplasm of uncertain behavior (ICD-10) Family History (Updated 06/14/23 @ 08:54 by Tricia Archer NP) Other Family history of breast cancer Family history of diabetes mellitus Liver disease Social History (Updated 06/14/23 @ 09:07 by Tricia Archer NP) Within the past year, how often did you have a drink containing alcohol: monthly or less Smoking status: Former smoker Previous occupational history: Retired Highest level of school completed/degree received: high school graduate Meds Home Medications and Allergies Home Medications ?Medication ?Instructions ?Recorded ?Confirmed ?Type hydrochlorothiazide 12.5 mg capsule 12.5 mg PO DAILY 06/14/23 12/14/24 History metformin 500 mg tablet 500 mg PO BID 06/14/23 12/14/24 History omeprazole 40 mg capsule,delayed 40 mg PO BID 06/14/23 12/14/24 History release restore eye supplement PO 06/14/23 History atorvastatin 40 mg tablet 40 mg PO DAILY 12/14/24 12/14/24 History lisinopril 10 mg tablet 10 mg PO DAILY 12/14/24 12/14/24 History Allergies Allergy/AdvReac Type Severity Reaction Status Date / Time Iodinated Contrast Media Allergy Rash Verified 12/14/24 10:16 Penicillins Allergy Unknown Verified 12/14/24 10:16 BCG treatment Allergy Unknown Uncoded 12/14/24 10:16 Exam Narrative Exam Narrative: Constitutional: Awake, alert, comfortable, well-appearing, nontoxic, interactive, vital signs as charted Head: Normocephalic, atraumatic Neck: Supple, normal appearance, normal range of motion, no meningeal signs, no lymphadenopathy Respiratory: No respiratory distress, breath sounds clear Cardiovascular: Regular rate and rhythm, prominent systolic murmur noted Abdomen: Nontender, normal bowel sounds, soft, no CVA tenderness Musculoskeletal: Normal gait, no swelling or edema Skin: No rashes or induration, no lesions, only visible skin inspected Neuro: No neurological deficits, normal sensation Psychiatric: Oriented ?3, normal affect Assessment and Plan Assessment and Plan (1) Bladder tumor: (2) Bladder cancer: Plan Cystoscopy/TURBT scheduled with Dr. Lafleur December 24, 2024.
[2024-12-14 11:00] LABS: Anion Gap 13.1; BUN Creatinine Ratio 13.8; Calcium 8.8 mg/dL (8.5-10.1); Carbon Dioxide 29.3 mmol/L (21.0-32.0); Chloride 102 mmol/L (98-107); Estimated GFR (African America >60 (>=60 mL/min/1.73m^2); Estimated GFR (Non-African Ame 57 (>=60 mL/min/1.73m^2); Glucose 174 mg/dL (74-106); Potassium 4.4 mmol/L (3.5-5.1); Sodium 140 mmol/L (136-145)
[2024-12-14 11:18] LABS: INR 1.07; Partial Thromboplastin Time 23.4 sec (22.3-36.2); Prothrombin Time 11.3 sec (9.0-11.6)
== END 2024-12-14 09:47 | disposition home or self-care (01) ==
LOC: PST 09:48
PROVIDERS: PCP Family Medicine; Visit Provider Urology
DX: Z01.810 Encounter for preprocedural cardiovascular examination (principal); Z01.812 Encounter for preprocedural laboratory examination; Z01.818 Encounter for other preprocedural examination; D49.4 Neoplasm of unspecified behavior of bladder
CPT/HCPCS: 80048; 85025; 85610; 85730; 93005; G0463

== ENCOUNTER 2024-12-24 08:22 | Day surgery (SDC) | payer MEDICARE, OTHER, SELFPAY ==
[2024-12-14 10:43] VITALS: BP 162/74; PULSE 76; TEMP 36.2; O2SAT 97; BMI 26.6
[2024-12-24] VITALS (14 sets, daily range): BP systolic 108–189; BP diastolic 53–86; PULSE 60–76; TEMP 36–36.2; O2SAT 92–97; BMI 26.6
--- OUTSIDE RECORDS SUMMARY | 2024-12-24 08:39 | XMS_ITS | CCD ---
Author Organization [facility] CliniSywa Care Team Providers Care Automatic Grinding Machine Operator Name Role Phone Ron Mcnamara Primary Care [...] LAFLEUR, DR ORO Admitting Unavailable REQUEST, DR NONE LISTED Primary Care Unavaila Ron Clemons MD Unavailable [phone] Ron Mcnamara MD Primary Care Provider Preethi LAFLEUR R Attending Unavailable LAFLEUR, Preethi R Attending Unavailable LAFLEUR, Preethi Arango Attending Unavailable LAFLEUR, Preethi Arango Admitting Unavailable RON MCNAMARA Attending Unavailable RON MCNAMARA Attending Unavailable ASH BARROS Attending Unavailable SANDRA AUGUST Attending Unavailab RON Drummond Attending Unavailable LAFLEUR, Preethi Arango Attending Unavailable LAFLEUR, Preethi Arango Attending Unavailable LAFLEUR, Preethi Arango Admitting Unavailable LAFLEUR, Preethi Arango Attending Unavailable Allergies Allergy Classification Reported Allergen(s) Allergy Type Date of Onset Reaction(s) Facility (10 sources) BCG, Live, [place] Strain; Translations: [BCG vaccine] Drug Allergy Fever (finding) [facility] Comment on above: had flu like symptom s (13 sources) Penicillin; Translations: [penicillin] Drug Allergy Eruption of skin (disorder) [facility] (13 sources) IVP - Intravenous pyelogram; Translations: [Intravenous pyelogram (procedure)] Drug allergy Dyspnea (finding) [facility] (1 source) Iodine (And Iodine Containting Drugs) Drug allergy (disorder) 5 [facility] Repository (1 source) Penicillins Drug allergy (disorder) 5 [facility] Rep[facility] (1 source) BCG Live Drug allergy (disorder) 5 [facility] Repository (12 sources) BCG, Live, [place] Strain Drug Allergy 3 Fever [facility] (12 sources) Iodine Drug Allergy 2 Unknown [facility] (12 sources) Penicillin G Drug Allergy 3 [facility] (12 sources) Iodinated Contrast Media Drug Intolerance 3 [facility] Work Phone: (3 sources) BCG; Translations: [BCG] Propensity to adverse reactions (disorder) [facility] Repository Medications Current Medications Medication Drug Class(es) Dates Sig (Normalized) Sig (Original) aspirin 81 mg delayed release oral tablet (7 sources) Platelet Aggregation Inhibitor, Nonsteroidal Anti-inflammatory Drug Start: 01-25-2022 End: 03-25-2024 take 1 tablet by mouth once daily aspirin 81 mg Oral EC Tab 81 mg = 1 tab(s), Oral, Daily, # 30 tab(s), Refills(s) 0, Pharmacy: [facility], 182.9, cm, 01/24/22 14:35:00 EDT, Height/Length Dosing, 94.1, kg, 01/24/22 14:35:00 EDT, Weight Dosing Start Date: 01/25/22 Status: Ordered Start: 01-25-2022 take 1 tablet by esther th once daily aspirin 81 mg Oral EC Tab 81 mg = 1 tab(s), Oral, Daily, # 30 tab(s), Refills(s) 0, Pharmacy: [facility], 182.9, cm, 01/24/22 14:35:00 EDT, [...] day(s), # 14 cap(s), Refills(s) 0, Pharmacy: [facility], 182, cm, 02/20/22 14:11:00 EDT, [...] procedure, # 2 tab(s), Refills(s) 0, Pharmacy: [facility], 182, cm, 09/06/21 9:48:00 EST, [...] Status: Ordered glipiZIDE 5 mg oral tablet (19 sources) Sulfonylurea Start: 11-13-2023 End: 08-26-2024 take 1 tablet by mouth once daily glipiZIDE (Glucotrol) 5 MG tablet Indications: Type 2 diabetes mellitus without complication, without long-term current use of insulin Take 1 tablet (5 mg) by mouth [...] Status: Ordered hydrocortisone 0.025 mg/mg topical ointment (12 sources) Corticosteroid Start: 08-26-2023 hydrocortisone 2.5 % ointment Indications: Diabetes mellitus without complication APPLY TO AFFECTED AREA TWICE DAILY FOR 30 DAYS 145 g 08/26/2023 Active lisinopril 10 mg oral tablet (15 sources) Angiotensin Converting Enzyme Inhibitor Start: 08-26-2023 [...] complication, without long-term current use of insulin Take 1 tablet (500 mg) by mouth [...] omeprazole 40 mg delayed release oral capsule (20 sources) Proton Pump Inhibitor Start: 08-11-2012 End: [...] needed, # 30 tab(s), Refills(s) 3, Pharmacy: [facility], 182, cm, 06/24/23 6:36:00 EDT, Height/Length Dosing, 94.8, kg, 06/24/23 6:36:00 EDT, Weight Dosing Start Date: 02/20/24 Status: Ordered tamsulosin hydrochloride 0.4 mg oral capsule (6 sources) alpha-Adrenergic Gerard Start: 03-03-2023 take 1 capsule by mouth once daily tamsulosin 0.4 mg Cap 0.4 mg = 1 cap(s), Oral, Daily, # 30 cap(s), Refills(s) 3, Pharmacy: [facility], 182, cm, 11/14/22 7:35:00 EST, [...] daily, # 30 tab(s), Refills(s) 3, Pharmacy: [facility] 1986, 182, cm, 08/09/21 7:49:00 EST, Height/Length Dosing, 99, kg, 08/09/21 7:49:00 EST, Weight Dosing Start Date: 08/09/21 Status: Ordered Problems Active Problems Problem Classification Problem Date Documented Date Episodic/Chronic Cancer of bladder (20 sources) Malignant tumor of urinary bladder; Translations: [Malignant neoplasm of bladder, unspecified] Onset: 12-07-2021 03-23-2019 Chronic Cancer; other and unspecified primary (10 sources) H/O: malignant neoplasm 09-06-2021 Episodic Cancer; other and unspecified primary (10 sources) History of bladder neoplasm 09-04-2019 Episodic Chronic obstructive pulmonary disease and bronchiectasis (3 sources) Chronic obstructive pulmonary disease, unspecified; Translations: [Chronic obstructive lung disease] Onset: 09-12-2021 10-06-2024 Chronic Conduction disorders (12 sources) First degree atrioventricular block; Translations: [Atrioventricular [...] hypertension] Onset: 01-24-2022 Chronic Headache; including migraine (12 sources) Complicated migraine; Translations: [Migraine with aura, [...] urinary tract symptoms] Onset: 09-12-2021 Chronic Osteoarthritis (12 sources) Localized, primary osteoarthritis of the shoulder region; Translations: [Primary osteoarthritis, unspecified shoulder] Onset: 03-07-2023 03-07-2023 Chronic Other aftercare (2 sources) Taking high risk medication; Translations: [Other 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] 01-30-2024 Episodic Other diseases [...] Onset: 02-10-2021 03-07-2023 Chronic Transient cerebral ischemia (12 sources) Transient cerebral ischemia; Translations: [Transient cerebral [...] [Calculus of kidney] Onset: 04-10-2023 03-23-2019 Episodic Cancer of bladder (20 sources) History of malignant neoplasm of bladder; Translations: [Personal history of malignant neoplasm of bladder] Onset: 12-26-2018 Episodic Genitourinary symptoms and ill-defined conditions (20 sources) Microscopic hematuria; Translations: [Hematuria, unspecified] Onset: 05-01-2022 04-24-2019 Episodic Inflammatory conditions of male genital organs (10 sources) Epididymitis Resolved: 03-23-2019 03-23-2019 Episodic Mood disorders (12 sources) Mood disorders Onset: 01-30-2024 01-30-2024 Neoplasms of unspecified nature or uncertain behavior (20 sources) Neoplasm of bladder; Translations: [Neoplasm of unspecified behavior of bladder] Onset: 01-03-2022 Episodic Other aftercare (1 source) Other long-term (current) drug therapy; Translations: [OTH RESIDENTIAL CURRENT DRUG THERAPY] Onset: 05-09-2022 Episodic Other aftercare (1 source) detention (current) use of oral hypoglycemic drugs; Translations: [OUTREACH REPRESENTATIVE USE ORAL HYPOGLYCEMIC DX] Onset: 05-09-2022 Episodic Other aftercare (1 source) dedicated intermodal truck driver (current) use of aspirin; Translations: [OUTREACH REPRESENTATIVE CURRENT USE OF ASPIRIN] Onset: 05-09-2022 Episodic Other aftercare (1 source) dedicated intermodal truck driver (current) use of anticoagulants; Translations: [OUTREACH REPRESENTATIVE CURRNT USE ANTICOAGULANTS] Onset: 05-01-2022 Episodic Other and unspecified benign neoplasm (1 source) Benign neoplasm of bladder; Translations: [BENIGN NEOPLASM OF BLADDER] Onset: 09-12-2021 Episodic Other circulatory disease (1 source) Personal history of transient ischemic attack (TIA), and cerebral infarction without residual deficits; Translations: [PERS HX TIA AND CI NO RESID DEFICIT] Onset: 05-09-2022 Episodic Other connective tissue disease (12 sources) Impingement syndrome of left shoulder region; Translations: [Impingement syndrome of left shoulder] Onset: 03-07-2023 03-07-2023 Episodic Other nutritional; endocrine; and metabolic disorders (16 sources) Overweight; Translations: [Overweight] Onset: 01-30-2024 06-21-2023 [...] Test Name Value Interpretation Reference Range Facility ALL CBC WITH AUTO DIFFon BASOPHILS ABSOLUTE AUTO 0.1 [facility] Healthcare Basophils/100 WBC (Bld) 1.3 % 0.2 - 2.0 % [facility] Eosinophils/100 WBC (Bld) 4 % 0.9 - 7.0 % [facility] Erythrocyte distribution width (RBC) [Ratio] 12.5 % 11.0 - 15.0 % [facility] Hematocrit (Bld) [Volume fraction] 40 % Low 42.0 - 54.0 % [facility] Hemoglobin (Bld) [Mass/Vol] 13.7 g/dL Low 14.0 - 18.0 g/dL [facility] IMMATURE GRANULOCYTES ABS AUTO 0.02 [facility] Healthcare Immature granulocytes/100 WBC (Bld) 0.3 % 0.0 - 0.5 % [facility] Interpretation and review of laboratory results Abnormal [facility] LYMPHOCYTES ABSOLUTE AUTO 2 [facility] Lymphocytes/100 WBC (Bld) 29.4 % 20.5 - 60.0 % [facility] MCH (RBC) [Entitic mass] 32.2 pg 25.9 - 34.0 pg [facility] MCHC (RBC) [Mass/Vol] 34.3 g/dL 29.9 - 35.2 g/dL [facility] MCV (RBC) [Entitic vol] 94.1 fL High 80.0 - 94.0 fL [facility] MONOCYTES ABSOLUTE AUTO 0.5 [facility] Monocytes/100 WBC (Bld) 7.6 % 1.7 - 12.0 % [facility] NEUTROPHILS ABSOLUTE AUTO 4 [facility] Neutrophils/100 WBC (Bld) 57.4 % 43.0 - 75.0 % [facility] Platelet mean volume (Bld) [Entitic vol] 10.1 fL 9.5 - 13.5 fL [facility] TBH EO # 0.3 [facility] PLT 224 [facility] TBH RBC 4.25 Low [facility] TB WBC 6.9 [facility] ECG 12-LEADon 12-14-2024 [place] [address] Electrocardiograph Report Signed Patient: SARAH MAGAÑA MR#: [id number] : 1945 Acct:[id number] Age/Sex: 79 / M ADM Date: 12/14/24 Loc: [facility] Attending Dr: Preethi Lafleur M.D. Ordering Physician: Preethi Lafleur M.D. Date of Service: 12/14/24 Procedure(s): ECG 12 lead Accession Number(s): [id number] cc: [facility] Test Date: 2024-12-14 Pat Name: SARAH MAGAÑA Department: Room: - Gender: Male Tax Analyst: : 1945 Requested By: PREETHI LAFLEUR Order Number: [id number] Laura MD: IVONNE ALBRECHT M.D. Measurements Intervals [place] Rate: 67 P: 51 ID: [id number] QRS: 20 QRSD: 92 T: 29 QT: 396 QTc: 418 Interpretive Statements SINUS RHYTHM WITH SINUS ARRHYTHMIA WITH FIRST DEGREE AV BLOCK Abnormal ECG Compared to ECG 06/14/2023 08:39:06 No significant changes Electronically Signed On 12-14-2024 20:24:59 EDT by IVONNE ALBRECHT M.D. Dictated By: IVONNE ALBRECHT Signed By: 12/14/242024 DD/ 32 TD/TT: Breaker Up: [facility] Radiology, Radiologist, - 12/14/2024 [place] [address] Electrocardiograph Report Signed Patient: SARAH MAGAÑA MR#: [id number] : 1945 Acct:[id number] Age/Sex: 79 / M ADM Date: 12/14/24 Loc: [facility] Attending Dr: Preethi Lafleur M.D. Ordering Physician: Preethi Lafleur M.D. Date of Service: 12/14/24 Procedure(s): ECG 12 lead Accession Number(s): [id number] cc: [facility] Test Date: 2024-12-14 Pat Name: SARAH MAGAÑA Department: Room: - Gender: Male Tax Analyst: : 1945 Requested By: PREETHI LAFLEUR Order Number: [id number] Reading MD: IVONNE ALBRECHT M.D. Measurements Intervals [place] Rate: 67 P: 51 ID: [id number] QRS: 20 QRSD: 92 T: 29 QT: 396 QTc: 418 Interpretive Statements SINUS RHYTHM WITH SINUS ARRHYTHMIA WITH FIRST DEGREE AV BLOCK Abnormal ECG Compared to ECG 06/14/2023 08:39:06 No significant changes Electronically Signed On 12-14-2024 20:24:59 EDT by IVONNE ALBRECHT M.D. Dictated By: IVONNE ALBRECHT Signed By: 12/14/242024 DD/ 1033 TD/TT: Breaker Up: [facility] Rad[facility] Study observation (narrative) [facility] Healthcare ECG 12-LEADOrdered By: logist Radiology on 12-14-2024 [facility] Work Phone: Reminderson 11-27-2024 Reminders Reminders From: Nuzhat Steve To: EU - Recalls Lafleur; Sent: 07/23/2024 12:57:51 EST Show up: 11/14/2024 12:57:00 EST Subject: Cysto/FISH/cytol Due Date/Time: 12/07/2024 12:57:00 EDT Reminder/Recall Patient is due in February 2025 for 6 month cysto/fish/cytol (bt ck) Patient sched for TURBT on 12/24/24. LG Normal [facility] Laboratory - Hematology and Cell countson 10-06-2024 HbA1c (Bld) [Mass fraction] 7.2 % [facility] No Panel Informationon 10-06 [facility] Uro[facility]ysion Fish and Urine Cyt o ([facility])on 09-02-2024 UV[facility] & UC Diagnosis Info Invalid Interpretation Code [facility] Comment on above: Result Comment: A:Ur ine,Urine:Voided [...] with cytology and cystoscopy results. * CPT: 93884, 77234. Microscopic Notes - Microscopic Notes - Abnormal cells 9p21 deletions: Abnormal cells aneploid events: Total cells analyzed: 73 Hematuria: Gross Description Site ID:A color Yellow fixative Alcohol Received 110 mls of clear yellow fluid with the patient's name and, Urine on the vial. Electronically signed by : on: 09/02/2024 16:09:23 Performed By: #### 1 [id number] #### [facility] Laboratory [address] [place] [address] Ambulatory Visit Summaryon 1 10-27-2023 Ambulatory Visit Summary Ambulatory Visit Summary SARAH MAGAÑA :1945 Visit Date:08/26/2024 Ambulatory Visit Instructions Your [...] Preethi LAFLEUR MD Where: [facility] [address] [place] [address]- You Need to Schedule the Following Appointments Follow Up with Preethi LAFLEUR MD, URL When: Where: [facility] [address] [place] [address]- Medications What How Much When Instructions Unchanged [...] after yo (more content not included)... Normal [facility] UroVysion Fish and Urine Cyt o ([facility])on 08-26-2024 [facility] Method of Extraction Voided Normal [facility] Comment on above: Performed By: #### 1 [id number] #### [facility] [address] [place] [address] [facility] Number of Jars 1 Invalid Interpretation Code [facility] Comment on above: Performed By: #### 1 [id number] #### [facility] [address] [place] [address] [facility] Specimen Urine Normal [facility] Comment on above: Performed By: #### 1 [id number] #### [facility] [address] [place] [address] [facility] Type of Service Technical Only Normal [facility] Comment on above: Performed By: #### 1 [id number] #### [facility] [address] [place] [address] Urology Office/Clinic Noteon 08-26-2024 Urology Office/Clinic Note [...] path. First record of cysto in [facility] was 03/23/09 for hx of bladder cancer. [...] General anesthesia. Follow-up With When Contact Information ODILON JENKINS, Preethi Arango, URL [facility] [address] [place] [address]- Additional Instructions: schedule Cysto with TURBT Patient Education Transurethral Resection of Bladder Tumor, Care After Transurethral Resection of Bladder Tumor Sheryl Horan, personally scribed for Dr. Lafleur on 08/26/2024 08:03:14. . Documentation recorded by the scribSheryl leija, accurately reflects the services(s) I performed and decisions made by me. Authenticated by Dr. Lafleur on 08/26/2024 08:04:02. Problem List/Past Medical History Ongoin (more content not included)... Normal [facility] Comment on above: Result Comment: Elec tronically Signed By: Preethi LAFLEUR MD\.br\Date and Time Signed: 08/26/24 08:04 EST\.br\Electronically Co-Signed By: Sheryl Augustin.br\Date and Time Co-Signed: 08/26/24 08:03 EST Laboratory - Hematology and Cell countson 08-25-2024 HbA1c (Bld) [Mass fraction] 8.4 % [facility] No Panel Informationon 08-25 [facility] Reminderson 07-23-2024 Reminders Reminders From: Nuzhat Steve To: EU - Recalls Lafleur; Sent: 03/31/2024 11:04:56 EDT Show up: 07/17/2024 11:04:00 EDT Subject: cysto/fish/cytol Due Date/Time: 08/10/2024 11:04:00 EST Reminder/Recall Patient is due in Sep 2024 for 6 month cysto/fish/cytol, bt ck Patient sched 08/26/24 due to vacation schedule.LG Normal [facility] Reminderson 03-31-2024 Reminders Reminders From: Nuzhat Steve To: EU - Recalls Lafleur; Sent: 02/04/2024 13:46:11 EDT Show up: 03/24/2024 13:46:00 EDT Subject: Cysto - Due Date/Time: 04/13/2024 13:46:00 EDT Reminder/Recall Patient is leaving 06/11/24 for cruise [place] days. He will need a Cysto on return. Patient had cysto completed on 03/25/24. He is 6 month cysto/fish/cytol. Normal [facility] UroVysion Fish and Urine Cyt o ([facility])on 03-30-2024 [facility] Diagnosis Info Invalid Interpretation Code [facility] Comment on above: Result Comment: A:Ur ine,Urine:Voided [...] on: 03/30/2024 17:51:11 Performed By: #### 1 [id number] #### [facility] [address] [place] [address] Ambulatory Visit Summaryon 0 03-25-2024 Ambulatory Visit Summary Ambulatory Visit Summary SARAH MAGAÑA :1945 Visit Date:03/25/2024 Ambulatory Visit Instructions Your Diagnosis History of bladder cancer BPH with urinary obstruction Erectile dysfunction Your Care Team Attending Physician - ODILON JENKINS, Preethi Arango Primary Care Physician - [place] JENKINS, Ron [...] [place] When: Where: [facility] [address] [place] [address]- Medications What How Much When Instructions Unchanged [...] health car (more content not included)... Normal [facility] UroVysion Fish and Urine Cyt o ([facility])on 03-25-2024 [facility] Method of Extraction Bladder Urine Normal [facility] Comment on above: Performed By: #### 1 [id number] #### [facility] Laboratory [address] [place] [address] [facility] Number of Jars 1 Invalid Interpretation Code [facility] Comment on above: Performed By: #### 1 [id number] #### [facility] [address] [place] [address] [facility] Specimen Urine Normal [facility] Comment on above: Performed By: #### 1 [id number] #### [facility] [address] [place] [address] [facility] Type of Service Technical Only Normal [facility] Comment on above: Performed By: #### 1 [id number] #### [facility] [address] [place] [address] Urology Office/Clinic Noteon 03-25-2024 Urology Office/Clinic Note [...] original path. First record of cysto in [facility] was 03/23/09 for hx of bladder cancer. [...] mg prn. Follow-up With When Contact Information ODILON JENKINS, Preethi Arango, URL [facility] [address], [place] [address]- Additional Instructions: 6 mos surveillance cysto/bt ck/FISH/cytol [...] Flexible cysto (more content not included)... Normal [facility] Comment on above: Result Comment: Elec tronically Signed By: Preethi LAFLEUR MD\.br\Date and Time Signed: 03/25/24 08:04 EDT\.br\Electronically Co-Signed By: Sheryl Augustin\.br\Date and Time Co-Signed: 03/25/24 08:03 EDT Laboratory - Hematology and Cell countson 01-30-2024 HbA1c (Bld) [Mass fraction] 6.9 % [facility] No Panel Informationon 01-29 Interpretation and review of laboratory results Normal [facility] CHEMISTRYOrdered By: Lab ROP User on 07-01-2023 Glucose [Mass/Vol] 182 mg/dL High 55 - 99 mg/dL [facility] POC Subsection Comment on above: Result Comment: Amy payton Meter POC Username ROBINSON NUNN Invalid Interpretation Code [facility] POC Subsection Sodium [Moles/Vol] [id number] mmol/L Invalid Interpretation Code [facility] POC Subsection Sodium [Moles/Vol] [id number] mmol/L Invalid Interpretation Code [facility] POC Subsection HEMATOLOGYOrdered By: Tavia Charles on 07-01-2023 Erythrocyte distribution width (RBC) [Ratio] 12.7 % Normal 10.9 - 14.2 % [facility] HemeAutoSS Hematocrit (Bld) [Volume fraction] 43.6 % Normal 37.7 - 49.0 % [facility] Hemoglobin (Bld) [Mass/Vol] 14.9 g/dL Normal 13.5 - 17.5 gm/dL [facility] MCH (RBC) [Entitic mass] 31.0 pg Normal 27.0 - 34.0 pg FT [facility] MCHC (RBC) [Mass/Vol] 34.2 g/dL Normal 31.4 - 36.0 gm/dL FT [facility] MCV (RBC) [Entitic vol] 90.8 fL Normal 80.0 - 100.0 fL FT [facility] Platelet mean volume (Bld) [Entitic vol] 8.6 fL Normal 6.4 - 10.8 fL FT [facility] Platelets (Bld) [#/Vol] 211.0 E9/L Normal 150.0 - 500.0 E9/L FT [facility] RBC (Bld) [#/Vol] 4.8 E12/L Normal 4.3 - 5.9 E12/L FT [facility] WBC corrected for nucl RBC Auto (Bld) [#/Vol] 8.3 E9/L Normal 4.0 - 11.0 E9/L [facility] POINT OF CARE GLUCOSEon 04-16 Glucose [Mass/Vol] 142 mg/dL Critically high 74-106 T [facility] Comment on above: Performed By: #### P OCGLUC #### [facility] [address] [place], [place] [address] Dr. Michael Scott CBC AUTO DIFFon 04-27-2022 BASO # 0.1 103/ul Normal 0.0-0.1 [facility] Comment on above: Performed By: #### C BC ####[facility] [id number] [place], [place] [address]NdKristine Scott Basophils/100 WBC (Bld) 1.0 % Normal 0.2-2.0 [facility] Comment on above: Performed By: #### C BC ####[facility] [address] [place], [place] [address]YsKristine Scott EO # 0.2 103/ul Normal 0.0-0.7 [facility] Comment on above: Performed By: #### C BC ####[facility] [address] [place], [place] [address]MgKristine Scott Eosinophils/100 WBC (Bld) 2.1 % Normal 0.9-7.0 [facility] Comment on above: Performed By: #### C BC ####[facility] [address] [place] [address]Dr. Michael Scott Erythrocyte distribution width (RBC) [Ratio] 12.0 % Normal 11.0-15.0 [facility] Comment on above: Performed By: #### C BC ####[facility] [address] [place], [place] [address]Dr. Michael Scott Hematocrit (Bld) [Volume fraction] 46.9 % Normal 42.0-54.0 [facility] Comment on above: Performed By: #### C BC ####[facility] [address] [place], [place] [address]Dr. Michael Scott Hemoglobin (Bld) [Mass/Vol] 15.3 g/dL Normal 14.0-18.0 [facility] Comment on above: Performed By: #### C BC ####[facility] [address] [place], [place] [address]Dr. Michael Scott IG # 0.01 10e3/ul Normal 0.00-0.03 [facility] Comment on above: Performed By: #### C BC ####[facility] Vguuwcj[address] [place], [place] [address]Dr. Michael Scott IG % 0.1 % Normal 0.0-0.5 [facility] Comment on above: Performed By: #### C BC ####[facility] Lflxpeoep[address] [place], [place] [address]Dr. Michael Scott LYMPH # 2.8 103/ul Normal 1.2-3.8 [facility] Comment on above: Performed By: #### C BC ####[facility] C[address]hwlyz[address] [place], [place] [address]Dr. Michael Scott Lymphocytes/100 WBC (Bld) 36.4 % Normal 20.5-60.0 [facility] Comment on above: Performed By: #### C BC ####[facility] Hpvdcxjthe[address] [place], [place] [address]Dr. Michael Scott MANUAL DIFF REQ NO Normal [facility] Comment on above: Performed By: #### C BC ####[facility] [address] [place] [id number]. Michael Tyler MCH (RBC) [Entitic mass] 30.8 pg Normal 25.9-34.0 [facility] Comment on above: Performed By: #### C BC ####[facility] N[address]dfm[address] [place] [id number]. Michael Tyler MCHC (RBC) [Mass/Vol] 32.6 g/dL Normal 29.9-35.2 [facility] Comment on above: Performed By: #### C BC ####[facility] [address] [place] [address]Dr. Lettytory Scott MCV (RBC) [Entitic vol] 94.4 fL Critically high 80.0-94.0 [facility] Comment on above: Performed By: #### C BC ####[facility] Qohunibiua[address] [place], [place] [address]Dr. Michael Scott MONO # 0.6 103/ul Normal 0.3-0.8 [facility] Comment on above: Performed By: #### C BC ####[facility] Infxerhvls[address] [place], [place] [address]Dr. Michael Scott Monocytes/100 WBC (Bld) 8.2 % Normal 1.7-12.0 [facility] Comment on above: Performed By: #### C BC ####[facility] Jm[address]uxs[address] [place], [place] [address]Dr. Michael Scott NEUT # 4.0 103/ul Normal 1.4-6.5 [facility] Comment on above: Performed By: #### C BC ####[facility] B[address]kwy[address]te[address] [place], [place] [address]Dr. Michael Scott Neutrophils/100 WBC (Bld) 52.2 % Normal 43.0-75.0 [facility] Comment on above: Performed By: #### C BC ####[facility] Adxlstolbx[address] [place], [place] [address]Dr. Michael Scott Platelet mean volume (Bld) [Entitic vol] 10.4 fL Normal 9.5-13.5 [facility] Comment on above: Performed By: #### C BC ####[facility] [address] [place], [place] [address]Uq. Michael Scott PLT 194 103/ul Normal 150-450 [facility] Comment on above: Performed By: #### C BC ####[facility] V[address]64[address] [place], [place] [address]Jj. Michael Scott RBC 4.97 106/ul Normal 4.70-6.10 [facility] Comment on above: Performed By: #### C BC ####[facility] Q[address] [place], [place] [address]Yg. Michael Scott WBC 7.7 103/ul Normal 4.0-11.0 [facility] Comment on above: Performed By: #### C BC ####[facility] U[address]rfzi43[address] [place], [place] [address]Pd. Michael Scott Covid-19 PCR (CVDTB)on 04-16 SARS-CoV-2 (COVID-19) RNA JOHNATHON+probe Ql (Unsp spec) Not detected Normal NOT DETECTED [facility] Comment on above: Result Comment: This test is not yet approved or cleared by the [place] FDA. When there are no FDA-approved or cleared tests available, and other criteria are met, FDA can make tests available under an emergency access mechanism called an Emergency Use Authorization (EUA). The EUA for this test is supported by the [employer] Operator of Health and Human Service's (HHS's) declaration [...] SARS-CoV-2. Performed By: #### C VDTBH #### [facility] [address] [place], [place] [address] Dr. Michael Scott PROF CHEM 8 (BAS METB)on Anion gap [Moles/Vol] 12.8 mmol/L Normal [facility] Comment on above: Performed By: #### B MP #### [facility] [address] [address] [address] Michael Scott Calcium [Mass/Vol] 9.1 mg/dL Normal 8.5-10.1 [facility] Comment on above: Performed By: #### B MP #### [facility] [address] [address] [address] Michael Scott Chloride [Moles/Vol] 100 mmol/L Normal 98-107 [facility] Comment on above: Performed By: #### B MP #### [facility] [address] [place] [address] Dr. Michael Scott CO2 [Moles/Vol] 30.2 mmol/L Normal 21.0-32.0 [facility] Comment on above: Performed By: #### B MP #### [facility] [address] [place] [address] Dr. Michael Scott Creatinine [Mass/Vol] 1.18 mg/dL Normal 0.70-1.30 [facility] Comment on above: Performed By: #### B MP #### [facility] [address] [place] [address] Dr. Michael Scott EGFR-AF CITIZEN [place] >60 Normal >=60 [facility] Comment on above: Performed By: #### B MP #### [facility] [address] [address] [address] Michael Scott EGFR-NON AF CITIZEN OF [place] 60 mL/min/1.73m2 Normal >=60 [facility] Comment on above: Performed By: #### B MP #### [facility] [address] [address] [address] Michael Scott Glucose [Mass/Vol] 173 mg/dL Critically high 74-106 T [facility] Comment on above: Performed By: #### B MP #### [facility] [address] [address] [address] Michael Scott Potassium [Moles/Vol] 5.0 mmol/L Normal 3.5-5.1 [facility] Comment on above: Performed By: #### B MP #### [facility] [address] [place] [address] Dr. Michael Scott Sodium [Moles/Vol] 138 mmol/L Normal 136-145 [facility] Comment on above: Performed By: #### B MP #### [facility] [address] [place] [address] Dr. Michael Scott Urea nitrogen [Mass/Vol] 16.0 mg/dL Normal 7.0-18.0 [facility] Comment on above: Performed By: #### B MP #### [facility] [address] [place] [address] Dr. Michael Scott Urea nitrogen/Creatinine [Mass ratio] 13.6 mg/mg Normal [facility] Comment on above: Performed By: #### B MP #### [facility] [address] [place] [address] Dr. Michael Scott PROTIMEon 04-27-2022 INR Coag (PPP) [Relative time] 1.06 {INR} Normal [facility] Comment on above: Performed By: #### P T, PTT #### [facility] [address] [place] [address] Dr. Michael Scott INR GUIDELINES SEE BELOW Normal [facility] Comment on above: Result Comment: ELENA RED INR: 2.0 - 3.0 CONDITIONS NOT LISTED BELOW 2.5 - 3.5 FOR PROSTHETIC HEART VALVE REPLACEMENT 2.5 - 3.5 RECURRENT THROMBOSIS Performed By: #### P T, PTT #### [facility] [address] [place] [address] Dr. Michael Scott PT Coag (PPP) [Time] 11.4 s Normal 9.0-11.6 [facility] Comment on above: Performed By: #### P T, PTT #### [facility] [address] [place] [address] Dr. Michael Scott PTTon 04-27-2022 aPTT Coag (Bld) [Time] 25.0 s Normal 22.3-36.2 [facility] Comment on above: Performed By: #### P T, PTT #### [facility] [address] [address] [address] Michael Scott CHEMISTRYOrdered By: Lab ROP User on 01-25-2022 Glucose [Mass/Vol] 131 mg/dL High 55 - 99 mg/dL [facility] POC Subsection Comment on above: Result Comment: Amy payton Meter POC Device SN [id number] Invalid Interpretation Code [facility] POC Subsection POC User ID [id number] Invalid Interpretation Code [facility] POC Subsection POC Username DEVYN LARIOS Invalid Interpretation Code [facility] POC Subsection Glucose [Mass/Vol] 106 mg/dL High 55 - 99 mg/dL [facility] POC Subsection Comment on above: Result Comment: Bryce colmenares RN/ POC Device SN [id number] Invalid Interpretation Code [facility] POC Subsection POC User ID [id number] Invalid Interpretation Code [facility] POC Subsection POC Username PIPPA LUGO Invalid Interpretation Code [facility] POC Subsection Glucose [Mass/Vol] 129 mg/dL High 55 - 99 mg/dL [facility] POC Subsection Comment on above: Result Comment: Bryce comlenares RN/ POC Device SN [id number] Invalid Interpretation Code [facility] POC Subsection POC User ID [id number] Invalid Interpretation Code [facility] POC Subsection POC [...] (Bld) [Mass fraction] 8.0 % High <=5.9% [facility] ChemAutoSS CHEMISTRYOrdered By: SYSTEM SYSTEM on 01-24-2022 Troponin I.cardiac [Mass/Vol] 7.60 pg/mL Low 15.90 - 38.40 pg/mL [facility] Remisol Troponin I.cardiac [Mass/Vol] 7.40 pg/mL Low 15.90 - 38.40 pg/mL [facility] Anion gap [Moles/Vol] 14 mmol/L Normal 6 - 16 mEq/L [facility] Remisol Calcium [Mass/Vol] 9.3 mg/dL Normal 8.9 - 11. 1 mg/dL [facility] Chloride [Moles/Vol] 99 mmol/L Low 101 - 1 11 mmol/L [facility] CO2 [Moles/Vol] 26 mmol/L Normal 21 - 31 mmol/L [facility] Creatinine [Mass/Vol] 1.1 mg/dL Normal 0.5 - 1.3 mg/dL [facility] Remisol GFR/1.73 sq M.predicted among blacks MDRD (S/P/Bld) [Vol rate/Area] mL/min/1.73 m2 Normal >=59mL/min/1 .73 m2 [facility] Chem S GFR/1.73 sq M.predicted among non-blacks MDRD (S/P/Bld) [Vol rate/Area] mL/min/1.73 m2 Normal >=59mL/min/1 .73 m2 [facility] Chem S Glucose [Mass/Vol] 130 mg/dL Normal 55 - 199 mg/dL [facility] Potassium [Moles/Vol] 4.1 mmol/L Normal 3.5 - 5.3 mmol/L [facility] Sodium [Moles/Vol] 135 mmol/L Normal 135 - 145 mmol/L [facility] Urea nitrogen [Mass/Vol] 21 mg/dL Normal 5 - 21 mg/dL [facility] Urea nitrogen/Creatinine [Mass ratio] 19 mg/mg [...] 7.8 E9/L Normal 4.0 - 11.0 E9/L [facility] HemeAutoSS URINALYSISOrdered By: River valentine on 01-24-2022 [...] Interpretation Code Negative [facility] UA Auto SS [place].plasma/Lithiu m.RBC (Bld) [Mass ratio] 0-3 /HPF Normal 0-3/HPF [facility] UA Auto SS Nitrite Ql (U) Negative (01/24/22 6:50 PM) Normal Negative [facility] UA Auto SS pH (U) 5.5 *NA* (01/24/22 6:50 PM) Invalid Interpretation Code 5.0 - 9.0 [facility] UA Auto SS Protein (U) [Mass/Vol] Trace *ABN* (01/24/22 6:50 PM) Invalid Interpretation Code Negative [facility]A Auto SS Specific gravity (U) [Rel density] 1.020 *NA* (01/24/22 6:50 PM) Invalid Interpretation Code 1.005 - 1.030 [facility] UA Auto SS UA Spec Desc Clean Catch (01/24/22 6:50 PM) Normal [facility] UA Auto SS Urobilinogen Qn (U) 1.0438339 {Davide'U}/dL Normal 0.0 - 1.0 EU/dL [facility]A Auto SS WBC Auto Ql (U) Negative (01/24/22 6:50 PM) Normal Negative [facility] UA Auto SS WBC LM.HPF (Urine sed) [#/Area] 0-5 /HPF Normal 0-5/HPF [facility] UA Auto SS CBC AUTO DIFFon 01-16-2022 BASO # 0.1 103/ul Normal 0.0-0.1 [facility] Comment on above: Performed By: #### C BC ####[facility] Iokkzzrm[address] [place], [place] [address]Dr. Michael Scott Basophils/100 WBC (Bld) 0.7 % Normal 0.2-2.0 [facility] Comment on above: Performed By: #### C BC ####[facility] Il[address]jci[address] [place], [place] [address]DrKristine Scott EO # 0.2 103/ul Normal 0.0-0.7 [facility] Comment on above: Performed By: #### C BC ####[facility] H[address] [place], [place] [address]DrKristine Scott Eosinophils/100 WBC (Bld) 1.8 % Normal 0.9-7.0 [facility] Comment on above: Performed By: #### C BC ####[facility] Yqu[address]qev[address] [place], [place] [address]DrKristine Scott Erythrocyte distribution width (RBC) [Ratio] 12.2 % Normal 11.0-15.0 [facility] Comment on above: Performed By: #### C BC ####[facility] Zaw[address]cf[address] [place], [place] [address]DrKristine Saenztory Scott Hematocrit (Bld) [Volume fraction] 45.8 % Normal 42.0-54.0 [facility] Comment on above: Performed By: #### C BC ####[facility] [address] [place] [address]Dr. Michael Scott Hemoglobin (Bld) [Mass/Vol] 14.9 g/dL Normal 14.0-18.0 [facility] Comment on above: Performed By: #### C BC ####[facility] [address] [place] [address]Dr. Michael Scott IG # 0.02 10e3/ul Normal 0.00-0.03 [facility] Comment on above: Performed By: #### C BC ####[facility] S[address]fe[address] [place] [address]Dr. Michael Scott IG % 0.2 % Normal 0.0-0.5 [facility] Comment on above: Performed By: #### C BC ####[facility] Dnrefpinls[address] [place], [place] [address]Dr. Michael Scott LYMPH # 2.9 103/ul Normal 1.2-3.8 [facility] Comment on above: Performed By: #### C BC ####[facility] Xftbvpptft[address] [place], [place] [address]Dr. Michael Scott Lymphocytes/100 WBC (Bld) 34.2 % Normal 20.5-60.0 [facility] Comment on above: Performed By: #### C BC ####[facility] Eyyptoadkw[address] [place], [place] [address]Dr. Michael Scott MANUAL DIFF REQ NO Normal [facility] Comment on above: Performed By: #### C BC ####[facility] Vyzrwxptpk[address] [place], [place] [address]Dr. Michael Scott MCH (RBC) [Entitic mass] 31.0 pg Normal 25.9-34.0 [facility] Comment on above: Performed By: #### C BC ####[facility] Lqrtuacuoc[address] [place], [place] [address]Dr. Michael Scott MCHC (RBC) [Mass/Vol] 32.5 g/dL Normal 29.9-35.2 [facility] Comment on above: Performed By: #### C BC ####[facility] [address]tp[address]fq[address] [place] [address]Dr. Michael Scott MCV (RBC) [Entitic vol] 95.2 fL Critically high 80.0-94.0 [facility] Comment on above: Performed By: #### C BC ####[facility] Hpedmhjdpd[address] [place], [place] [address]Dr. Michael Scott MONO # 0.5 103/ul Normal 0.3-0.8 [facility] Comment on above: Performed By: #### C BC ####[facility] Vrakdhhqwi[address] [place], [place] [address]Dr. Michael Scott Monocytes/100 WBC (Bld) 6.1 % Normal 1.7-12.0 [facility] Comment on above: Performed By: #### C BC ####[facility] Ghahbqsxjf[address] [place], [place] [address]Dr. Michael Scott NEUT # 4.9 103/ul Normal 1.4-6.5 [facility] Comment on above: Performed By: #### C BC ####[facility] Awwxnblyju[address] [place], [place] [address]Dr. Michael Scott Neutrophils/100 WBC (Bld) 57.0 % Normal 43.0-75.0 [facility] Comment on above: Performed By: #### C BC ####[facility] Abnoiothqr[address] [place], [place] [address]Dr. Michael Scott Platelet mean volume (Bld) [Entitic vol] 10.3 fL Normal 9.5-13.5 [facility] Comment on above: Performed By: #### C BC ####[facility] W[address]suzwwsq[address] [place], [place] [address]Dr. Michael Scott PLT 211 103/ul Normal 150-450 [facility] Comment on above: Performed By: #### C BC ####[facility] Mxfyuwhfxj[address] [place], [place] [address]Dr. Michael Scott RBC 4.81 106/ul Normal 4.70-6.10 [facility] Comment on above: Performed By: #### C BC ####[facility] [address]rf[address] [place] [address]Dr. Michael Scott WBC 8.6 103/ul Normal 4.0-11.0 [facility] Comment on above: Performed By: #### C BC ####[facility] [address] [place] [id number]. Michael Scott PROF CHEM 8 (BAS METB)on Anion gap [Moles/Vol] 11.5 mmol/L Normal [facility] Comment on above: Performed By: #### B MP #### [facility] [address] [place] [address] Dr. Michael Scott Calcium [Mass/Vol] 8.4 mg/dL Critically low 8.5-10.1 [facility] Comment on above: Performed By: #### B MP #### [facility] [address] [place] [address] Dr. Michael Scott Chloride [Moles/Vol] 103 mmol/L Normal 98-107 [facility] Comment on above: Performed By: #### B MP #### [facility] [address] [place] [address] Dr. Michael Scott CO2 [Moles/Vol] 29.0 mmol/L Normal 21.0-32.0 [facility] Comment on above: Performed By: #### B MP #### [facility] [address] [place] [address] [address] Michael Scott Creatinine [Mass/Vol] 0.98 mg/dL Normal 0.70-1.30 [facility] Comment on above: Performed By: #### B MP #### [facility] [address] [place] [address] Dr. Michael Scott EGFR-AF [place] >60 Normal >=60 [facility] Comment on above: Performed By: #### B MP #### [facility] [address] [place] [address] Dr. Michael Scott EGFR-NON AF [place]IZ[place] >60 Normal >=60 [facility] Comment on above: Performed By: #### B MP #### [facility] [address] [address] [address] Michael Scott Glucose [Mass/Vol] 122 mg/dL Critically high 74-106 T [facility] Comment on above: Performed By: #### B MP #### [facility] [address] [address] [address] Michael Scott Potassium [Moles/Vol] 4.5 mmol/L Normal 3.5-5.1 [facility] Comment on above: Performed By: #### B MP #### [facility] [address] [address] [address] Michael Scott Sodium [Moles/Vol] 139 mmol/L Normal 136-145 [facility] Comment on above: Performed By: #### B MP #### [facility] [address] [address] [address] Michael Scott Urea nitrogen [Mass/Vol] 15.0 mg/dL Normal 7.0-18.0 [facility] Comment on above: Performed By: #### B MP #### [facility] [address] [address] [address] Michael Scott Urea nitrogen/Creatinine [Mass ratio] 15.3 mg/mg Normal [facility] Comment on above: Performed By: #### B MP #### [facility] [address] [address] [address] Michael Scott PROTIMEon 01-16-2022 INR Coag (PPP) [Relative time] 1.08 {INR} Normal [facility] Comment on above: Performed By: #### P TT, PT #### [facility] [address] [address] [address] Michael Scott INR GUIDELINES SEE BELOW Normal [facility] Comment on above: Result Comment: ELENA RED INR: 2.0 - 3.0 CONDITIONS NOT LISTED BELOW 2.5 - 3.5 FOR PROSTHETIC HEART VALVE REPLACEMENT 2.5 - 3.5 RECURRENT THROMBOSIS Performed By: #### P TT, PT #### [facility] [address] [place], [place] [address] Dr. Michael Scott PT Coag (PPP) [Time] 11.6 s Normal 9.0-11.6 [facility] Comment on above: Performed By: #### P TT, PT #### [facility] [id number] Michael Scott PTTon 01-16-2022 aPTT Coag (Bld) [Time] 24.7 s Normal 22.3-36.2 [facility] Comment on above: Performed By: #### P TT, PT #### [facility] [address] [address] [address] Michael Scott XR CHEST 2 Von [...] by: FANNIE PACE Date: 2022-01-16 12:22 Normal [facility] POINT OF CARE GLUCOSEon 12- Glucose [Mass/Vol] 154 mg/dL Critically high 74-106 T he [facility] Comment on above: Performed By: #### P OCGLUC #### [facility] [id number] Michael Scott Bladder Cancer FISHon 2020 Specimen Type: Normal [facility] Comment on above: Result Comment: See report. Scanned copy available in EMR. PERFORMED BY: [facility] [address] [facility]ITALM[facility] [place] [id number] PATHOLOGIST [employer] CONTRACTOR GAGE NAVARRETE M.D. Performed By: #### F MONICA BLADD #### [facility] , [facility] 08-09-2021 L -- ---- Specimen: [id number] Received: 08/11/21 Status: JYOTI Zak Num: [id number] Spec Type: Cytology Subm Dr: Preethi Lafleur MD Tissues: A URINECYTO (BLADDER WASH URINE) Procedures: Pap Stain, Cyto Prepstain ---- Patient Age/Sex Location Account Attending Physician ---- Sarah Magaña 76/[facility] [id number] Preethi Lafleur MD ---- SPEC NUM: [id number] RECD: 08/11/21 STATUS: JYOTI ZAK NUM: [id number] SONYA: 08/09/21- DR: Preethi Lafleur MD ENTERED: 08/11/[address]: SPEC TYPE: Cytology DEPT: [place] ENTERED BY: [id number] RECV BY: [id number] ORDERED: Pap Stain, Cyto Prepstain ORDERED: Pap [...] wash. ThinPrep is prepared for microscopic examination. (YJ/jeanne) Microscopic Description One Papanicolaou stained thin prep slide has been examined. The microscopic findings support the above diagnosis. CPT Codes 09684 ---- ---- Specimen: [id number] Received: 08/11/21 Status: WILMERSameer Rodriguez Num: [id number] Spec Type: Cytology Subm Dr: Preethi Lafleur MD Tissues: A URINECYTO (BLADDER WASH URINE) Procedures: Pap Stain, Cyto Prepstain ---- Patient: Sarah Magaña [id number] (Continued) ---- Signed (signature on file) Jil Grewal MD 08/11/21 1527 [facility] Vital Signs Date Time Vital Sign Value [facility] 10-06-2024 09:02-0500 Body height 182.9 cm Ron Mcnamara MD Work Phone: [facility] 10-06-2024 09:02-0500 Body mass index (BMI) [Ratio] 28.26 kg/m2 Ron Mcnamara MD Work Phone: [facility] 10-06-2024 09:02-0500 Body temperature 97.81 [degF] Ron Mcnamara MD Work Phone: [facility] 10-06-2024 09:02-0500 Body weight 94.53 kg Ron Mcnamara MD Work Phone: [facility] 10-06-2024 09:02-0500 Diastolic blood pressure 72 mm[Hg] Ron Mcnamara MD Work Phone: [facility] 10-06-2024 09:02-0500 Heart rate 55 /min Ron Mcnamara MD Work Phone: [facility] 10-06-2024 09:02-0500 SaO2% (BldA) [Mass fraction] 95 % Ron Mcnamara MD Work Phone: [facility] 10-06-2024 09:02-0500 Systolic blood pressure 126 mm[Hg] Ron Mcnamara MD Work Phone: [facility] 08-25-2024 15:26-0500 Body height 182.9 cm Ron Mcnamara MD Work Phone: [facility] 08-25-2024 15:26-0500 Body mass index (BMI) [Ratio] 29.43 kg/m2 Ron Mcnamara MD Work Phone: [facility] 08-25-2024 15:26-0500 Body temperature 98.6 [degF] Ron Mcnamara MD Work Phone: [facility] 08-25-2024 15:26-0500 Body weight 98.43 kg Ron Mcnamara MD Work Phone: [facility] 08-25-2024 15:26-0500 Diastolic blood pressure 76 mm[Hg] Ron Mcnamara MD Work Phone: [facility] 08-25-2024 15:26-0500 Heart rate 81 /min Ron Mcnamara MD Work Phone: [facility] 08-25-2024 15:26-0500 SaO2% (BldA) [Mass fraction] 97 % Ron Mcnamara MD Work Phone: [facility] 08-25-2024 15:26-0500 Systolic blood pressure 138 mm[Hg] Ron Mcnamara MD Work Phone: [facility] 03-25-2024 07:32-0400 Blood Pressure Location Preethi LAFLEUR [facility] 03-25-2024 07:32-0400 Body temperature 98.6 [degF] Preethi LAFLEUR [facility] 03-25-2024 07:32-0400 Diastolic blood pressure 86 mm[Hg] Preethi LAFLEUR [facility] 03-25-2024 07:32-0400 Heart rate 76 /min Preethi LAFLEUR [facility] 03-25-2024 07:32-0400 Respiratory rate 16 /min Preethi LAFLEUR [facility] 03-25-2024 07:32-0400 Systolic blood pressure 130 mm[Hg] Preethi LAFLEUR [facility] 01-30-2024 08:48-0400 Body height 182.9 cm Ron Mcnamara MD Work Phone: [facility] 01-30-2024 08:48-0400 Body mass index (BMI) [Ratio] 28.07 kg/m2 Ron Mcnamara MD Work Phone: [facility] 01-30-2024 08:48-0400 Body temperature 97.7 [degF] Ron Mcnamara MD Work Phone: [facility] 01-30-2024 08:48-0400 Body weight 93.89 kg Ron Mcnamara MD Work Phone: [facility] 01-30-2024 08:48-0400 Diastolic blood pressure 70 mm[Hg] Ron Mcnamara MD Work Phone: [facility] 01-30-2024 08:48-0400 Heart rate 78 /min Ron Mcnamara MD Work Phone: [facility] 01-30-2024 08:48-0400 SaO2% (BldA) [Mass fraction] 97 % Ron Mcnamara MD Work Phone: [facility] 01-30-2024 08:48-0400 Systolic blood pressure 122 mm[Hg] Ron Mcnamara MD Work Phone: [facility] 07-01-2023 14:20-0400 Body temperature 97.88 [degF] Venkata RODGERS [facility] 07-01-2023 14:20-0400 Diastolic blood pressure 75 mm[Hg] Venkata RODGERS [facility] 07-01-2023 14:20-0400 Heart rate 72 /min Venkata RODGERS [facility] 07-01-2023 14:20-0400 Respiratory rate 16 /min Venkata RODGERS [facility] 07-01-2023 14:20-0400 SaO2% (BldA) [Mass fraction] 97 % Venkata NILL [facility] 07-01-2023 14:20-0400 Systolic blood pressure 160 mm[Hg] Venkata NILL [facility] 07-01-2023 14:18-0400 Heart rate 59 /min Venkata NILL [facility] 07-01-2023 14:18-0400 SaO2% (BldA) [Mass fraction] 96 % Venkata NILL [facility] 07-01-2023 14:17-0400 Diastolic blood pressure 82 mm[Hg] Venkata NILL [facility] 07-01-2023 14:17-0400 Mean blood pressure 111 mm[Hg] Venkata NILL [facility] 07-01-2023 14:17-0400 Systolic blood pressure 171 mm[Hg] Venkata NILL [facility] 07-01-2023 13:16-0400 Heart rate 74 /min Venkata NILL [facility] 07-01-2023 13:16-0400 SaO2% (BldA) [Mass fraction] 94 % Venkata NILL [facility] 07-01-2023 13:15-0400 Diastolic blood pressure 73 mm[Hg] Venkata NILL [facility] 07-01-2023 13:15-0400 Mean blood pressure 99 mm[Hg] Venkata NILL [facility] 07-01-2023 13:15-0400 Systolic blood pressure 150 mm[Hg] Venkata NILL [facility] 07-01-2023 13:14-0400 Respiratory rate 16 /min Venkata NILL [facility] 07-01-2023 13:05-0400 Blood Pressure Location Venkata NILL [facility] 07-01-2023 13:05-0400 Body temperature 97.88 [degF] Venkata NILL [facility] 07-01-2023 13:05-0400 Mean blood pressure 98 mm[Hg] Venkata NILL [facility] 07-01-2023 13:05-0400 Respiratory rate 12 /min Venkata NILL [facility] 07-01-2023 12:55-0400 Blood Pressure Location Venkata NILL [facility] 07-01-2023 12:55-0400 Mean blood pressure 91 mm[Hg] Venkata NILL [facility] 07-01-2023 12:55-0400 Respiratory rate 10 /min Venkata NILL [facility] 07-01-2023 12:50-0400 Blood Pressure Location Venkata NILL [facility] 07-01-2023 12:50-0400 Mean blood pressure 97 mm[Hg] Venkata NILL [facility] 07-01-2023 12:50-0400 Respiratory rate 18 /min Venkata NILL [facility] 07-01-2023 12:41-0400 Body temperature 97.7 [degF] Venkata NILL [facility] 07-01-2023 10:10-0400 Heart rate 68 /min Venkata NILL [facility] 10-16-2023 09:53-0400 Mean blood pressure 97 mm[Hg] Venkata RODGERS [facility] 07-01-2023 09:52-0400 Respiratory rate 16 /min Venkata LUCIANOL [facility] 07-01-2023 09:51-0400 Body temperature 97.52 [degF] Venkata LUCIANOL [facility] 08-22-2022 11:11-0500 Blood Pressure Location Elizabeth ROLDAN [facility] 08-22-2022 11:11-0500 Diastolic blood pressure 61 mm[Hg] Elizabeth ROLDAN [facility] 08-22-2022 11:11-0500 Heart rate 68 /min Elizabeth ROLDAN [facility] 08-22-2022 11:11-0500 Respiratory rate 18 /min Elizabeth ROLDAN [facility] 08-22-2022 11:11-0500 SaO2% (BldA) [Mass fraction] 96 % Elizabeth ROLDAN [facility] 08-22-2022 11:11-0500 Systolic blood pressure 132 mm[Hg] Elizabeth ROLDAN [facility] 02-20-2022 14:09-0400 Blood Pressure Location Kalen Adan [facility] 02-20-2022 14:09-0400 Diastolic blood pressure 68 mm[Hg] Kalen Adan [facility] 02-20-2022 14:09-0400 Heart rate 75 /min Kalen Adan [facility] 02-20-2022 14:09-0400 Respiratory rate 18 /min Kalen Adan [facility] 02-20-2022 14:09-0400 SaO2% (BldA) [Mass fraction] 98 % Kalen Adan [facility] 02-20-2022 14:09-0400 Systolic blood pressure 137 mm[Hg] Kalen Adan [facility] 01-25-2022 16:20-0400 Hourly Rounding Hasan AMIR [facility] 01-25-2022 16:20-0400 Promise to Return Hasan AMIR [facility] 01-25-2022 16:19-0400 gluc 131 mg/dL Hasan AMIR [facility] 01-25-2022 15:25-0400 Body temperature 98.24 [degF] Hasan AMIR [facility] 01-25-2022 15:25-0400 Diastolic blood pressure 36 mm[Hg] Hasan AMIR [facility] 01-25-2022 15:25-0400 Heart rate 67 /min Hasan AMIR [facility] 01-25-2022 15:25-0400 Mean blood pressure 62 mm[Hg] Hasan AMIR [facility] 01-25-2022 15:25-0400 SaO2% (BldA) [Mass fraction] 94 % Hasan AMIR [facility] 01-25-2022 15:25-0400 Systolic blood pressure 116 mm[Hg] Hasan AMIR [facility] 01-25-2022 15:20-0400 SaO2% (BldA) [Mass fraction] 94 % Hasan AMIR [facility] 01-25-2022 15:00-0400 Body temperature 97.7 [degF] Hasan AMIR [facility] 01-25-2022 15:00-0400 Diastolic blood pressure 81 mm[Hg] Hasan AMIR [facility] 01-25-2022 15:00-0400 gluc 129 mg/dL Hasan AMIR [facility] 01-25-2022 15:00-0400 Systolic blood pressure 131 mm[Hg] Hasan AMIR [facility] 01-25-2022 13:00-0400 Diastolic blood pressure 82 mm[Hg] Hasan AMIR [facility] 01-25-2022 13:00-0400 Heart rate 72 /min Hasan AMIR [facility] 01-25-2022 13:00-0400 Mean blood pressure 99 mm[Hg] Hasan AMIR [facility] 01-25-2022 13:00-0400 Respiratory rate 16 /min Hasan AMIR [facility] 01-25-2022 13:00-0400 Systolic blood pressure 133 mm[Hg] Hasan AMIR [facility] 01-25-2022 12:34-0400 gluc 106 mg/dL Hasan AMIR [facility] 01-25-2022 09:00-0400 Heart rate 68 /min Hasan AMIR [facility] 01-25-2022 09:00-0400 SaO2% (BldA) [Mass fraction] 98 % Hasan AMIR [facility] 01-25-2022 05:40-0400 Mean blood pressure 96 mm[Hg] Hasan AMIR [facility] 01-25-2022 05:40-0400 Respiratory rate 15 /min Hasan AMIR [facility] 01-24-2022 18:30-0400 Blood Pressure Location Hasan AMIR [facility] 01-24-2022 17:00-0400 Heart rate 75 /min Hasan AMIR [facility] 01-24-2022 17:00-0400 Respiratory rate 18 /min Hasan AMIR [facility] 01-24-2022 16:00-0400 Heart rate 81 /min Hasan AMIR [facility] 01-24-2022 14:26-0400 gluc Hasan AMIR [facility] 01-03-2022 07:43-0400 Blood Pressure Location Preethi LAFLEUR [facility] 01-03-2022 07:43-0400 Diastolic blood pressure 70 mm[Hg] Preethi LAFLEUR [facility] 01-03-2022 07:43-0400 Heart rate 72 /min Preethi LAFLEUR [facility] 01-03-2022 07:43-0400 Respiratory rate 16 /min Preethi LAFLEUR [facility] 01-03-2022 07:43-0400 Systolic blood pressure 135 mm[Hg] Preethi LAFLEUR [facility] [place] Encounters Encounter Date Encounter Type Care Provider Facility Start: 12-30-2024 ambulatory Preethi Rodriguez ty:[facility] [place] Start: 12-24-2024 ambulatory Preethi Rodriguez ty:[id number] Start: 12-14-2024 End: 12-14-2024 Clinisync Result Encounter Generic External Data Provider [facility] Unsolicited Start: 12-14-2024 End: 12-14-2024 Clinisync Result Encounter Generic External Data Provider [facility] Unsolicited Start: 10-06-2024 End: 10-06-2024 Bamboo flowsheet Ron Mcnamara MD Work Phone: [facility] Start: 10-06-2024 End: 10-06-2024 Bamboo flowsheet Ron Mcnamara MD Work Phone: [...] 08-26-2024 End: 08-26-2024 Telephone encounter Muna Simón [facility] Comment on above: Med Refill Start: 08-26-2024 End: 08-26-2024 ambulatory Preethi LAFLEUR Facility:[facility] Start: 08-25-2024 End: 08-25-2024 Office outpatient visit 15 minutes Ron Mcnamara MD Work Phone: [facility] Comment on above: Diabetes mellitus wi thout complication (CMS/HCC) Start: 08-25-2024 End: 08-25-2024 ambulatory RON MCNAMARA Not Available Start: 08-25-2024 End: 08-25-2024 Bamboo marissaheet Ron Mcnamara MD Work Phone: [facility] Start: 08-25-2024 End: 08-25-2024 Bamboo flowsheet Ron Mcnamara MD Work Phone: [facility] Start: 06-04-2024 End: 06-04-2024 Telephone encounter Sandra August [facility] Work Phone: [facility] Comment on above: Care Coordination Start: 03-25-2024 End: 03-25-2024 ambulatory SANDRA GARDNERILLER Not Available Start: 03-25-2024 End: 03-25-2024 Lab Drop off Preethi LAFLEUR [facility] Start: 03-25-2024 End: 03-25-2024 ambulatory Preethi LAFLEUR Facility:[facility] Start: 03-25-2024 End: 03-25-2024 Patient encounter procedure Preethi LAFLEUR [facility] Start: 02-13-2024 End: 02-13-2024 ambulatory ASH BARROS Not Available Start: 01-30-2024 End: 01-30-2024 Patient encounter procedure Ron Mcnamara MD Work Phone: [facility] Comment on above: Screening for hyperc holesterolemia (Primary Dx); Type 2 diabetes mellitus without complication, without long-term current use of insulin (CMS/HCC); High risk medication use; Aortic valve stenosis, etiology of cardiac valve disease unspecified; Primary hypertension (CMS/HCC) Start: 01-30-2024 End: 01-30-2024 ambulatory RON MCNAMARA Not Available Start: 07-26-2023 End: 07-26-2023 Patient encounter procedure Venkata RODGERS [facility] [place] Start: 07-01-2023 End: 07-01-2023 Admission to same day surgery center Venkata RODGERS [facility] Start: 04-10-2023 Patient encounter status Jacquelin Junenya BRAY Work Phone: [facility] Start: 08-23-2022 End: 08-23-[address] PREETHI LAFLEUR Facility:[facility] Start: 08-22-2022 End: 08-22-2022 Patient encounter procedure Elizabeth L YULI [facility] Start: 06-28-2022 End: 06-28-2022 Patient encounter procedure JOSE MCFADDEN [facility] Start: 06-21-2022 End: 06-21-[address] PREETHI LAFLEUR Facility:[facility] Start: 06-18-2022 End: 06-18-2022 Patient encounter procedure Preethi LAFLEUR [facility] Start: 05-03-2022 End: 05-03-[address] PREETHI LAFLEUR Facility:[facility] Start: 05-01-2022 Encounter for prepro cedural laboratory examination DR PREETHI LAFLEUR [facility] Start: 04-27-2022 End: 04-28-[address] PREETHI LAFLEUR Facility:[facility] Start: 04-27-2022 End: 04-28-2022 Encounter for preprocedural laboratory examination DR PREETHI LAFLEUR Facility:[facility] Start: 02-20-2022 End: 02-20-2022 Patient encounter procedure Kalen Adan [facility] Start: 01-25-[address] PREETHI LAFLEUR [facility] ity:[facility] Start: 01-24-2022 End: 01-25-2022 Observation Karina NESS [facility] Start: 01-17-2022 Encounter for prepro cedural cardiovascular examination DR PREETHI LAFLEUR [facility] Start: 01-17-2022 Encounter for prepro cedural laboratory examination DR PREETHI LAFLEUR [facility] Start: 01-16-2022 End: 01-17-[address] PREETHI LAFLEUR Facility:[facility] Start: 01-16-2022 End: 01-17-2022 Encounter for preprocedural cardiovascular examination DR PREETHI LAFLEUR Facility:[facility] Start: 01-03-2022 End: 01-03-2022 Patient encounter procedure Preethi LAFLEUR [facility] Start: 11-06-2021 End: 11-06-[address] PREETHI LAFLEUR Facility:[facility] Start: 10-09-2021 End: 10-09-[address] PREETHI LAFLEUR Facility:[facility] Start: 08-31-2021 End: 08-31-[address] PREETHI LAFLEUR Facility:[facility] Start: 08-28-[address] PREETHI LAFLUER [facility] ity:[facility] Procedures Date Procedure Procedure Detail Performing Clinician Start: 12-14-2024 ALL CBC WITH AUTO DIFF Generic External Data Provider Start: 12-14-2024 ECG 12-LEAD Generic Ex ternal Data Provider Start: 10-06-2024 Hemoglobin glycosylated a1c Ron Mcnamara MD Work Phone: Start: 08-25-2024 Hemoglobin glycosylated a1c Ron Mcnamara MD Work Phone: Start: 03-25-2024 Flexible cystoscopy Iveth LAFLEUR Start: 01-30-2024 Hemoglobin glycosylated a1c Ron Mcnamara MD Work Phone: Start: 07-01-2023 Laparoscopic repair of inguinal hernia Venkata RODGERS Start: 06-12-2023 Cystoscopy Venkata NI LL Start: 11-14-2022 Cystoscopy Venkata ROTH Start: 01-03-2022 Cystoscopy Preethi MOORE Start: 08-09-2021 Cystoscopy Preethi MOORE Start: 05-10-2021 Cystoscopy Preethi MOORE Start: 01-18-2021 Cystoscopy Preethi MOORE Start: 10-27-2020 Repair of right ingu inal hernia Preethi LAFLEUR Start: 08-30-2020 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 Preethi LAFLEUR Start: 06-22-2020 Cystoscopy Preethi MOORE Start: 03-30-2020 Cystoscopy Preethi MOORE Start: 01-06-2020 Cystoscopy Preethi MOORE Start: 08-18-2019 [...] lithalopaxy Start: 02-01-2016 Urodynamic studies Ivethr avi ODILON Start: 05-30-2010 Laser bladder lesion therapy Preethi LAFLEUR Start: 07-20-2009 Cystoscopy Preethi JOHN PAUL LITTLEVamsi Comment on above: 10/26/09, 01/25/10, 03/07, 09/20/10, [...] Annual Wellness (AWV) Medicare Annual Wellness (AWV) [facility] Healthcare Start: 01-04-2025 Hemoglobin A1c measurement Diabetes: Hemoglobin A1C [facility] Start: 01-04-2025 End: 01-04-2025 Patient encounter procedure 01/04/2025 9:15 AM EDT Office Visit [facility] [address] [place] [address] Ron Mcnamara MD [address] [place] [address] [facility] Start: 11-23-2024 Hemoglobin A1c measurement Diabetes: Hemoglobin A1C [facility] Start: 10-06-2024 End: 10-06-2024 Patient encounter procedure [facility] Comment on above: Arrived Start: 08-27-2024 End: 08-27-2024 Patient encounter procedure 08/27/2024 8:15 AM EST Office Visit [facility] [address] [place] [address] Ron Mcnamara MD [address] [place] [address] [facility] Start: 08-25-2024 End: 08-25-2024 Patient encounter procedure 08/25/2024 3:15 PM EST Office Visit [facility] [address] [place] [address] Ron Mcnamara MD [address] [place] [address] Arrived [facility] Comment on above: Arrived Start: 05-17-2024 Influenza vaccination Influenza Vaccine (#1) [facility] Start: 05-01-2024 Hemoglobin A1c measurement Diabetes: Hemoglobin A1C [facility] Start: 01-30-2024 End: 01-29-2025 Comprehensive metabolic 2000 panel - Serum or Plasma Comprehensive metabolic panel Lab Routine Type 2 diabetes mellitus without complication, without long-term current use of insulin ([facility]) High risk medication use Expected: 01/30/2024 (Approximate), Expires: 01/29/2025 [facility] Work Phone: Comment on above: Expected: 01/30/2024 (Approximate), Expi res: 01/29/2025 Start: 01-30-2024 End: 01-29-2025 Lipid 1996 panel - Serum or Plasma Lipid panel Lab Routine Screening for hypercholesterolemia Expected: 01/30/2024 (Approximate), Expires: 01/29/2025 [facility] Comment on above: Expected: 01/30/2024 (Approximate), Expi res: 01/29/2025 Start: 01-09-2024 Urine screening for protein Diabetes: Urine Protein Screening [facility] Start: 03-29-2023 Urine screening for protein Diabetes: Urine Protein Screening [facility] Start: 03-06-2023 Glaucoma screening Diabetes: Retinopathy Screening [facility] Immunizations Immunization Date Immunization Notes Care Provider Fa [facility] 05-19-2024 influenza virus vaccine, unspecified formulation Ron Mcnamara MD Work Phone: [facility] 06-24-2023 Influenza, High-dose Seasonal, Quadrivalent, Preservative Free Sandra Donnamiller [facility] Work Phone: [facility] 06-24-2023 influenza virus vaccine, unspecified formulation Sandra Donnamiller [employer] Work Phone: [facility] 06-18-2022 influenza, high dose seasonal, preservative-free Sandra Donnamiller [employer] Work Phone: [facility] 06-18-2022 Influenza, High-dose Seasonal, Quadrivalent, Preservative Free Sandra Donnamiller [employer] Work Phone: [facility] 07-17-2021 Covid-19 Non-us Vaccine, Product Unknown Sandra Donnamiller [employer] Work Phone: [facility] 07-17-2021 Moderna Bivalent Booster Vaccination Sandra Donnamiller [employer] Work Phone: [facility] Work Phone: 06-22-2021 Covid-19 Non-us Vaccine, Product Unknown Sandra Donnamiller [employer] Work Phone: [facility] 06-22-2021 influenza, high dose seasonal, preservative-free Sandra Donnamiller [employer] Work Phone: [facility] 06-22-2021 Influenza, High-dose Seasonal, Quadrivalent, Preservative Free Sandra Donnamiller [employer] Work Phone: [facility] 06-22-2021 Moderna Bivalent Booster Vaccination Sandra Donnamiller [employer] Work Phone: [facility] 11-25-2020 SARS-CoV-2 (COVID-19 ) Ad26 vaccine, recombinant Preethi LAFLEUR [facility] 11-04-2020 SARS-CoV-2 (COVID-19 ) Ad26 vaccine, recombinant Preethi LAFLEUR [facility] 06-20-2020 Influenza, Seasonal, Quadrivalent, Adjuvanted Sandra Donnamiller [employer] Work Phone: [facility] 06-16-2020 influenza virus vaccine, unspecified formulation Preethi LAFLEUR [facility] 06-06-2019 influenza, high dose seasonal, preservative-free Sandra Donnamiller [employer] Work Phone: [facility] 01-06-2019 pneumococcal polysaccharide vaccine, 23 valent Sandra Donnamiller [employer] Work Phone: [facility] 07-08-2018 influenza, high dose seasonal, preservative-free Sandra Donnamiller [employer] Work Phone: [facility] 07-08-2018 influenza, seasonal, injectable, preservative free Sandra Donnamiller [employer] Work Phone: [facility] 07-01-2017 influenza, high dose seasonal, preservative-free Sandra Donnamiller [employer] Work Phone: [facility] 07-02-2016 influenza, high dose seasonal, preservative-free Sandra Donnamiller [employer] Work Phone: [facility] 2015 influenza, high dose seasonal, preservative-free Sandra Donnamiller [employer] Work Phone: [facility] 2015 pneumococcal conjuga te vaccine, 13 valent Sandra Donnamiller [employer] Work Phone: [facility] 06-02-2014 influenza, seasonal, injectable Sandra Donnamiller [employer] Work Phone: [facility] 06-30-2013 influenza, seasonal, injectable Sandra Donnamiller [employer]MER Work Phone: [facility] Healthcare Payers Date Payer Category Payer Private Health Insurance [facility] [id number] 2022 Unknown [facility] [place] [facility] [id number] 2022-Present [id number] [facility] [place] [address] [id number] 2009 Medicare [id number] 1959 Medicare [id number] 1959 Unknown [id number] 1944 Unknown [id number] 2.16.840.1.664029.3.579 .2.593 1944 Unknown [id number] 2.16.840.1.246956.3.579 .2.593 1944 Unknown [id number] 2.16.840.1.255740.3.579 .2.593 1944 Unknown [id number] 2.16.840.1.662503.3.579 .2.593 1944 Unknown [id number] 2.16.840.1.278253.3.579 .2.593 1944 Unknown [id number] 2.16.840.1.350116.3.579 .2.593 1944 Unknown [id number] 2.16.840.1.271614.3.579 .2.593 1944 Unknown [id number] 2.16.840.1.348016.3.579 .2.593 1944 Unknown [id number] 2.16.840.1.055088.3.579 .2.593 1944 Unknown [id number] 2.16.840.1.999236.3.579 .2.593 1944 Unknown [id number] 2.16.840.1.143682.3.579 .2.727 1944 Unknown [id number] 2.16.840.1.437183.3.579 .2.727 1944 Unknown [id number] 2.16.840.1.228688.3.579 .2.727 1944 Unknown [id number] 2.16.840.1.626368.3.579 .2.1259 1944 Unknown [id number] 2.16.840.1.310839.3.579 .2.1259 1944 Unknown [id number] 2.16.840.1.604026.3.579 .2.1259 1944 Unknown [id number] 2.16.840.1.937466.3.579 .2.1259 1944 Unknown [id number] 2.16.840.1.682185.3.579 .2.1259 1944 Unknown [id number] 2.16.840.1.585862.3.579 .2.727 1944 Unknown [id number] 2.16.840.1.258125.3.579 .2.727 Social History Date Type Detail Facility Start: 01-03-2022 End: 03-07-2023 Tobacco smoking status Ex-smoker (finding) [facility] Start: 03-07-2023 End: 01-30-2024 Sex Assigned At Male [facility] Tobacco smoking status Never [facility] [place] End: 09-16-1994 History of tobacco use Current [...] Sex assigned at Not on file [facility] Medical Equipment Procedure Code Equipment Code [...] Venkata RODGERS MD 07/01/23 Non Biological Other {[id number] FDA Start: 07-01-2023 INGUINAL HERNIA REPAIR ADULT Venkata RODGERS MD 10/27/20 Unknown Unknown FDA Start: 10-27-2020 INGUINAL HERNIA REPAIR ADULT Venkata RODGERS MD 10/27/20 Unknown Unknown FDA Start: 10-27-2020 INGUINAL HERNIA REPAIR ADULT Venkata RODGERS MD 10/27/20 Unknown Unknown FDA Start: 10-27-2020 Functional Status Date Assessment Result Facility 03-25-2024 Functional Status N/A [facility] 06-24-2023 Functional Status No [facility] 08-22-2022 Functional Status N/A [facility] Clinical Notes 01-03-2022 to 10-06-2024 Ron Mcnamara MD - 10/06/2024 9:00 AM ESTTelephone Encounter - Muna [facility] - 08/26/2024 11:18 AM ESTTelephone Encounter - Muna Gr - 08/26/2024 11:18 AM ESTRadiology Note Date [...] Protein Screening 03/29/2023 documented in this encounter [facility] 08-26-2024 Telephone encounter Note Pt would like all of his meds refilled at 90 day supply if possible, sent out beginning of the yr. He is only using [facility] in [place]. Also he requests that the metformin be sent in lower mg so that he doesn't have to cut the pills in half. [facility] 08-26-2024 Miscellaneous Notes Pt would like all of his meds refilled at 90 day supply if possible, sent out beginning of the yr. He is only using [facility] in [place]. Also he requests that the metformin be sent in lower mg so that he doesn't have to cut the pills in half. documented in this encounter [facility] 08-26-2024 Note Patient Education Oncology Transurethral Resection [...] these instructions at home: Medicines ??? Take xjkk-tow-jmgajim and prescription medicines only as told by [...] keep your urine pale yellow. ? Take gpdq-wbq-wlcmcrg or prescription medicines. ? Eat foods that [...] pain in your lower abdomen. ??? Take zmak-nhe-zldoash and prescription medicines only as told by [...] your drainage bag. (more content not included)... [facility] 08-25-2024 History of Presen t illness Narrative [...] and has been drinking flavored water from [employer] [address]. He has not consumed Diet Coke for [...] Hemoglobin A1C 05/01/2024 documented in this encounter [facility] 06-04-2024 Telephone encounter Note Patient in office today with - they are planning a trip next week and is concerned about health during the trip - 72 day cruise. He has been prescribed a course of antibiotics by Dr. Mcnamara for similar trips in the past. Requesting same. [facility] 06-04-2024 Miscellaneous Notes Patient in office today with - they are planning a trip next week and is concerned about health during the trip - 72 day cruise. He has been prescribed a course of antibiotics by Dr. Mcnamara for similar trips in the past. Requesting same. documented in this encounter [facility] 03-25-2024 Evaluation + Plan note Diagnostic Tests PendingUroVysion Fish and Urine Cyto ([facility]) 03/25/24 [facility] 03-25-2024 Hospital Discharg e instructions Patient [...] if anything looks unusual. Men with a moikvn-zdvw-pgncpm risk for skin cancer may want to see a skin care therapist (manager pipeline) for an annual body check. What are the benefits of screening? Cancer screening is done to look for cancer in the very early stages, before it spreads and becomes harder to treat and before you would start to notice symptoms. Finding cancer early improves the chances of successful treatment. It may save your life. Where to find more information [employer]: www.cancer.org Centers for Disease Control and Prevention: www.cdc.gov National Cancer [place]: www.cancer.gov Contact a health care provider if: [...] provider. Document Revised: 01/29/2022 Document Reviewed: 07/29/2020 [employer] Patient Education 2022 [email or web address]. Follow Up Care 03/09/2024 14:16:55 With:ODILON JENKINS, Preethi Arango, URL Address: [facility] [address] , [place] [address]- When: Unknown [facility] 03-25-2024 Note Patient Education Oncology Cancer Screening [...] if anything looks unusual. Men with a nrzagn-wuxh-vgwija risk for skin cancer may want to see a skin care therapist (manager pipeline) for an annual body check. What are the benefits of screening? Cancer screening is done to look for cancer in the very early stages, before it spreads and becomes harder to treat and before you would start to notice symptoms. Finding cancer early improves the chances of success (more content not included)... [facility] 01-30-2024 History of Presen t illness Narrative [...] Protein Screening 01/09/2024 documented in this encounter [facility] 07-12-2023 Hospital Discharg e instructions Follow Up Care 07/12/2023 09:35:04 With:ANA MARIA JENKINS, ALIX Torres Address: [address] [place], [place] [phone] When: only if needed [facility] [place] 07-01-2023 Hospital Discharg e instructions Patient Education [...] as possible. If the spirometer includes a health and wellness coach indicator, use this to guide you [...] provider. Document Revised: 11/21/2020 Document Reviewed: 11/21/2020 [employer] Patient Education 2022 [email or web address]. 07/01/2023 13:06:40 Post Op Patient Instructions - FT (CUSTOM) Follow Up Care 06/21/2023 13:56:36 With:ALIX Pretty Address: [address] [place] [address], [facility] [address] [phone] [facility] (1) When: Unknown Comments:Call for any problems.Call for followup appointment [facility] 01-21-2023 Evaluation + Plan note Future Scheduled TestsEcho Transthoracic Complete 01/21/23 [facility] 02-20-2022 Hospital Discharg e instructions Follow Up Care 02/20/2022 14:37:23 With:Loco JENKINS, Kalen De La Torre Address: [address] [place] [address] [place] [phone] When: Unknown [facility] 01-25-2022 Evaluation + Plan note Extrac constantin from: Title:APSO Note Author:Karina NESS MD Date: 1. Expressive aphasia (R47.0 1: Aphasia) [...] Vital Signs Weight Extracted from: Title:ED Note Author:Zachariah MISHRAValentínn Dari Date:01/24/22 1. Stroke-like symptom (R29. 90: Unspecified symptoms and signs involving the nervous system) Orders: Automated Diff Basic Metabolic Panel CBC w/ Auto Diff [place] Stroke Scale Communication Order Physician to Nursing [...] Reflex Vital Signs XR Chest Single View [facility]05-12-2022 Hospital Discharge instructions Patient Education 01/25/2022 08:45:46 Core Measures: Stroke (Cerebrovascular Accident) [facility], (Custom) Stroke (Cerebrovascular Accident) A stroke is [...] factors for stroke, work with your health director long term care to control them. High [...] Please call [facility] Smoking Cessation Program at [phone] ([facility]), or [phone], ext. [phone] Diabetes: Work with your healthcare professional to [...] cholesterol diet, you can call our Jim health care assistant at [phone] Ext. [phone]. The goal for total cholesterol is less [...] your risk of stroke with your health director long term care. TREATMENT TIME IS OF [...] Measures will be takento prevent short and long-term complications, including aspiration pneumonia, blood clots in [...] for more information on strokes, log onto www.[employer] or www.strokeassociation.org or call the [employer] at . Revised 09/2018 Follow Up Care 01/24/2022 14:20:25 With:Kolton Rosas Address: [facility] [address] [place] [address]- Business (1) When:02/08/2022 10:40:00 With:Ron Mcnamara Address: [address] [place] [address]- Business (1) When:02/02/2022 10:30:00 [facility]04-20-2022 Evaluation + Plan note Diagnostic Tests Pending * UroVysion Fish and Urine Cyto ([facility]) 01/03/22 [facility] 04-20-2022 Hospital Discharge instructions Patient Education 01/03/2022 08:01:54 [...] Follow these instructions at home: Medicines Take tlyz-ymp-xlzcmic and prescription medicines only as told by [...] 08/30/2001 Document Revised: 08/15/2018 Document Reviewed: 09/18/2017 [employer] Patient Education 2020 [email or web address]. Follow Up Care 12/21/2021 13:26:24 With:ODILON JENKINS, Preethi Arango, URL Address: [facility] [address], [place] [phone] When: Unknown [facility] Evaluation + Plan note Future Appointments Appointment Date:08/22/2022 11:15:00 AM Scheduled Provider:Kalen Adan MD Location:[facility]Cardiology Clinic Appointment [facility] Future Appointments Appointment Date:08/20/2022 08:00:00 AM Scheduled Provider: Location:[facility] Appointment Type:URO Nurse Visit Appointment Date:08/22/2022 11:15:00 AM Scheduled Provider:Kalen Adan MD Location:[facility].Cardiology Clinic Appointment Type:Cardiology Follow Up (FT) [facility] Evaluation + Plan note Future Appointments Appointment Date:08/20/2022 08:00:00 AM Scheduled Provider: Location:[facility] Appointment Type:URO Nurse Visit Appointment Date:08/22/2022 11:15:00 AM Scheduled Provider:Kalen Adan MD Location:[facility]Cardiology Clinic Appointment Type:Cardiology Follow Up (FT) Diagnostic Tests Pending * Urine Culture [facility]28[facility]22 [facility] Future Appointments Appointment Date:08/21/2023 08:30:00 AM Scheduled Provider: Location:[facility] Appointment Type:URO Nurse Visit Future Scheduled Tests Radiology* Echo Transthoracic Complete 01/21/23 [facility] [place] evaluation note* Diagnosis Screening for hypercholesterolemia- Primary Screening for lipoid disorders Type 2 diabetes mellitus without complication, without long-term current use of insulin (CMS/HCC) High risk medication use Aortic valve stenosis, etiology of cardiac valve disease unspecified Primary hypertension (CMS/HCC) Unspecified essential hypertension documented in this encounter [facility] HealthcareEvaluation note* Diagnosis Aortic valve stenosis, etiology of cardiac valve disease unspecified Type 2 diabetes mellitus without complication, without long-term current use of insulin (CMS/HCC) Primary hypertension (CMS/HCC) Unspecified essential hypertension Gastroesophageal reflux disease without esophagitis Esophageal reflux documented in this encounter [facility] HealthcareEvaluation note* Diagnosis Diabetes mellitus without complication (CMS/HCC) Type II or unspecified type diabetes mellitus without mention of complication, not stated as uncontrolled documented in this encounter [facility] HealthcareEvaluation note* Diagnosis Encounter for counseling for travel- Primary documented in this encounter [facility] HealthcareEvaluation note* Diagnosis Diabetes mellitus without complication [...] disease, unspecified (CMS/HCC) [facility] N[facility] No data available for this section [facility] Discharge instructions No data available for this section [facility] No data available for this section [facility] [place] Summary Purpose Family History No Family History [...] section and content) DATE CREATED AUTHOR 10/11/2021 [facility] DATE CREATED AUTHOR AUTHOR'S ORGANIZ ATION 08/27/2022 [facility] [place] [facility] DATE CREATED AUTHOR AUTHOR'S ORGANIZ ATION 09/01/2024 [facility] DATE CREATED AUTHOR AUTHOR'S ORGANIZ ATION 10/07/2024 [facility] EPIC DATE CREATED AUTHOR AUTHOR'S ORGANIZ ATION 11/07/2024 [facility] DATE CREATED AUTHOR AUTHOR'S ORGANIZ ATION 11/30/2024 [facility] Care Team (unrecognized sect ion and content) Automatic Grinding Machine Operator Relationship Specialty Start Date End Date Ron Mcnamara MD [address] [place] [address] PCP - ACO Reach 02/07/23 Ron Mcnamara MD [address] [place] [address] PCP - General Family Medicine 02/25/23 Automatic Grinding Machine Operator Relationship Specialty Start Date End Date Ron Mcnamara MD [address] [place] [address] PCP - ACO Reach 02/07/23 Ron Mcnamara MD [address] [place] [address] PCP - General Family Medicine 02/25/23 Automatic Grinding Machine Operator Relationship Specialty Start Date End Date Ron Mcnamara MD [address] [place] [address] PCP - ACO Reach 02/07/23 Ron Mcnamara MD [address] [place] [address] PCP - General Family Medicine 02/25/23 Automatic Grinding Machine Operator Relationship Specialty Start Date End Date Ron Mcnamara MD [address] [place] [address] PCP - ACO Reach 02/07/23 Ron Mcnamara MD [address] [place] [address] PCP - General Family Medicine 02/25/23 Automatic Grinding Machine Operator Relationship Specialty Start Date End Date Ron Mcnamara MD [address] [place] [address] PCP - ACO Reach 02/07/23 Ron Mcnamara MD [address] [place] [address] PCP - General Family Medicine 02/25/23 Reason [...] BE BASED ON THE PRIMARY CLINICAL RECORDS. [facility]. provides no warranty or guarantee of the accuracy or completeness of information in this document.
[2024-12-24 08:48] LABS: Glucometer 150 mg/dL (74-106)
--- NOTE | 2024-12-24 09:23 | PC.NURSE ---
3 attempts by communications writer and another staff nurse
[2024-12-24] MEDS: LACTATED RINGER'S SOLUTION 1,000 ML 50 ML IV ×2 (09:24→11:33)
[2024-12-24] MEDS: CIPROFLOXACIN 400 MG/200 ML D5W PREMIX 200 MG IV (10:07)
--- NOTE | 2024-12-24 11:18 | PM.URSON ---
Urology Surgery Operative Note Operative Note Procedure Date: 12/24/24 Time Out Performed: yes Pre-op Diagnosis: Recurrent bladder tumors Post-op Diagnosis: same as pre-op Procedures performed: 1. Cystoscopy. 2. Transurethral resection of bladder tumors approximately 5 cm Anesthesia: FREDO Primary Surgeon: Dylan Lafleur Complications: None Estimated blood loss (mL): 5 Findings: Multiple papillary bladder tumors. Several areas of erythematous tiny raised lesions. Specimens: Bladder tumor pieces. 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 He now presents for TURBT. He has signed an informed consent after risks were explained. Detailed description of Procedure: The patient was brought to the operating room and placed on the operating room table in the supine position. SCDs were placed on the lower extremities and turned on and functioning during the entire case. Timeout was done by all parties in the room. We all agreed upon the patient's identification and the planned procedures for this patient. Genn. anesthesia was then administered. The patient was then repositioned into the modified dorsal lithotomy position. All pressure points were satisfactorily padded. Genitalia were sterilely prepped and draped in usual fashion. I started by passing a [employer] [place] Olympus resectoscope with a standard bipolar loop electrode per urethra and into the bladder. Anterior urethra was normal. 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 Careful panendoscopy in the bladder revealed the previously seen tumors from the office cystoscopy located at the anterior wall and the dome. A few other papillary tumors were noted in the region and several very tiny erythematous papillary patches of tumors were seen on the back wall which were not appreciated at the office cystoscopy. All of the substantial tumors were uniformly and deeply resected in the usual fashion. The resection beds were coagulated. The tissue was irrigated out with the Ilich evacuator and sent for permanent sections. Tiny papillary tumors on an erythematous bed were coagulated. Upon completion there was no evidence of any tumor or erythematous area. The ureteral orifices were untouched. I elected not to place a Love catheter. The scope was then removed after verifying that there was no bleeding and no tumors remaining. The anesthetic was then reversed. He was then transferred to a [facility] bed and wheeled to PACU in stable condition.
--- NOTE | 2024-12-24 11:38 | PC.NURSE ---
Patient denies pain but is hungry. Eating crackers and drinking soda
--- NOTE | 2024-12-24 11:45 | PC.NURSE ---
patient complains of scratchy throat and coughing
--- NOTE | 2024-12-24 13:16 | PC.NURSE ---
1250: ambulates to bathroom with minimal assistance,pt voids without difficulty.
== END 2024-12-24 13:10 | disposition home or self-care (01) ==
PROVIDERS: PCP Family Medicine; Visit Provider Urology
PROC: (CPT 52234; principal; 2024-12-24 09:30)
DX: C67.9 Malignant neoplasm of bladder, unspecified (principal); Z85.51 Personal history of malignant neoplasm of bladder; K21.9 Gastro-esophageal reflux disease without esophagitis; E78.5 Hyperlipidemia, unspecified; I10 Essential (primary) hypertension; E11.9 Type 2 diabetes mellitus without complications; Z87.891 Personal history of nicotine dependence; Z79.84 Long term (current) use of oral hypoglycemic drugs
CPT/HCPCS: 52234; 36415; 82948; 88307; J0131; J0744; J1100; J2250; J2371; J2704; J3010